=== PATIENT | female | born 1945 | race African-American/Black ===

== ENCOUNTER 2018-12-17 20:14 | Inpatient (IN) | payer MEDICARE ==
--- NOTE | 2018-12-17 20:47 | ER Document Report ---
ED Medical Screen (RME) - General Chief Complaint: Shortness Of Breath Stated Complaint: SHORTNESS OF BREATH,RIGHT HAND NUMBNESS/WEAKNESS Time Seen by Provider: 12/17/18 20:34 Notes: Patient is a 73-year-old female with a history of hypertension, MS, asthma, stroke, chronic bronchitis who presents to the emergency department with a chief complaint of shortness of breath. Patient states that over the past few days she has noticed she has become more short of breath when ambulating. Patient has had a dry cough. Patient states she feels like she can only take shallow breaths. Patient states she has not had a fever or chest pain. Patient denies nausea, vomiting, diarrhea or specific abdominal pain. The daughter who presents to triage with the patient states that the patient is an attic and has been smoking crack cocaine daily for years. They are recently visiting the area and the last use of crack cocaine was 3 to 4 days ago. Patient also smokes marijuana and drinks beer daily as well as smoking cigarettes. Patient states s he would like help with addiction. The daughter states they brought her to [place] and hopes to move to the area and get away from her friends who do drugs. TRAVEL OUTSIDE OF THE [place] IN LAST 30 DAYS: No Physical Exam - Vital signs Vitals: Temp Pulse Resp BP Pulse Ox 98.4 F 103 H 18 131/78 H 97 12/17/18 20:27 12/17/18 20:27 12/17/18 20:27 12/17/18 20:27 12/17/18 20:27 - Respiratory Respiratory status: No respiratory distress Breath sounds: Nonproductive cough, Rhonchi - Rhonchi that clears with cough. Chest palpation: Normal - Abdominal Inspection: Normal Distension: No distension Bowel sounds: Normal Tenderness: Nontender Organomegaly: No organomegaly Course - Re-evaluation Re-evalutation: 12/17/18 20:45 Upon initial evaluation in triage patient is sitting upright on the wheelchair and is able to speak in clear complete sentences. She is nontoxic appearing and is not in any distress. Will obtain basic lab work as well as a chest x-ray and EKG. I have greeted and performed a rapid initial assessment of this patient. A comprehensive ED assessment and evaluation of the patient, analysis of test results and completion of the medical decision making process will be conducted by additional ED providers. - Vital Signs Vital signs: Temp Pulse Resp BP Pulse Ox 98.4 F 103 H 18 131/78 H 97 12/17/18 20:27 12/17/18 20:27 12/17/18 20:27 12/17/18 20:27 12/17/18 20:27
--- NOTE | 2018-12-17 21:42 | RADIOLOGY REPORT (SQ) ---
XR CHEST 2 VIEWS EXAM DATE: 12/17/2018 8:46 PM CDT HISTORY: Shortness of breath, dry cough. COMPARISON: None. FINDINGS: The heart size is within normal limits. No consolidation, pleural effusion, or pneumothorax is seen. Hyperlucent lungs suggestive of emphysema. Compression deformity of lower thoracic vertebra, age indeterminate. IMPRESSION: No evidence of acute cardiopulmonary disease.
[2018-12-17 22:14] LABS: HEMATOCRIT 20.4 % (36.0-47.0); MEAN CORPUSCULAR HEMOGLOBIN 19.7 pg (27.0-33.4); MEAN CORPUSCULAR HGB CONC 30.2 g/dL (32.0-36.0); MEAN CORPUSCULAR VOLUME 65 fl (80-97); PLATELET COUNT 498 10^3/uL (150-450); RED BLOOD COUNT 3.12 10^6/uL (3.72-5.28); RED CELL DISTRIBUTION WIDTH 24.7 % (11.5-14.0); WHITE BLOOD COUNT 8.3 10^3/uL (4.0-10.5)
[2018-12-17 22:20] LABS: APPEARANCE,URINE CLEAR; BILIRUBIN,URINE NEGATIVE (NEGATIVE); COLOR,URINE STRAW; GLUCOSE, URINE NEGATIVE (NEGATIVE); KETONES,URINE NEGATIVE (NEGATIVE); LEUKOCYTE ESTERASE,URINE NEGATIVE (NEGATIVE); NITRITE,URINE NEGATIVE (NEGATIVE); PROTEIN,URINE NEGATIVE (NEGATIVE); URINE SPECIFIC GRAVITY 1.005; UROBILINOGEN,URINE NEGATIVE mg/dL (<2.0)
[2018-12-17 22:28] LABS: HEMOGLOBIN 6.2 g/dL (12.0-15.5)
[2018-12-17 22:31] LABS: URINE AMPHETAMINES SCREEN NEGATIVE; URINE BARBITURATES SCREEN NEGATIVE; URINE BENZODIAZEPINES SCREEN NEGATIVE; URINE MARIJUANA (THC) SCREEN NEGATIVE; URINE METHADONE SCREEN NEGATIVE; URINE PHENCYCLIDINE SCREEN NEGATIVE
[2018-12-17 22:32] LABS: ABSOLUTE MONOCYTES # (MANUAL) 0.5 10^3/uL (0.1-1.4); ALANINE AMINOTRANSFERASE 19 U/L (9-52); ALBUMIN 4.5 g/dL (3.5-5.0); ALKALINE PHOSPHATASE 105 U/L (38-126); ANION GAP 9 (5-19); ASPARTATE AMINO TRANSFERASE 28 U/L (14-36); BASOPHILS % (MANUAL) 1 % (0-2); BILIRUBIN,DIRECT 0.1 mg/dL (0.0-0.4); BILIRUBIN,TOTAL 0.1 mg/dL (0.2-1.3); BLOOD UREA NITROGEN 30 mg/dL (7-20); CALCIUM 9.6 mg/dL (8.4-10.2); CARBON DIOXIDE 27 mmol/L (22-30); CHLORIDE 102 mmol/L (98-107); EOSINOPHILS % (MANUAL) 3 % (0-6); GLUCOSE 105 mg/dL (75-110); LYMPHOCYTES % (MANUAL) 36 % (13-45); MONOCYTES % (MANUAL) 6 % (3-13); POTASSIUM 4.5 mmol/L (3.6-5.0); SEGMENTED NEUTROPHILS % (MAN) 54 % (42-78); TOTAL CELLS COUNTED 100; TOTAL PROTEIN 7.8 g/dL (6.3-8.2)
[2018-12-17 22:33] LABS: POLYCHROMASIA SLIGHT
[2018-12-17 22:34] LABS: ANISOCYTOSIS 3+; HYPOCHROMASIA 3+; OVALOCYTES 1+; PLATELET CLUMPS PRESENT; PLATELET COMMENT ADEQUATE; POIKILOCYTOSIS 1+
[2018-12-17 22:47] LABS: URINE COCAINE SCREEN UNCONFIRMED POSITIVE
[2018-12-17] MEDS ORDERED: NORMAL SALINE 250 ML IV PRN (23:16)
[2018-12-18] MEDS ORDERED: ACETAMINOPHEN 325 MG TABLET PO PRN (00:04)
--- NOTE | 2018-12-18 00:04 | ER Document Report ---
ED General - General Chief Complaint: Shortness Of Breath Stated Complaint: SHORTNESS OF BREATH,RIGHT HAND NUMBNESS/WEAKNESS Time Seen by Provider: 12/17/18 20:34 Notes: Patient is a 73-year-old female that presents to the emergency department for chief complaint of shortness of breath. Patient apparently recently moved down here to stay with her daughter, she is from [place], and is still currently using crack cocaine on a regular basis, her last use was 3 to 4 days ago, she has been more short of breath over the past week, particularly with exertion. She has had a few black stools, and had some nausea but has since resolved, she states that her stool is normal now. She denies any abdominal pain, chest pain, recent fevers, chills, night sweats, dysuria or hematuria. Denies any vaginal bleeding or discharge. No other complaints at this time. Past Medical History: Remote history of CVA, history of anemia, CAD Past Surgical History: Tonsillectomy, appendectomy Social History: Admits to daily crack cocaine use, former smoker, and occasional alcohol use. Family History: Reviewed and noncontributory for presenting illness Allergies: Reviewed, see documented allergy list. REVIEW OF SYSTEMS: Other than noted above, the 12 point review of systems was reviewed with the patient and were negative, all pertinent findings are included in the HPI. PHYSICAL EXAMINATION: Vital signs reviewed, nursing noted reviewed. GENERAL: Frail, elderly female, but in no acute distress. HEAD: Atraumatic, normocephalic. EYES: Eyes appear normal, extraocular movements intact, sclera anicteric, conjunctiva are normal. ENT: nares patent, oropharynx clear without exudates. Moist mucous membranes. NECK: Normal range of motion, supple without lymphadenopathy LUNGS: Breath sounds clear to auscultation bilaterally and equal. No wheezes rales or rhonchi. HEART: Heart rate borderline tachycardic, regular rhythm. ABDOMEN: Soft, nontender, normoactive bowel sounds. No rebound, guarding, or rigidity. No masses appreciated. EXTREMITIES: Nontender, good range of motion, no pitting or edema. NEUROLOGICAL: No focal neurological deficits. Moves all extremities spontaneously Motor and sensory grossly intact on exam. PSYCH: Normal mood, normal affect. SKIN: Warm, Dry, normal turgor, no rashes or lesions noted on exposed skin TRAVEL OUTSIDE OF THE [place] IN LAST 30 DAYS: No Past Medical History - Social History Smoking Status: Current Every Day Smoker Frequency of alcohol use: beer daily Drug Abuse: Cocaine Family History: Reviewed & Not Pertinent Patient has suicidal ideation: No Patient has homicidal ideation: No - Past Medical History Cardiac Medical History: Reports: Hx Hypertension Renal/ Medical History: Denies: Hx Peritoneal Dialysis Past Surgical History: Reports: Hx Appendectomy, Hx Section, Hx Hysterectomy, Hx Tonsillectomy Physical Exam - Vital signs Vitals: Temp Pulse Resp BP Pulse Ox 98.4 F 103 H 18 131/78 H 97 12/17/18 20:27 12/17/18 20:27 12/17/18 20:27 12/17/18 20:27 12/17/18 20:27 Course - Re-evaluation Re-evalutation: Patient seen and examined vital signs reviewed. Laboratory data and imaging were ordered as appropriate for the patient's presenting symptoms and complaint, with consideration of any critical or life threatening conditions that may be associated with their obtained history and exam as noted above. Patient was treated with 2 unit blood transfusion Results were reviewed when available and demonstrated hemoglobin of 6.2, blood work was essentially otherwise unremarkable, negative troponin, negative chest x-ray. The patient was re-evaluated and was stable, blood pressure was remaining stable , heart rate was borderline tachycardic, concern for GI bleeding, causing acute blood loss anemia, under what appears to be and likely underlying iron deficiency anemia given history of chronic anemia given 2 unit blood transfusion, will admit, for likely scope in the morning Results were discussed with the patient at this point after careful consideration I feel that that patient should be admitted to the hospital. This was discussed with the patient that it is in the best interest for their care to be admitted for further evaluation and management. Patient agreed with this plan of care. A call was placed to the admitting physician, Dr. Howard who graciously accepted the patient onto their service. *Note is created using voice recognition software and may contain spelling, syntax or grammatical errors. Laboratory 12/17/18 12/17/18 12/17/18 21:35 21:35 21:35 WBC 8.3 RBC 3.12 L Hgb 6.2 L Hct 20.4 L MCV 65 L MCH 19.7 L MCHC 30.2 L RDW 24.7 H Plt Count 498 H Total Counted 100 Seg Neutrophils % Not Reportable Seg Neuts % (Manual) 54 Lymphocytes % Not Reportable Lymphocytes % (Manual) 36 Monocytes % Not Reportable Monocytes % (Manual) 6 Eosinophils % Not Reportable Eosinophils % (Manual) 3 Basophils % Not Reportable Basophils % (Manual) 1 Absolute Neutrophils Not Reportable Abs Neuts (Manual) 4.5 Absolute Lymphocytes Not Reportable Abs Lymphs (Manual) 3.0 Absolute Monocytes Not Reportable Abs Monocytes (Manual) 0.5 Absolute Eosinophils Not Reportable Absolute Eos (Manual) 0.2 Absolute Basophils Not Reportable Abs Basophils (Manual) 0.1 Clumped Platelets PRESENT Platelet Comment ADEQUATE Polychromasia SLIGHT Hypochromasia 3+ Poikilocytosis 1+ Anisocytosis 3+ Microcytosis 3+ Ovalocytes 1+ Retic Count (auto) Absolute Retic Sodium 138.4 Potassium 4.5 Chloride 102 Carbon Dioxide 27 Anion Gap 9 BUN 30 H Creatinine 1.20 Est GFR ( Amer) 54 L Est GFR (Non-Af Amer) 44 L Glucose 105 Calcium 9.6 Total Bilirubin 0.1 L Direct Bilirubin 0.1 Neonat Total Bilirubin Not Reportable Neonat Direct Bilirubin Not Reportable Neonat Indirect Bili Not Reportable AST 28 ALT 19 Alkaline Phosphatase 105 Troponin I < 0.012 Total Protein 7.8 Albumin 4.5 Lipase 270.3 Urine Color Urine Appearance Urine pH Ur Specific [place] Urine Protein Urine Glucose (UA) Urine Ketones Urine Blood Urine Nitrite Urine Bilirubin Urine Urobilinogen Ur Leukocyte Esterase Urine RBC (Auto) U Hyaline Cast (Auto) Urine Bacteria (Auto) Squamous Epi Cells Auto Urine Ascorbic Acid Urine Opiates Screen Urine Methadone Screen Ur Barbiturates Screen Ur Phencyclidine Scrn Ur Amphetamines Screen U Benzodiazepines Scrn Urine Cocaine Screen U Marijuana (THC) Screen Blood Type Blood Type Confirm Antibody Screen Crossmatch 12/17/18 12/17/18 12/17/18 21:35 21:35 21:35 WBC RBC Hgb Hct MCV MCH MCHC RDW Plt Count Total Counted Seg Neutrophils % Seg Neuts % (Manual) Lymphocytes % Lymphocytes % (Manual) Monocytes % Monocytes % (Manual) Eosinophils % Eosinophils % (Manual) Basophils % Basophils % (Manual) Absolute Neutrophils Abs Neuts (Manual) Absolute Lymphocytes Abs Lymphs (Manual) Absolute Monocytes Abs Monocytes (Manual) Absolute Eosinophils Absolute Eos (Manual) Absolute Basophils Abs Basophils (Manual) Clumped Platelets Platelet Comment Polychromasia Hypochromasia Poikilocytosis Anisocytosis Microcytosis Ovalocytes Retic Count (auto) 2.45 Absolute Retic 0.077 Sodium Potassium Chloride Carbon Dioxide Anion Gap BUN Creatinine Est GFR ( Amer) Est GFR (Non-Af Amer) Glucose Calcium Total Bilirubin Direct Bilirubin Neonat Total Bilirubin Neonat Direct Bilirubin Neonat Indirect Bili AST ALT Alkaline Phosphatase Troponin I Total Protein Albumin Lipase Urine Color STRAW Urine Appearance CLEAR Urine pH 5.0 Ur Specific [place] 1.005 Urine Protein NEGATIVE Urine Glucose (UA) NEGATIVE Urine Ketones NEGATIVE Urine Blood NEGATIVE Urine Nitrite NEGATIVE Urine Bilirubin NEGATIVE Urine Urobilinogen NEGATIVE Ur Leukocyte Esterase NEGATIVE Urine RBC (Auto) 0 U Hyaline Cast (Auto) 1 Urine Bacteria (Auto) TRACE Squamous Epi Cells Auto <1 Urine Ascorbic Acid NEGATIVE Urine Opiates Screen NEGATIVE Urine Methadone Screen NEGATIVE Ur Barbiturates Screen NEGATIVE Ur Phencyclidine Scrn NEGATIVE Ur Amphetamines Screen NEGATIVE U Benzodiazepines Scrn NEGATIVE Urine Cocaine Screen UNCONFIRMED POSITIVE U Marijuana (THC) Screen NEGATIVE Blood Type Blood Type Confirm Antibody Screen Crossmatch 12/17/18 12/17/18 23:18 23:45 WBC RBC Hgb Hct MCV MCH MCHC RDW Plt Count Total Counted Seg Neutrophils % Seg Neuts % (Manual) Lymphocytes % Lymphocytes % (Manual) Monocytes % Monocytes % (Manual) Eosinophils % Eosinophils % (Manual) Basophils % Basophils % (Manual) Absolute Neutrophils Abs Neuts (Manual) Absolute Lymphocytes Abs Lymphs (Manual) Absolute Monocytes Abs Monocytes (Manual) Absolute Eosinophils Absolute Eos (Manual) Absolute Basophils Abs Basophils (Manual) Clumped Platelets Platelet Comment Polychromasia Hypochromasia Poikilocytosis Anisocytosis Microcytosis Ovalocytes Retic Count (auto) Absolute Retic Sodium Potassium Chloride Carbon Dioxide Anion Gap BUN Creatinine Est GFR ( Amer) Est GFR (Non-Af Amer) Glucose Calcium Total Bilirubin Direct Bilirubin Neonat Total Bilirubin Neonat Direct Bilirubin Neonat Indirect Bili AST ALT Alkaline Phosphatase Troponin I Total Protein Albumin Lipase Urine Color Urine Appearance Urine pH Ur Specific [place] Urine Protein Urine Glucose (UA) Urine Ketones Urine Blood Urine Nitrite Urine Bilirubin Urine Urobilinogen Ur Leukocyte Esterase Urine RBC (Auto) U Hyaline Cast (Auto) Urine Bacteria (Auto) Squamous Epi Cells Auto Urine Ascorbic Acid Urine Opiates Screen Urine Methadone Screen Ur Barbiturates Screen Ur Phencyclidine Scrn Ur Amphetamines Screen U Benzodiazepines Scrn Urine Cocaine Screen U Marijuana (THC) Screen Blood Type B POSITIVE Blood Type Confirm B POSITIVE Antibody Screen NEGATIVE Crossmatch See Detail Chest X-Ray 12/17/18 20:46 IMPRESSION: No evidence of acute cardiopulmonary disease. - Vital Signs Vital signs: Temp Pulse Resp BP Pulse Ox 98.4 F 103 H 18 131/78 H 97 12/17/18 20:27 12/17/18 20:27 12/17/18 20:27 12/17/18 20:27 12/17/18 20:27 - Laboratory Result Diagrams: 12/17/18 21:35 12/17/18 21:35 Laboratory results interpreted by me: 12/17/18 12/17/18 12/17/18 21:35 21:35 23:18 RBC 3.12 L Hgb 6.2 L Hct 20.4 L MCV 65 L MCH 19.7 L MCHC 30.2 L RDW 24.7 H Plt Count 498 H BUN 30 H Est GFR ( Amer) 54 L Est GFR (Non-Af Amer) 44 L Total Bilirubin 0.1 L Crossmatch See Detail - EKG Interpretation by Me Additional EKG results interpreted by me: 12/18/18 00:49 EKG demonstrates sinus rhythm with a ventricular rate of 91 bpm, normal axis, normal intervals, T wave inversion in lead III, no ST elevation. No prior for comparison. Discharge - Discharge Clinical Impression: Acute blood loss anemia GI bleeding Qualifiers: GI bleed type/associated pathology: unspecified gastrointestinal hemorrhage type Qualified Code(s): K92.2 - Gastrointestinal hemorrhage, unspecified Condition: Stable Disposition: ADMITTED INPATIENT Admitting Provider: Lee (Hospitalist) Unit Admitted: ICU
[2018-12-18] MEDS ORDERED: PANTOPRAZOLE SODIUM 40 MG VIAL IV PRN (00:08)
[2018-12-18] MEDS ORDERED: NORMAL SALINE 1000 ML 1,000 ML IV PRN (00:15)
[2018-12-18 00:23] LABS: ABSOLUTE RETICS # 0.077 10^6/uL (0.028-0.122); RETICULOCYTE COUNT (AUTO) 2.45 % (0.66-2.85)
[2018-12-18] MEDS ORDERED: IRON SUCROSE COMPLEX INJ/PF 100 MG/5 ML SDV IV ONE ×2 (00:30→00:39)
[2018-12-18] MEDS ORDERED: PANTOPRAZOLE SODIUM 80 MG in NORMAL SALINE 100 ML IV ONE (00:30)
[2018-12-18] MEDS ORDERED: PANTOPRAZOLE SODIUM 40 MG VIAL IV ONE ×2 (00:30→00:39)
[2018-12-18] MEDS ORDERED: DIAZEPAM 5 MG TABLET PO ONE (01:30)
[2018-12-18 01:57] LABS: IRON(TIBC) 16.8 ug/dL (37-170)
--- NOTE | 2018-12-18 03:22 | PDOC H&P ---
History of Present Illness Admission Date/PCP: 12/18/18 00:37 Patient complains of: Shortness of breath History of Present Illness: LOVE RAND is a 73 year old female with an unclear past medical history who presents hypomanic and acutely intoxicated by regular crack cocaine use. Patient is accompanied by her family who has relocated her from [facility] to [facility]. Patient has had complaints of shortness of breath with exertion prompting evaluation in the emergency room. She is found to have hypomania and microcytic anemia. She admits recent vomiting blood and black stools. Her history does include stomach ulcers status requiring surgery of unknown date. She denies abdominal pain current nausea, vomiting or diarrh ea. She is status post hysterectomy and denies dark-colored urine or vaginal bleeding. In the emergency room she is ordered to have 2 units of packed red blood cells and referred to the hospitalist for admission. Past Medical History Cardiac Medical History: Reports: Hypertension Pulmonary Medical History: Reports: Chronic Obstructive Pulmonary Disease (COPD) Psychiatric Medical History: Reports: Substance Abuse, Tobacco Dependency Past Surgical History Past Surgical History: Reports: Appendectomy, Section, Hysterectomy, Tonsillectomy Social History Information Source: Patient, REPLACED BY [facility] Records Smoking Status: Current Every Day Smoker Frequency of Alcohol Use: Social Drugs: Cocaine - Advance Directive Resuscitation Status: Do Not Resuscitate Family History Family History: DM, Hypertension Parental Family History Reviewed: Yes Children Family History Reviewed: Yes Sibling(s) Family History Reviewed.: Yes Review of Systems ROS unobtainable: Due to mental status Physical Exam Vital Signs: Temp Pulse Resp BP Pulse Ox 98.9 F 89 19 149/88 H 100 12/18/18 02:33 12/18/18 02:33 12/18/18 02:33 12/18/18 02:33 12/18/18 02:01 Intake & Output 12/16/18 12/17/18 12/18/18 11:59 11:59 11:59 Intake Total 0 Balance 0 Weight 32.8 kg General appearance: PRESENT: cooperative, mild distress, thin, well-developed, well-nourished. ABSENT: disheveled Head exam: PRESENT: atraumatic, normocephalic Eye exam: PRESENT: conjunctiva pale, EOMI, PERRLA. ABSENT: scleral icterus Ear exam: PRESENT: normal external ear exam Mouth exam: PRESENT: moist, tongue midline Neck exam: ABSENT: carotid bruit, JVD, lymphadenopathy, thyromegaly Respiratory exam: PRESENT: clear to auscultation morteza. ABSENT: rales, rhonchi, wheezes Cardiovascular exam: PRESENT: tachycardia. ABSENT: diastolic murmur, rubs, systolic murmur Pulses: PRESENT: normal dorsalis pedis pul Vascular exam: PRESENT: normal capillary refill GI/Abdominal exam: PRESENT: normal bowel sounds, soft. ABSENT: distended, guarding, mass, organolmegaly, rebound, tenderness Rectal exam: PRESENT: deferred Extremities exam: PRESENT: full ROM. ABSENT: calf tenderness, clubbing, pedal edema Neurological exam: PRESENT: alert, altered, awake, oriented to person, oriented to place, oriented to time, oriented to situation, CN II-XII grossly intact. ABSENT: motor sensory deficit Psychiatric exam: PRESENT: manic, unusual affect. ABSENT: depressed Skin exam: PRESENT: dry, intact, warm. ABSENT: cyanosis, rash Results Laboratory Results: 12/17/18 21:35 12/17/18 21:35 12/17/18 12/17/18 12/17/18 21:35 21:35 21:35 WBC 8.3 RBC 3.12 L Hgb 6.2 L Hct 20.4 L MCV 65 L MCH 19.7 L MCHC 30.2 L RDW 24.7 H Plt Count 498 H Seg Neutrophils % Not Reportable Lymphocytes % Not Reportable Monocytes % Not Reportable Eosinophils % Not Reportable Basophils % Not Reportable Absolute Neutrophils Not Reportable Absolute Lymphocytes Not Reportable Absolute Monocytes Not Reportable Absolute Eosinophils Not Reportable Absolute Basophils Not Reportable Retic Count (auto) Absolute Retic Sodium 138.4 Potassium 4.5 Chloride 102 Carbon Dioxide 27 Anion Gap 9 BUN 30 H Creatinine 1.20 Est GFR ( Amer) 54 L Est GFR (Non-Af Amer) 44 L Glucose 105 Calcium 9.6 Iron TIBC % Saturation Ferritin Total Bilirubin 0.1 L AST 28 ALT 19 Alkaline Phosphatase 105 Total Protein 7.8 Albumin 4.5 Lipase 270.3 Vitamin B12 Folate Urine Color STRAW Urine Appearance CLEAR Urine pH 5.0 Ur Specific [place] 1.005 Urine Protein NEGATIVE Urine Glucose (UA) NEGATIVE Urine Ketones NEGATIVE Urine Blood NEGATIVE Urine Nitrite NEGATIVE Ur Leukocyte Esterase NEGATIVE Urine RBC (Auto) 0 Blood Type Antibody Screen 12/17/18 12/17/18 12/17/18 21:35 21:35 23:18 WBC RBC Hgb Hct MCV MCH MCHC RDW Plt Count Seg Neutrophils % Lymphocytes % Monocytes % Eosinophils % Basophils % Absolute Neutrophils Absolute Lymphocytes Absolute Monocytes Absolute Eosinophils Absolute Basophils Retic Count (auto) 2.45 Absolute Retic 0.077 Sodium Potassium Chloride Carbon Dioxide Anion Gap BUN Creatinine Est GFR ( Amer) Est GFR (Non-Af Amer) Glucose Calcium Iron 16.8 L TIBC 482 H % Saturation 3 Ferritin 27.60 Total Bilirubin AST ALT Alkaline Phosphatase Total Protein Albumin Lipase Vitamin B12 434.0 Folate 10.90 Urine Color Urine Appearance Urine pH Ur Specific [place] Urine Protein Urine Glucose (UA) Urine Ketones Urine Blood Urine Nitrite Ur Leukocyte Esterase Urine RBC (Auto) Blood Type B POSITIVE Antibody Screen NEGATIVE 12/17/18 21:35 Troponin I < 0.012 Impressions: Chest X-Ray 12/17/18 20:46 IMPRESSION: No evidence of acute cardiopulmonary disease. Assessment and Plan - Diagnosis (1) GI bleeding Qualifiers: GI bleed type/associated pathology: unspecified gastrointestinal hemorrhage type Qualified Code(s): K92.2 - Gastrointestinal hemorrhage, unspecified Is this a current diagnosis for this admission?: Yes Plan: Likely upper GI bleed given history, IV Protonix, transfused 2 units of packed red blood cells, follow-up PT/INR, CBC and surgical consult (2) Acute blood loss anemia Is this a current diagnosis for this admission?: Yes Plan: Secondary to #1, clearly microcytic, iron, follow-up posttransfusion CBC (3) Cocaine abuse Is this a current diagnosis for this admission?: Yes Plan: Valium as needed, supportive measures - Time Time Spent with patient: 25-34 minutes - Inpatient Certification Medical Necessity: Need Close Monitoring Due to Risk of Patient Decompensation
[2018-12-18 03:53] LABS: INTERNATIONAL RATION (INR) 0.94; PROTHROMBIN TIME 12.6 SEC (11.4-15.4)
[2018-12-18] MEDS: DIAZEPAM 5 MG TABLET PO PRN ×2 (05:41→14:54)
--- NOTE | 2018-12-18 08:57 | EKG REPORT ---
SEVERITY:- BORDERLINE ECG - SINUS RHYTHM BORDERLINE T ABNORMALITIES, INFERIOR LEADS : Confirmed by: Sean Zuniga MD 18-Dec-2018 08:56:52
[2018-12-18] MEDS: NORMAL SALINE 100 ML with PANTOPRAZOLE SODIUM 80 MG IV PRN ×4 (09:32→18:13)
[2018-12-18 10:39] LABS: HEMATOCRIT 32.9 % (36.0-47.0); MEAN CORPUSCULAR HEMOGLOBIN 23.3 pg (27.0-33.4); MEAN CORPUSCULAR HGB CONC 32.1 g/dL (32.0-36.0); PLATELET COUNT 427 10^3/uL (150-450); RED BLOOD COUNT 4.53 10^6/uL (3.72-5.28); RED CELL DISTRIBUTION WIDTH 26.5 % (11.5-14.0); WHITE BLOOD COUNT 7.6 10^3/uL (4.0-10.5)
[2018-12-18 10:41] LABS: HEMOGLOBIN 10.6 g/dL (12.0-15.5); MEAN CORPUSCULAR VOLUME 73 fl (80-97)
[2018-12-18 11:04] LABS: ABSOLUTE LYMPHOCYTES# (MANUAL) 2.1 10^3/uL (0.5-4.7); ABSOLUTE MONOCYTES # (MANUAL) 0.3 10^3/uL (0.1-1.4); BASOPHILS % (MANUAL) 1 % (0-2); EOSINOPHILS % (MANUAL) 2 % (0-6); LYMPHOCYTES % (MANUAL) 28 % (13-45); MONOCYTES % (MANUAL) 4 % (3-13); NUCLEATED RED BLOOD CELLS 1 /100 WBC (0); SEGMENTED NEUTROPHILS % (MAN) 65 % (42-78); TOTAL CELLS COUNTED 100
[2018-12-18 11:05] LABS: ANISOCYTOSIS 3+; PLATELET COMMENT ADEQUATE; PLATELET LARGE PRESENT; POLYCHROMASIA 1+; TARGET CELLS 2+
[2018-12-18] MEDS ORDERED: GLUCAGON,HUMAN RECOMB 1 MG INJ SUBCUT PRN (12:06)
[2018-12-18] MEDS ORDERED: DEXTROSE 40% GEL 15 GM TUBE PO PRN ×2 (12:06)
[2018-12-18] MEDS ORDERED: DEXTROSE 50%-WATER 25 GM/50 ML DISP.SYRIN IV PRN ×2 (12:06)
[2018-12-18] MEDS ORDERED: PEG 3350/NA SULF,BICARB,CL/KCL 4000 ML PO ONE (15:00)
--- NOTE | 2018-12-19 00:35 | PDOC CONSULTATION ---
Consultation Consult Date: 12/19/18 Provider Consulted: SENA MAZARIEGOS Consult reason:: For endoscopy History of Present Illness Admission Date/PCP: 12/18/18 00:37 History of Present Illness: LOVE RAND is a 73 year old female who claims she has been having dark stools past few days with some dark vomitus. Was seen in ED for shortness of breath. Initial Hb was 6.2 and after 2 Units PRBCs came up to 10.6. She apparently takes crack cocaine and her last use was 3-4 days ago. Past Medical History Cardiac Medical History: Reports: Hypertension Pulmonary Medical History: Reports: Chronic Obstructive Pulmonary Disease (COPD) Psychiatric Medical History: Reports: Substance Abuse, Tobacco Dependency Past Surgical History Past Surgical History: Reports: Appendectomy, Section, Hysterectomy, Tonsillectomy Social History Smoking Status: Current Every Day Smoker Frequency of Alcohol Use: Social Hx Recreational Drug Use: Yes Drugs: Cocaine - Advance Directive Resuscitation Status: Do Not Resuscitate Family History Family History: DM, Hypertension Parental Family History Reviewed: Yes Children Family History Reviewed: No Sibling(s) Family History Reviewed.: No Medication/Allergy Home Medications: Apixaban [Eliquis 5 mg Tablet] 5 mg PO BID 12/18/18 Aspirin [Ecotrin 81 mg EC Tablet] 81 mg PO DAILY 12/18/18 Calcium Carbonate/Vitamin D3 [Calcium 600 + Vit D Tablet] 1 tab PO DAILY 12/18/18 Chlorthalidone [Hygroton 25 mg Tablet] 25 mg PO DAILY 12/18/18 Cholecalciferol (Vitamin D3) [Vitamin D3 2000 unit Tablet] 2,000 unit PO DAILY 12/18/18 Allergies/Adverse Reactions: No Known Allergies Allergy (Unverified 12/18/18 12:40) Review of Systems Constitutional: PRESENT: as per HPI Gastrointestinal: PRESENT: melena, other - denies pains Neurological: PRESENT: weakness Physical Exam Vital Signs: Temp Pulse Resp BP Pulse Ox 98.3 F 89 18 107/65 100 12/19/18 00:05 12/19/18 00:05 12/19/18 00:05 12/19/18 00:05 12/19/18 00:05 Intake & Output 12/17/18 12/18/18 12/19/18 06:59 06:59 06:59 Intake Total 300 400 Output Total 1400 Balance 300 -1000 Weight 32.8 kg General appearance: PRESENT: mild distress Head exam: PRESENT: atraumatic Eye exam: PRESENT: conjunctiva pale Mouth exam: PRESENT: dry mucosa Respiratory exam: PRESENT: clear to auscultation morteza Pulses: PRESENT: normal radial pulses Vascular exam: PRESENT: normal capillary refill GI/Abdominal exam: PRESENT: soft - non tender Rectal exam: PRESENT: deferred Extremities exam: PRESENT: full ROM Musculoskeletal exam: PRESENT: ambulatory Skin exam: PRESENT: normal color, warm Results Laboratory Results: 12/18/18 10:12 12/17/18 21:35 12/17/18 12/17/18 12/18/18 21:35 23:18 10:12 WBC 7.6 RBC 4.53 Hgb 10.6 L D Hct 32.9 L MCV 73 L D MCH 23.3 L MCHC 32.1 RDW 26.5 H Plt Count 427 Seg Neutrophils % Not Reportable Lymphocytes % Not Reportable Monocytes % Not Reportable Eosinophils % Not Reportable Basophils % Not Reportable Absolute Neutrophils Not Reportable Absolute Lymphocytes Not Reportable Absolute Monocytes Not Reportable Absolute Eosinophils Not Reportable Absolute Basophils Not Reportable Iron 16.8 L TIBC 482 H % Saturation 3 Ferritin 27.60 Vitamin B12 434.0 Folate 10.90 Blood Type B POSITIVE Antibody Screen NEGATIVE 12/17/18 21:35 Troponin I < 0.012 Impressions: Chest X-Ray 12/17/18 20:46 IMPRESSION: No evidence of acute cardiopulmonary disease. Assessment & Plan - Diagnosis (1) Acute blood loss anemia Is this a current diagnosis for this admission?: Yes (2) Cocaine abuse Is this a current diagnosis for this admission?: Yes (3) GI bleeding Qualifiers: GI bleed type/associated pathology: unspecified gastrointestinal hemorrhage type Qualified Code(s): K92.2 - Gastrointestinal hemorrhage, unspecified Is this a current diagnosis for this admission?: Yes - Time Time Spent: 30 to 50 Minutes - Plan Summary Plan Summary: Will place on bowel prep for EGD and colonoscopy by Dr Wilcox on 12/19/18.
[2018-12-19] MEDS: NORMAL SALINE 100 ML with PANTOPRAZOLE SODIUM 80 MG IV PRN ×2 (05:36)
[2018-12-19 07:10] LABS: ABSOLUTE EOSINOPHILS # (AUTO) 0.1 10^3/uL (0.0-0.6); ABSOLUTE LYMPHOCYTES (AUTO) 2.4 10^3/uL (0.5-4.7); ABSOLUTE MONOCYTES (AUTO) 0.4 10^3/uL (0.1-1.4); ABSOLUTE NEUT (AUTO) 11.9 10^3/uL (1.7-8.2); BASOPHILS % (AUTO) 0.2 % (0-2); EOSINOPHILS % (AUTO) 0.7 % (0-6); HEMATOCRIT 34.2 % (36.0-47.0); HEMOGLOBIN 10.9 g/dL (12.0-15.5); LYMPHOCYTES % (AUTO) 16.2 % (13-45); MEAN CORPUSCULAR HEMOGLOBIN 23.1 pg (27.0-33.4); MEAN CORPUSCULAR HGB CONC 31.7 g/dL (32.0-36.0); MEAN CORPUSCULAR VOLUME 73 fl (80-97); MONOCYTES % (AUTO) 2.9 % (3-13); PLATELET COUNT 469 10^3/uL (150-450); RED BLOOD COUNT 4.69 10^6/uL (3.72-5.28); RED CELL DISTRIBUTION WIDTH 28.3 % (11.5-14.0); TOTAL CELLS COUNTED % (AUTO) 100 %; WHITE BLOOD COUNT 14.8 10^3/uL (4.0-10.5)
[2018-12-19 08:02] LABS: INTERNATIONAL RATION (INR) 1.03; PROTHROMBIN TIME 13.5 SEC (11.4-15.4)
[2018-12-19 08:03] LABS: ANISOCYTOSIS 3+; PLATELET COMMENT ADEQUATE; PLATELET LARGE PRESENT; TARGET CELLS 2+
[2018-12-19 08:04] LABS: POLYCHROMASIA SLIGHT
--- NOTE | 2018-12-19 14:15 | PDOC PROGRESS REPORT ---
Subjective Progress Note for:: 12/19/18 Subjective:: LOVE RAND is a 73 year old female with an unclear past medical history who presents hypomanic and acutely intoxicated by regular crack cocaine use. Patient is accompanied by her family who has relocated her from [facility] to [facility]. Patient has had complaints of shortness of breath with exertion prompting evaluation in the emergency room. She is found to have hypomania and microcytic anemia. She admits recent vomiting blood and black stools. Her history does include stomach ulcers status requiring surgery of unknown date. She denies abdominal pain current nausea, vomiting or diarrhea. She is status post hysterectomy and denies dark-colored urine or vaginal bleeding. In the emergency room she is ordered to have 2 units of packed red blood cells and referred to the hospitalist for admission. 12/19/2018. Patient has been refusing her bowel prep, not cooperating with nursing staff, she is ambulatory, tolerating p.o. intake, does not seem to be in any acute distress, wants to smoke otherwise threatening to leave AMA. I had 2 encounters with her today once in the morning once in the afternoon when family was around. She had told family that she had abdominal pain but when I went to the room she was sitting in bed in no apparent distress and denying to have any pain, she did agree to take the bowel prep tonight, and agreed to use nicotine patch instead of smoking. Denies any fever, chills, nausea, vomiting, diarrhea, constipation or any urinary symptoms. Reason For Visit: SYMPTOMATIC ANEMIA Physical Exam Vital Signs: Temp Pulse Resp BP Pulse Ox 98.4 F 115 H 18 119/61 98 12/19/18 03:26 12/19/18 07:00 12/19/18 03:26 12/19/18 03:26 12/19/18 03:26 Intake & Output 12/18/18 12/19/18 12/20/18 06:59 06:59 06:59 Intake Total 300 400 Output Total 1400 Balance 300 -1000 Weight 32.8 kg 34.1 kg General appearance: PRESENT: no acute distress, thin Head exam: PRESENT: atraumatic, normocephalic Neck exam: ABSENT: carotid bruit, JVD, lymphadenopathy, thyromegaly Respiratory exam: PRESENT: clear to auscultation morteza. ABSENT: rales, rhonchi, wheezes Pulses: PRESENT: normal dorsalis pedis pul GI/Abdominal exam: PRESENT: normal bowel sounds, soft. ABSENT: distended, guarding, mass, organolmegaly, rebound, tenderness Extremities exam: PRESENT: full ROM. ABSENT: calf tenderness, clubbing, pedal edema Neurological exam: PRESENT: alert, awake, oriented to person, oriented to place, oriented to time, oriented to situation, CN II-XII grossly intact. ABSENT: motor sensory deficit Results Laboratory Results: 12/19/18 05:55 12/17/18 21:35 12/19/18 05:55 WBC 14.8 H RBC 4.69 Hgb 10.9 L Hct 34.2 L MCV 73 L MCH 23.1 L MCHC 31.7 L RDW 28.3 H Plt Count 469 H Seg Neutrophils % 80.0 H Lymphocytes % 16.2 Monocytes % 2.9 L Eosinophils % 0.7 Basophils % 0.2 Absolute Neutrophils 11.9 H Absolute Lymphocytes 2.4 Absolute Monocytes 0.4 Absolute Eosinophils 0.1 Absolute Basophils 0.0 12/17/18 21:35 Troponin I < 0.012 Impressions: Chest X-Ray 12/17/18 20:46 IMPRESSION: No evidence of acute cardiopulmonary disease. Assessment and Plan - Diagnosis (1) GI bleeding Qualifiers: GI bleed type/associated pathology: unspecified gastrointestinal hemorrhage type Qualified Code(s): K92.2 - Gastrointestinal hemorrhage, unspecified Is this a current diagnosis for this admission?: Yes Plan: Likely upper GI bleed given history Continue IV Protonix. Status post 2 PRBC transfusion. H&H stable. PT/INR WNL. Pending upper and lower GI endoscopy. Will initiate bowel prep tonight. Endoscopy tomorrow. Monitor H&H. Supportive transfusions. (2) Acute blood loss anemia Is this a current diagnosis for this admission?: Yes Plan: Secondary to #1. Serum iron 12.6. We will give iron transfusion. Pending upper and lower GI endoscopy. Monitor H&H. Supportive transfusions. Received 100 mg of iron sucrose on admission. Status post 2 PRBC transfusion on admission. (3) Cocaine abuse Is this a current diagnosis for this admission?: Yes Plan: Valium as needed, supportive measures (4) Tobacco abuse Is this a current diagnosis for this admission?: Yes Plan: Counseled on quitting. NicoDerm patch provided. (5) Hypertension Is this a current diagnosis for this admission?: Yes Plan: We will start low-dose lisinopril. With hydralazine PRN. Monitor vitals.
[2018-12-19] MEDS ORDERED: DEXTROSE 5%-NORMAL SALINE 1,000 ML IV PRN (14:19)
[2018-12-19] MEDS ORDERED: PEG 3350/NA SULF,BICARB,CL/KCL 4000 ML PO ONE (18:00)
[2018-12-19] MEDS: LISINOPRIL 5 MG TABLET PO SCH (18:15)
[2018-12-19] MEDS: NICOTINE 21 MG/24 HR PATCH.TD24 TD SCH (18:23)
[2018-12-20 05:37] LABS: HEMATOCRIT 31.5 % (36.0-47.0); HEMOGLOBIN 9.8 g/dL (12.0-15.5); MEAN CORPUSCULAR HGB CONC 31.1 g/dL (32.0-36.0); MEAN CORPUSCULAR VOLUME 74 fl (80-97); PLATELET COUNT 410 10^3/uL (150-450); RED BLOOD COUNT 4.25 10^6/uL (3.72-5.28); RED CELL DISTRIBUTION WIDTH 28.1 % (11.5-14.0); WHITE BLOOD COUNT 11.6 10^3/uL (4.0-10.5)
[2018-12-20 05:38] LABS: INTERNATIONAL RATION (INR) 1.07; PROTHROMBIN TIME 13.9 SEC (11.4-15.4)
[2018-12-20 06:11] LABS: ABSOLUTE LYMPHOCYTES# (MANUAL) 1.7 10^3/uL (0.5-4.7); ABSOLUTE MONOCYTES # (MANUAL) 0.2 10^3/uL (0.1-1.4); BAND NEUTROPHILS % (MANUAL) 1 % (3-5); BASOPHILS % (MANUAL) 0 % (0-2); EOSINOPHILS % (MANUAL) 0 % (0-6); LYMPHOCYTES % (MANUAL) 15 % (13-45); MONOCYTES % (MANUAL) 2 % (3-13); SEGMENTED NEUTROPHILS % (MAN) 82 % (42-78); TOTAL CELLS COUNTED 100
[2018-12-20 06:13] LABS: ANISOCYTOSIS 4+; BURR CELLS SLIGHT; HYPOCHROMASIA 1+; OVALOCYTES SLIGHT; PLATELET COMMENT ADEQUATE; POIKILOCYTOSIS 1+; POLYCHROMASIA SLIGHT; SCHISTOCYTES SLIGHT; TARGET CELLS SLIGHT; TEAR DROP CELLS SLIGHT
[2018-12-20 09:14] LABS: URINE AMPHETAMINES SCREEN NEGATIVE; URINE BARBITURATES SCREEN NEGATIVE; URINE COCAINE SCREEN NEGATIVE; URINE MARIJUANA (THC) SCREEN NEGATIVE; URINE METHADONE SCREEN NEGATIVE; URINE PHENCYCLIDINE SCREEN NEGATIVE
[2018-12-20] MEDS: NICOTINE 21 MG/24 HR PATCH.TD24 TD SCH (09:53)
[2018-12-20] MEDS: LISINOPRIL 5 MG TABLET PO SCH (09:53)
[2018-12-20] MEDS ORDERED: DIPHENHYDRAMINE HCL 50 MG/ML VIAL IV PRN (09:58)
[2018-12-20] MEDS ORDERED: FENTANYL CITRATE INJ/PF 100 MCG/2 ML AMPUL IV PRN ×3 (09:58)
[2018-12-20] MEDS ORDERED: PROMETHAZINE HCL INJ 25 MG/1 ML VIAL IV PRN (09:58)
[2018-12-20] MEDS ORDERED: ONDANSETRON HCL INJ/PF 4 MG/2 ML SDV IV PRN (09:58)
[2018-12-20 10:30] LABS: URINE BENZODIAZEPINES SCREEN UNCONFIRMED POSITIVE
[2018-12-20] MEDS ORDERED: PROPOFOL INJ 200 MG/20 ML VIAL IV ONE (10:34)
[2018-12-20] MEDS ORDERED: MIDAZOLAM 2 MG/2 ML INJ ONE (11:45)
[2018-12-20] MEDS ORDERED: FENTANYL CITRATE INJ/PF 250 MCG/5 ML AMPULE ONE (11:45)
[2018-12-20] MEDS ORDERED: BUPIVACAINE INJ/PF LIPOSOME/PF 266 MG/20 ML SDV ONE (11:46)
[2018-12-20] MEDS ORDERED: AMPICILLIN SOD/SULBACTAM 3 GM VIAL ONE (11:46)
[2018-12-20] MEDS ORDERED: ACETAMINOPHEN 1,000 MG/100 ML RTUPB IV ONE (11:47)
[2018-12-20] MEDS ORDERED: AMPICILLIN SODIUM/SULBACTAM NA 3 GM in NORMAL SALINE 100 ML IV PRN (11:53)
[2018-12-20] MEDS ORDERED: AMPICILLIN SOD/SULBACTAM 3 GM VIAL IV ONE (12:00)
[2018-12-20] MEDS ORDERED: PROPOFOL 1,000 MG/100 ML INFUS..BTL IV ONE (13:17)
--- NOTE | 2018-12-20 13:29 | Operative Report ---
Operative Report DATE OF SURGERY: 12/20/18 PREOPERATIVE DIAGNOSIS: . Gastrointestinal bleed. 2. Blood loss anemia, acut e. 3. Long history of cocaine abuse. 4. History of peptic ulcer disease POSTOPERATIVE DIAGNOSIS: Same with 1. Diffuse gastritis likely source gastrointestinal bleed. 2. Remote history of partial gastrectomy and gastrojejunostomy Billroth II reconstruction. 3. Extensive sigmoid and left colon diverticulosis. 4. Acute perforation of splenic flexure diverticulum wi th limited intraperitoneal contamination OPERATION: 1. Esophagogastroduodenoscopy. 2. Gastric body mucosal biopsy. 3. Colonoscopy to transverse colon. 4. Exploratory laparotomy. 5. Repair of splenic flexure colonic perforation. 6. Drainage of left upper quadrant of the peritoneal cavity. 7. Open lysis of adhesions SURGEON: USMAN ANN ANESTHESIA: GA TISSUE REMOVED OR ALTERED: Gastric mucosal biopsy; intraperitoneal fluid and clot COMPLICATIONS: None ESTIMATED BLOOD LOSS: 5 cc INTRAOPERATIVE FINDINGS: See below PROCEDURE: The patient was taken from the preop holding her to the main operating room where LMAC anesthesia was induced. Patient is placed in the left lateral cubitus position, and instrumentation set up for upper and lower endoscopy Surgical plan and surgical timeout were conducted. Oral mouthpiece inserted. The flexible adult upper endoscope was advanced to the hypopharynx uneventfully, down the esophagus and into the stomach. There was evidence of recent bleeding with minimal clot. The stomach had a fair amount of bile there in. There were 2 gastrojejunal anastomoses, one in the mid body of the stomach and 1 of the more distal body of the stomach. The configuration was most consistent with a previous partial gastrectomy or pyloric exclusion procedure, with the Billroth II loop reconstruction. I cannulated both after Patti E. Farren limbs of the gastrojejunostomy and there was no evidence of tumor stricture bleeding or polyp. I irrigated out as much bile as I could from the retained stomach and I could not see an obvious tumor or specific bleeding source. Again the principal pathologic finding was diffuse gastritis. Photos taken. A random biopsy of the gastric body was formed with bleeding minimal. The scope was brought back to the GE junction which is approximately 35 cm from the incisor. The esophagus was noted to be essentially unremarkable with no evidence of tumor stricture bleeding or clot. No biopsies the esophagus were performed. The patient was repositioned for colonoscopy. A rectal exam was performed and there was no visible or palpable anorectal pathology. There was a fair amount of residual stool. Using a flexible colonoscope, the rectum was cannulated, and the scope advanced with a significant amount of extracorporeal manipulation through the sigmoid colon. There was a significant amount of formed stool requiring region of flushing. There were extensive diverticulosis of the sigmoid colon and left colon. After the scope was advanced up into the left colon, scope retroflexed in a unpredictable fashion. I then got a quick look at what appeared to be small bowel loops. At this moment I felt there was a perforation. It was straightened out, and despite efforts to advance and retract the scope, I could not definitively see a perforation site however. During this time the patient did become more distended, consistent with pneumoperitoneum. Because of these findings, I felt that to abort the colonoscopy, and explore the patient for presumed colonic perforation. The scope was brought back to the left colon, sigmoid colon and anorectal canal. Again, other than some residual stool and extensive diverticular disease, no evidence of bleeding or clot. Because this was deemed an emergency, and there was no family available for conferencing, we elected to proceed with exploratory laparotomy. The upper and lower endoscopy services were performed in the OR under LMAC anesthesia. The anesthesia team very commonly transfer the patient to a operating table, and induced general anesthesia. A Myrick catheter was inserted with the return of clear yellow urine. The abdomen was exposed, prepped and draped in sterile fashion. Of note during this entire preparatory. And throughout the subsequent operation the patient remained hemodynamically stable with good saturations. A second timeout was conducted. The abdomen was opened through a standard midline incision above and below the umbilicus. Upon entering the peritoneal cavity there was a gush of air. We immediately encountered significant adhesions between the transverse colon several loops of small bowel in the anterior abdominal wall. Adhesions were taken down as encountered to permit satisfactory evaluation of the peritoneal cavity. Of note there was no foul smell or visible stool at this point in the exploration. Once the adhesions were taken down, we are able to lyse the patient's previous anatomy. It was apparent that the patient had a previous antecolic gastrojejunostomy, loop configuration consistent with a Billroth II reconstruction. There was significant scarring above the transverse colon, and the right upper quadrant and this area was not taken down. We turned our attention to the left colon and sigmoid colon which appeared to be full of diverticuli but no evidence of free fluid or perforation. Of note the cecum was quite generous with air. Following the descending colon up towards the splenic flexure I saw some stool leaking out of the colon. There are in fact was an anterior perforation and upon further inspection it was apparent that the patient had perforated diverticulum. There was no evidence of trauma, laceration or any anatomic findings to suggest this was directly due to the colonoscope. The surrounding colon was well vascularized. I felt that an inversion of the tic would be the most expeditious way of addressing this local problem. Of note the amount of stool contamination was negligible and the surrounding tissues. The diverticulum was inverted and closed transversely with 3 interrupted 3-0 Vicryl sutures in a Lembert fashion and a second row of interrupted 3-0 PDS sutures. I felt that the repair was secure. I carefully irrigated the left upper quadrant, particularly the sub-phrenic space of clot and some cloudy fluid and then chose to place a large Ike drain in the left upper paracolic gutter. This was instilled through the left mid abdominal wall. The drain was secured to the skin with 2-0 Prolene suture We now irrigated the peritoneal cavity out with 2 L of saline. Of note prior to closure of the diverticular perforation, we did milk a significant amount of gas and a prograde fashion out the perforation. We confirmed now of the appropriate positioning of the nasogastric tube into the body of the stomach. It was taped into position. At this point sponge and needle counts correct. We closed the abdomen with 2 double-stranded #1 PDS sutures and skin approximated with aba. Sterile dressing was applied. Patient tolerated the procedure well, remained and then taken to the care unit in stable condition.
[2018-12-20] MEDS: PROPOFOL 1,000 MG/100 ML INFUS..BTL IV PRN (13:30)
--- NOTE | 2018-12-20 14:08 | RADIOLOGY REPORT (SQ) ---
EXAM DESCRIPTION: CHEST SINGLE VIEW COMPLETED DATE/TIME: 12/20/2018 1:57 pm REASON FOR STUDY: ET Tube Placement / NG Tube Placement COMPARISON: 12/17/2018 EXAM PARAMETERS: NUMBER OF VIEWS: One view. TECHNIQUE: Single frontal radiographic view of the chest acquired. RADIATION DOSE: NA LIMITATIONS: None. FINDINGS: Interval placement of endotracheal tube, tip above the odalis. Interval placement of esop hagogastric tube, tip below the diaphragm, side port above the gastroesophageal junction. Recommend advancement. There is new heterogeneous opacity and volume loss of the left lung with a small associ ated left pleural effusion. Probable emphysema. Cardiomegaly. IMPRESSION: 1. Interval placement of endotracheal tube, tip above the odalis. 2. Interval placement of esophagogastric tube, tip below the diaphragm, side port above the gastroeso phageal junction. Recommend advancement. 3. There is new heterogeneous opacity and volume loss of the left lung with a small associated left p leural effusion, concerning for infection or aspiration. 4. Probable emphysema. 5. Cardiomegaly. TECHNICAL DOCUMENTATION: JOB ID: [id number] [employer]- All Rights Reserved Reading location - IP/workstation name: [email or web address]
[2018-12-20] MEDS ORDERED: FERRIC CARBOXYMALTOSE INJ 750 MG/15 ML VIAL IV ONE (14:16)
[2018-12-20 15:19] LABS: ARTERIAL BLOOD BASE EXCESS -5.3 mmol/L; ARTERIAL BLOOD H2CO3 1.43 mmol/L (1.05-1.35); ARTERIAL BLOOD HCO3 21.5 mmol/L (20-24); ARTERIAL BLOOD O2 SATURATION 91.1 % (94-98); ARTERIAL BLOOD PCO2 47.5 mmHg (35-45); ARTERIAL BLOOD PH 7.27 (7.35-7.45); ARTERIAL BLOOD TOTAL CO2 22.9 mmol/L (21-25)
[2018-12-20 15:20] LABS: ARTERIAL BLOOD FIO2 40%
[2018-12-20] MEDS ORDERED: NORMAL SALINE 1000 ML 1,000 ML IV PRN (16:42)
[2018-12-20] MEDS ORDERED: NORMAL SALINE 1000 ML 1,000 ML IV ONE (16:45)
[2018-12-20] MEDS ORDERED: PHENYLEPHRINE HCL INJ/PF 10 MG/1 ML SDV ONE (16:47)
[2018-12-20] MEDS ORDERED: DEXTROSE 5%-WATER 250 ML with PHENYLEPHRINE HCL 40 MG IV PRN ×2 (16:58)
[2018-12-20] MEDS ORDERED: MIDAZOLAM HCL 50 MG/100 ML RTUINJ ONE (17:03)
[2018-12-20] MEDS: MIDAZOLAM HCL 50 MG/100 ML RTUINJ IV PRN (17:15)
--- NOTE | 2018-12-20 17:32 | PDOC PROGRESS REPORT ---
Subjective Progress Note for:: 12/20/18 Subjective:: Patient presents to the ICU from the operating room. She is intubated post laparotomy for colon perforation. Reason For Visit: SYMPTOMATIC ANEMIA Perforated colon Physical Exam Vital Signs: Temp Pulse Resp BP Pulse Ox 97.2 F 78 16 139/88 H 95 12/20/18 07:52 12/20/18 07:52 12/20/18 13:25 12/20/18 13:25 12/20/18 13:25 Intake & Output 12/19/18 12/20/18 12/21/18 06:59 06:59 06:59 Intake Total 400 1100 1000 Output Total 1400 Balance -1000 1100 1000 Weight 34.1 kg 34.1 kg General appearance: PRESENT: no acute distress, thin, other - Intubated and sedated Head exam: PRESENT: atraumatic, normocephalic Ear exam: PRESENT: normal external ear exam Mouth exam: PRESENT: dry mucosa, other - Endotracheal tube in place. Nasogastric tube in place. Respiratory exam: PRESENT: clear to auscultation morteza, symmetrical, unlabored. ABSENT: rales, rhonchi, tachypnea, wheezes Cardiovascular exam: PRESENT: RRR, +S1, +S2 GI/Abdominal exam: PRESENT: hypoactive bowel sounds, soft, other - Midline abdominal incision with dressing. ABSENT: distended, tenderness Rectal exam: PRESENT: deferred Gentrourinary exam: PRESENT: indwelling catheter Extremities exam: ABSENT: pedal edema Musculoskeletal exam: PRESENT: other - Decreased muscle mass Neurological exam: ABSENT: awake Psychiatric exam: ABSENT: agitated Focused psych exam: ABSENT: restlessness Results Laboratory Results: 12/20/18 04:45 12/17/18 21:35 12/20/18 04:45 WBC 11.6 H RBC 4.25 Hgb 9.8 L Hct 31.5 L MCV 74 L MCH 23.0 L MCHC 31.1 L RDW 28.1 H Plt Count 410 Seg Neutrophils % Not Reportable Lymphocytes % Not Reportable Monocytes % Not Reportable Eosinophils % Not Reportable Basophils % Not Reportable Absolute Neutrophils Not Reportable Absolute Lymphocytes Not Reportable Absolute Monocytes Not Reportable Absolute Eosinophils Not Reportable Absolute Basophils Not Reportable 12/17/18 21:35 Troponin I < 0.012 Impressions: Chest X-Ray 12/17/18 20:46 IMPRESSION: No evidence of acute cardiopulmonary disease. Assessment and Plan - Diagnosis (1) Colon perforation Is this a current diagnosis for this admission?: Yes Plan: 12/20/2018-the patient was being worked up for a GI bleed. She underwent esophagogastroscopy. No evidence of bleeding was noted. She underwent a colonoscopy and was noted to have diverticular disease and suffered a pe rforation. She was immediately taken to the operating room. Dr. Mclaughlin identified the perforation and closed it surgically. The patient remained intubated and transferred to the intensive care unit. We will continue Unasyn 3 g 4 times a day. (2) Acute blood loss anemia Is this a current diagnosis for this admission?: Yes Plan: 12/20/2018-on admission the patient's hemoglobin was 6.2. She received 2 units of packed red blood cells. Her hemoglobin today was 9.8. We will continue to monitor her hemoglobin. There is no melena or hematemesis noted. (3) Cocaine abuse Is this a current diagnosis for this admission?: Yes Plan: 12/20/2018-patient continues to use cocaine. Now that she is intubated we will need to take this into account regarding sedation and pain medications. Monitor for any evidence of withdrawal. (4) Hypertension Qualifiers: Hypertension type: essential hypertension Qualified Code(s): I10 - Essential (primary) hypertension Is this a current diagnosis for this admission?: Yes Plan: 12/20/2018-the patient is evidently on chlorthalidone at home. She is on 2.5 mg of lisinopril with as needed hydralazine. We will monitor the patient's blood pressure and adjust medications accordingly. (5) Tobacco abuse Is this a current diagnosis for this admission?: Yes Plan: 12/20/2018-apply nicotine patch daily. - Time Time Spent with patient: 15-24 minutes Medications reviewed and adjusted accordingly: Yes
[2018-12-20] MEDS: AMPICILLIN SODIUM/SULBACTAM NA 3 GM in NORMAL SALINE 100 ML IV SCH ×2 (17:49→23:55)
--- NOTE | 2018-12-20 17:50 | PDOC PROGRESS REPORT ---
Subjective Progress Note for:: 12/20/18 Subjective:: The patient remains intubated. I was called to the ICU as her systolic blood pressure dropped into the 60s. In addition the blood gas revealed a pH of 7.27 with a PCO2 of 47.5 and a bicarb of 21. Reason For Visit: SYMPTOMATIC ANEMIA Physical Exam Vital Signs: Temp Pulse Resp BP Pulse Ox 97.0 F 89 16 63/54 L 97 12/20/18 16:00 12/20/18 16:00 12/20/18 16:27 12/20/18 16:27 12/20/18 16:27 Intake & Output 12/19/18 12/20/18 12/21/18 06:59 06:59 06:59 Intake Total 400 1100 1017 Output Total 1400 0 Balance -1000 1100 1017 Weight 34.1 kg 34.1 kg 37 kg General appearance: PRESENT: no acute distress, thin Head exam: PRESENT: atraumatic, normocephalic Ear exam: PRESENT: normal external ear exam Mouth exam: PRESENT: other - Endotracheal and nasogastric tubes in place Respiratory exam: PRESENT: symmetrical, unlabored. ABSENT: clear to auscultation morteza - Coarse/congested breath sounds bilaterally, rales, rhonchi, tachypnea, wheezes Cardiovascular exam: PRESENT: RRR, +S1, +S2 GI/Abdominal exam: PRESENT: hypoactive bowel sounds, soft. ABSENT: distended, tenderness Rectal exam: PRESENT: deferred Gentrourinary exam: PRESENT: indwelling catheter Extremities exam: ABSENT: joint swelling, pedal edema Musculoskeletal exam: PRESENT: other - Decreased muscle mass Neurological exam: ABSENT: awake Psychiatric exam: ABSENT: agitated Focused psych exam: ABSENT: restlessness Results Laboratory Results: 12/20/18 04:45 12/17/18 21:35 12/20/18 12/20/18 04:45 15:10 WBC 11.6 H RBC 4.25 Hgb 9.8 L Hct 31.5 L MCV 74 L MCH 23.0 L MCHC 31.1 L RDW 28.1 H Plt Count 410 Seg Neutrophils % Not Reportable Lymphocytes % Not Reportable Monocytes % Not Reportable Eosinophils % Not Reportable Basophils % Not Reportable Absolute Neutrophils Not Reportable Absolute Lymphocytes Not Reportable Absolute Monocytes Not Reportable Absolute Eosinophils Not Reportable Absolute Basophils Not Reportable Carbonic Acid 1.43 H HCO3/H2CO3 Ratio 15:1 ABG pH 7.27 L ABG pCO2 47.5 H ABG pO2 68.0 L ABG HCO3 21.5 ABG O2 Saturation 91.1 L ABG Base Excess -5.3 FiO2 40% 12/17/18 21:35 Troponin I < 0.012 Impressions: Chest X-Ray 12/20/18 13:43 IMPRESSION: 1. Interval placement of endotracheal tube, tip above the odalis. 2. Interval placement of esophagogastric tube, tip below the diaphragm, side port above the gastroesophageal junction. Recommend advancement. 3. There is new heterogeneous opacity and volume loss of the left lung with a small associated left pleural effusion, concerning for infection or aspiration. 4. Probable emphysema. 5. Cardiomegaly. Assessment and Plan - Diagnosis (1) Colon perforation Is this a current diagnosis for this admission?: Yes Plan: 12/20/2018-the patient was being worked up for a GI bleed. She underwent esophagogastroscopy. No evidence of bleeding was noted. She underwent a colonoscopy and was noted to have diverticular disease and suffered a perforation. She was immediately taken to the operating room. Dr. Mclaughlin identified the perforation and closed it surgically. The patient remained intubated and transferred to the intensive care unit. We will continue Unasyn 3 g 4 times a day. (2) Acute blood loss anemia Is this a current diagnosis for this admission?: Yes Plan: 12/20/2018-on admission the patient's hemoglobin was 6.2. She received 2 units of packed red blood cells. Her hemoglobin today was 9.8. We will continue to monitor her hemoglobin. There is no melena or hematemesis noted. (3) Cocaine abuse Is this a current diagnosis for this admission?: Yes Plan: 12/20/2018-patient continues to use cocaine. Now that she is intubated we will need to take this into account regarding sedation and pain medications. Monitor for any evidence of withdrawal. (4) Hypertension Qualifiers: Hypertension type: essential hypertension Qualified Code(s): I10 - Essential (primary) hypertension Is this a current diagnosis for this admission?: Yes Plan: 12/20/2018-the patient is evidently on chlorthalidone at home. She is on 2.5 mg of lisinopril with as needed hydralazine. We will monitor the patient's blood pressure and adjust medications accordingly. 12/20/2018 critical care I was called to the ICU. The patient's systolic blood pressure had dropped into the 60s. Her urine output has fallen. We gave her 1 L of saline wide open and will start a second liter of saline at 150 mL/h. We will then likely decrease the rate and monitor her blood pressure, intake and output. I have also started on Erik-Synephrine and if fluid resuscitation brings her pressure up we will taper her off of the Erik-Synephrine. (5) Tobacco abuse Is this a current diagnosis for this admission?: Yes Plan: 12/20/2018-apply nicotine patch daily. (6) Acute respiratory acidosis Is this a current diagnosis for this admission?: Yes Plan: Critical care The patient's ventilator settings on arrival to the ICU more tidal volume 350 with a rate of 12. A blood gas obtained once the patient was on the ventilator for approximately 1 hour revealed a PCO2 of 7.27 with a PCO2 of 47.5 and a bicarb of 21.5 on an FiO2 40%. I increase the tidal volume to 450 mL an increased her rate to 14. We will obtain a blood gas in approximately 30 to 60 minutes and adjust the ventilator settings if needed. - Time Total Critical Time (Minutes): 25 Medications reviewed and adjusted accordingly: Yes
--- NOTE | 2018-12-20 17:52 | Progress Note ---
Provider Note Provider Note: While on the Erik-Synephrine and after receiving the first liter of saline wide open the patient's blood pressure responded nicely. We wean the propofol injection became agitated. We will add Versed and try and maintain a balance of light sedation. When she was awake she clearly conveyed that she wanted the tube out. We will run the second liter of fluid at 150 mL/h and then reduce to 75 mL/h and monitor her urine output. With the first liter of fluid her urine output did lease picker and she has put out 700 mL of urine. It appears that we will likely be able to taper the Erik-Synephrine to off relatively quickly. Want to try and avoid heavy sedation through the night.
[2018-12-20 18:42] LABS: ARTERIAL BLOOD BASE EXCESS -5.6 mmol/L; ARTERIAL BLOOD H2CO3 0.91 mmol/L (1.05-1.35); ARTERIAL BLOOD HCO3 18.3 mmol/L (20-24); ARTERIAL BLOOD PCO2 30.3 mmHg (35-45); ARTERIAL BLOOD PO2 90.4 mmHg (80-100); ARTERIAL BLOOD TOTAL CO2 19.2 mmol/L (21-25)
[2018-12-20 18:44] LABS: ARTERIAL BLOOD FIO2 40%
[2018-12-20] MEDS: PANTOPRAZOLE SODIUM 40 MG VIAL IV SCH (21:25)
[2018-12-21 04:19] LABS: ARTERIAL BLOOD BASE EXCESS -5.3 mmol/L; ARTERIAL BLOOD H2CO3 0.92 mmol/L (1.05-1.35); ARTERIAL BLOOD HCO3 18.6 mmol/L (20-24); ARTERIAL BLOOD O2 SATURATION 93.5 % (94-98); ARTERIAL BLOOD PCO2 30.5 mmHg (35-45); ARTERIAL BLOOD PO2 66.2 mmHg (80-100); ARTERIAL BLOOD TOTAL CO2 19.5 mmol/L (21-25)
[2018-12-21 04:20] LABS: ARTERIAL BLOOD FIO2 30%
[2018-12-21 04:35] LABS: ABSOLUTE MONOCYTES # (MANUAL) 0.1 10^3/uL (0.1-1.4); BASOPHILS % (MANUAL) 0 % (0-2); EOSINOPHILS % (MANUAL) 0 % (0-6); LYMPHOCYTES % (MANUAL) 10 % (13-45); MONOCYTES % (MANUAL) 1 % (3-13); TOTAL CELLS COUNTED 100
[2018-12-21 04:38] LABS: HEMATOCRIT 32.8 % (36.0-47.0); HEMOGLOBIN 10.4 g/dL (12.0-15.5); MEAN CORPUSCULAR HEMOGLOBIN 23.1 pg (27.0-33.4); MEAN CORPUSCULAR HGB CONC 31.7 g/dL (32.0-36.0); MEAN CORPUSCULAR VOLUME 73 fl (80-97); RED BLOOD COUNT 4.51 10^6/uL (3.72-5.28); RED CELL DISTRIBUTION WIDTH 29.2 % (11.5-14.0); WHITE BLOOD COUNT 9.6 10^3/uL (4.0-10.5)
[2018-12-21 04:41] LABS: ALANINE AMINOTRANSFERASE 38 U/L (9-52); ALBUMIN 2.9 g/dL (3.5-5.0); ALKALINE PHOSPHATASE 57 U/L (38-126); ANION GAP 10 (5-19); ASPARTATE AMINO TRANSFERASE 31 U/L (14-36); BILIRUBIN,DIRECT 0.3 mg/dL (0.0-0.4); BILIRUBIN,TOTAL 0.5 mg/dL (0.2-1.3); BLOOD UREA NITROGEN 11 mg/dL (7-20); CALCIUM 7.3 mg/dL (8.4-10.2); CARBON DIOXIDE 21 mmol/L (22-30); CHLORIDE 110 mmol/L (98-107); GLUCOSE 107 mg/dL (75-110); POTASSIUM 3.7 mmol/L (3.6-5.0); TOTAL PROTEIN 5.7 g/dL (6.3-8.2)
[2018-12-21 04:42] LABS: SEGMENTED NEUTROPHILS % (MAN) 70 % (42-78)
[2018-12-21 04:43] LABS: NUCLEATED RED BLOOD CELLS 1 /100 WBC (0)
[2018-12-21 04:45] LABS: PLATELET CLUMPS PRESENT
[2018-12-21 04:46] LABS: ANISOCYTOSIS 3+; HYPOCHROMASIA 2+; POIKILOCYTOSIS 2+; POLYCHROMASIA 1+; SCHISTOCYTES 2+; TARGET CELLS 1+
[2018-12-21 04:47] LABS: BAND NEUTROPHILS % (MANUAL) 15 % (3-5); BURR CELLS 1+; METAMYELOCYTES % (MANUAL) 3 % (0); MYELOCYTES % (MANUAL) 1 % (0)
[2018-12-21 04:48] LABS: PLATELET COUNT 296 10^3/uL (150-450)
[2018-12-21] MEDS ORDERED: MAGNESIUM SULFATE/D5W 1 GM/100 ML RTUPB IV ONE (04:58)
[2018-12-21] MEDS: AMPICILLIN SODIUM/SULBACTAM NA 3 GM in NORMAL SALINE 100 ML IV SCH ×4 (05:01→23:01)
[2018-12-21] MEDS: MIDAZOLAM HCL 50 MG/100 ML RTUINJ IV PRN (05:01)
[2018-12-21] MEDS: PROPOFOL 1,000 MG/100 ML INFUS..BTL IV PRN (05:01)
[2018-12-21] MEDS: MAGNESIUM SULFATE/D5W 1 GM/100 ML RTUPB IV SCH ×3 (05:08→07:29)
--- NOTE | 2018-12-21 08:26 | RADIOLOGY REPORT (SQ) ---
EXAM DESCRIPTION: CHEST SINGLE VIEW COMPLETED DATE/TIME: 12/21/2018 6:53 am REASON FOR STUDY: intubated, s/p surgery COMPARISON: 12/20/2018. EXAM PARAMETERS: NUMBER OF VIEWS: One view. TECHNIQUE: Single frontal radiographic view of the chest acquired. RADIATION DOSE: NA LIMITATIONS: None. FINDINGS: LUNGS AND PLEURA: Volume loss on the left. Left basilar density and small left pleural ef fusion. No pneumothorax. Right lung clear. MEDIASTINUM AND HILAR STRUCTURES: No masses. Contour normal. HEART AND VASCULAR STRUCTURES: Heart normal in size. Normal vasculature. BONES: No acute findings. HARDWARE: Stable endotracheal tube and nasogastric tube. OTHER: No other significant finding. IMPRESSION: NO SIGNIFICANT INTERVAL CHANGE. TECHNICAL DOCUMENTATION: JOB ID: [id number] [employer]- All Rights Reserved Reading location - IP/workstation name: [email or web address]
[2018-12-21] MEDS: NICOTINE 21 MG/24 HR PATCH.TD24 TD SCH (09:54)
[2018-12-21] MEDS: PANTOPRAZOLE SODIUM 40 MG VIAL IV SCH ×2 (09:54→21:35)
[2018-12-21] MEDS: IPRATROPIUM/ALBUTEROL 0.5-2.5 MG/3 ML AMPUL NEB PRN (13:56)
[2018-12-21] MEDS ORDERED: LORAZEPAM INJ 2 MG/1 ML VIAL ONE (13:58)
[2018-12-21] MEDS ORDERED: FENTANYL CITRATE INJ/PF 100 MCG/2 ML AMPUL ONE (14:26)
[2018-12-21] MEDS ORDERED: FENTANYL CITRATE INJ/PF 100 MCG/2 ML AMPUL IV PRN (14:37)
--- NOTE | 2018-12-21 17:06 | PDOC PROGRESS REPORT ---
Subjective Progress Note for:: 12/21/18 Subjective:: The patient was extubated earlier today. She is tachypnea on BiPAP. I will order benzodiazepine and analgesia therapy. She is back to DNR status after her surgery. Reason For Visit: SYMPTOMATIC ANEMIA Physical Exam Vital Signs: Temp Pulse Resp BP Pulse Ox 99.7 F 102 H 26 H 120/68 100 12/21/18 12:00 12/21/18 13:56 12/21/18 13:56 12/21/18 13:30 12/21/18 13:56 Intake & Output 12/20/18 12/21/18 12/22/18 06:59 06:59 06:59 Intake Total 1100 7412 300 Output Total 4010 115 Balance 1100 3402 185 Weight 34.1 kg 38.6 kg General appearance: PRESENT: mild distress, thin, other - On BiPAP. Sleeping and nonverbal Head exam: PRESENT: atraumatic, normocephalic Ear exam: PRESENT: normal external ear exam Mouth exam: PRESENT: other - On BiPAP Respiratory exam: PRESENT: clear to auscultation morteza, tachypnea. ABSENT: rales, rhonchi, wheezes Cardiovascular exam: PRESENT: +S1, +S2, tachycardia GI/Abdominal exam: PRESENT: distended, hypoactive bowel sounds, soft, other - Midline abdominal incision Rectal exam: PRESENT: deferred Gentrourinary exam: PRESENT: indwelling catheter Extremities exam: ABSENT: pedal edema Musculoskeletal exam: PRESENT: other - Decreased muscle mass Neurological exam: ABSENT: alert, awake Psychiatric exam: PRESENT: other - Unable to assess Results Laboratory Results: 12/21/18 04:10 12/21/18 04:10 12/20/18 12/20/18 12/21/18 15:10 18:35 04:02 WBC RBC Hgb Hct MCV MCH MCHC RDW Plt Count Seg Neutrophils % Lymphocytes % Monocytes % Eosinophils % Basophils % Absolute Neutrophils Absolute Lymphocytes Absolute Monocytes Absolute Eosinophils Absolute Basophils Carbonic Acid 1.43 H 0.91 L 0.92 L HCO3/H2CO3 Ratio 15:1 20:1 20:1 ABG pH 7.27 L 7.40 7.40 ABG pCO2 47.5 H 30.3 L 30.5 L ABG pO2 68.0 L 90.4 66.2 L ABG HCO3 21.5 18.3 L 18.6 L ABG O2 Saturation 91.1 L 97.0 93.5 L ABG Base Excess -5.3 -5.6 -5.3 FiO2 40% 40% 30% Sodium Potassium Chloride Carbon Dioxide Anion Gap BUN Creatinine Est GFR ( Amer) Est GFR (Non-Af Amer) Glucose Calcium Magnesium Total Bilirubin AST ALT Alkaline Phosphatase Total Protein Albumin 12/21/18 12/21/18 04:10 04:10 WBC 9.6 RBC 4.51 Hgb 10.4 L Hct 32.8 L MCV 73 L MCH 23.1 L MCHC 31.7 L RDW 29.2 H Plt Count 296 Seg Neutrophils % Not Reportable Lymphocytes % Not Reportable Monocytes % Not Reportable Eosinophils % Not Reportable Basophils % Not Reportable Absolute Neutrophils Not Reportable Absolute Lymphocytes Not Reportable Absolute Monocytes Not Reportable Absolute Eosinophils Not Reportable Absolute Basophils Not Reportable Carbonic Acid HCO3/H2CO3 Ratio ABG pH ABG pCO2 ABG pO2 ABG HCO3 ABG O2 Saturation ABG Base Excess FiO2 Sodium 141.4 Potassium 3.7 Chloride 110 H Carbon Dioxide 21 L Anion Gap 10 BUN 11 Creatinine 0.71 Est GFR ( Amer) > 60 Est GFR (Non-Af Amer) > 60 Glucose 107 Calcium 7.3 L Magnesium 1.3 L Total Bilirubin 0.5 AST 31 ALT 38 Alkaline Phosphatase 57 Total Protein 5.7 L Albumin 2.9 L 12/17/18 21:35 Troponin I < 0.012 Impressions: Chest X-Ray 12/21/18 06:00 IMPRESSION: NO SIGNIFICANT INTERVAL CHANGE. Assessment and Plan - Diagnosis (1) Colon perforation Is this a current diagnosis for this admission?: Yes Plan: 12/20/2018-the patient was being worked up for a GI bleed. She underwent esophagogastroscopy. No evidence of bleeding was noted. She underwent a colonoscopy and was noted to have diverticular disease and suffered a perforation. She was immediately taken to the operating room. Dr. Mclaughlin identified the perforation and closed it surgically. The patient remained intubated and transferred to the intensive care unit. We will continue Unasyn 3 g 4 times a day. 12/21/2018-she is postop day #1. She has been extubated. She is on BiPAP. She is currently tachypneic but this could be due to pain. I have ordered 2 different doses of fentanyl as well as a benzodiazepine for any anxiety. Defer to surgery for incision management. Her nasogastric tube has dark brown liquid. The nurse reports that this is just in the tube and her NG tube output has decreased almost to nonexistent. (2) Acute blood loss anemia Is this a current diagnosis for this admission?: Yes Plan: 12/20/2018-on admission the patient's hemoglobin was 6.2. She received 2 units of packed red blood cells. Her hemoglobin today was 9.8. We will continue to monitor her hemoglobin. There is no melena or hematemesis noted. 12/21/2018-the hemoglobin is stable. We will continue to monitor. No evidence of kim bleeding. (3) Cocaine abuse Is this a current diagnosis for this admission?: Yes Plan: 12/20/2018-patient continues to use cocaine. Now that she is intubated we will need to take this into account regarding sedation and pain medications. Monitor for any evidence of withdrawal. 12/21/2018-continue current regimen of analgesia and antianxiety medications. (4) Hypertension Qualifiers: Hypertension type: essential hypertension Qualified Code(s): I10 - Essential (primary) hypertension Is this a current diagnosis for this admission?: Yes Plan: 12/20/2018-the patient is evidently on chlorthalidone at home. She is on 2.5 mg of lisinopril with as needed hydralazine. We will monitor the patient's blood pressure and adjust medications accordingly. 12/20/2018 critical care I was called to the ICU. The patient's systolic blood pressure had dropped into the 60s. Her urine output has fallen. We gave her 1 L of saline wide open and will start a second liter of saline at 150 mL/h. We will then likely decrease the rate and monitor her blood pressure, intake and output. I have also started on Erik-Synephrine and if fluid resuscitation brings her pressure up we will taper her off of the Erik-Synephrine. 12/21/2018-the patient's blood pressure appears to stabilize. She was tachypneic and tachycardic during this encounter and her blood pressure systolic was in the 90s. We will continue to monitor. I expect when she is more comfortable and less tachycardic that her blood pressure will improve. She was almost 3.5 L net positive fluid balance yesterday. We will continue to monitor urine output. She was transiently on Erik-Synephrine as noted above. Hopefully we can avoid r estarting this medication. (5) Tobacco abuse Is this a current diagnosis for this admission?: Yes Plan: 12/20/2018-apply nicotine patch daily. 12/21/2018-as above (6) Acute respiratory acidosis Is this a current diagnosis for this admission?: Yes Plan: Critical care The patient's ventilator settings on arrival to the ICU more tidal volume 350 with a rate of 12. A blood gas obtained once the patient was on the ventilator for approximately 1 hour revealed a PCO2 of 7.27 with a PCO2 of 47.5 and a bicarb of 21.5 on an FiO2 40%. I increase the tidal volume to 450 mL an increased her rate to 14. We will obtain a blood gas in approximately 30 to 60 minutes and adjust the ventilator settings if needed. 12/21/2018-pH is back to 7.4 but her PCO2 is still elevated at 66. It is much better than yesterday. She is now extubated. We will recheck a blood gas now that she is on BiPAP. - Time Time Spent with patient: 25-34 minutes Medications reviewed and adjusted accordingly: Yes
[2018-12-21] MEDS ORDERED: NALOXONE HCL INJ 2 MG/2 ML DISP.SYRIN ONE (18:17)
--- NOTE | 2018-12-21 19:36 | PDOC PROGRESS REPORT ---
Subjective Progress Note for:: 12/21/18 Subjective:: Extubated. Drowsy Reason For Visit: SYMPTOMATIC ANEMIA Physical Exam Vital Signs: Temp Pulse Resp BP Pulse Ox 99.1 F 96 21 H 148/86 H 99 12/21/18 16:00 12/21/18 18:00 12/21/18 19:00 12/21/18 18:28 12/21/18 19:00 Intake & Output 12/20/18 12/21/18 12/22/18 06:59 06:59 06:59 Intake Total 1100 7412 381 Output Total 4010 335 Balance 1100 3402 46 Weight 34.1 kg 38.6 kg Exam: On Bipap. VS stable. NGT and Drain small amount of drainage Abdomen is mildly distended but soft Incision dressing is dry Results Laboratory Results: 12/21/18 04:10 12/21/18 04:10 12/21/18 12/21/18 12/21/18 04:02 04:10 04:10 WBC 9.6 RBC 4.51 Hgb 10.4 L Hct 32.8 L MCV 73 L MCH 23.1 L MCHC 31.7 L RDW 29.2 H Plt Count 296 Seg Neutrophils % Not Reportable Lymphocytes % Not Reportable Monocytes % Not Reportable Eosinophils % Not Reportable Basophils % Not Reportable Absolute Neutrophils Not Reportable Absolute Lymphocytes Not Reportable Absolute Monocytes Not Reportable Absolute Eosinophils Not Reportable Absolute Basophils Not Reportable Carbonic Acid 0.92 L HCO3/H2CO3 Ratio 20:1 ABG pH 7.40 ABG pCO2 30.5 L ABG pO2 66.2 L ABG HCO3 18.6 L ABG O2 Saturation 93.5 L ABG Base Excess -5.3 FiO2 30% Sodium 141.4 Potassium 3.7 Chloride 110 H Carbon Dioxide 21 L Anion Gap 10 BUN 11 Creatinine 0.71 Est GFR ( Amer) > 60 Est GFR (Non-Af Amer) > 60 Glucose 107 Calcium 7.3 L Magnesium 1.3 L Total Bilirubin 0.5 AST 31 ALT 38 Alkaline Phosphatase 57 Total Protein 5.7 L Albumin 2.9 L 12/17/18 21:35 Troponin I < 0.012 Impressions: Chest X-Ray 12/21/18 06:00 IMPRESSION: NO SIGNIFICANT INTERVAL CHANGE. Assessment & Plan - Diagnosis (1) Acute blood loss anemia Is this a current diagnosis for this admission?: Yes (2) Cocaine abuse Is this a current diagnosis for this admission?: Yes (3) GI bleeding Qualifiers: GI bleed type/associated pathology: unspecified gastrointestinal hemorrhage type Qualified Code(s): K92.2 - Gastrointestinal hemorrhage, unspecified Is this a current diagnosis for this admission?: Yes (4) Colon perforation Is this a current diagnosis for this admission?: Yes - Time Time Spent with patient: 15-24 minutes - Inpatient Certification Medical Necessity: Need Close Monitoring Due to Risk of Patient Decompensation, Need For IV Fluids, Need for Pain Control - Plan Summary Plan Summary: Continue ICU care overnight Continue NGT and IV antibiotics
[2018-12-21] MEDS: FENTANYL CITRATE INJ/PF 100 MCG/2 ML AMPUL IV PRN (20:28)
[2018-12-21] MEDS: NORMAL SALINE 1000 ML 1,000 ML IV PRN (22:53)
[2018-12-21] MEDS: LORAZEPAM INJ 2 MG/1 ML VIAL IV PRN (23:01)
[2018-12-22] MEDS: FENTANYL CITRATE INJ/PF 100 MCG/2 ML AMPUL IV PRN ×2 (03:24→12:37)
[2018-12-22 04:25] LABS: HEMATOCRIT 30.2 % (36.0-47.0); HEMOGLOBIN 9.4 g/dL (12.0-15.5); MEAN CORPUSCULAR HGB CONC 31.2 g/dL (32.0-36.0); MEAN CORPUSCULAR VOLUME 74 fl (80-97); PLATELET COUNT 272 10^3/uL (150-450); RED BLOOD COUNT 4.09 10^6/uL (3.72-5.28); RED CELL DISTRIBUTION WIDTH 29.9 % (11.5-14.0); WHITE BLOOD COUNT 15.1 10^3/uL (4.0-10.5)
[2018-12-22 04:36] LABS: ABSOLUTE LYMPHOCYTES# (MANUAL) 0.5 10^3/uL (0.5-4.7); ABSOLUTE MONOCYTES # (MANUAL) 0.5 10^3/uL (0.1-1.4); BAND NEUTROPHILS % (MANUAL) 15 % (3-5); BASOPHILS % (MANUAL) 0 % (0-2); EOSINOPHILS % (MANUAL) 0 % (0-6); LYMPHOCYTES % (MANUAL) 3 % (13-45); MONOCYTES % (MANUAL) 3 % (3-13); PLATELET CLUMPS PRESENT; SEGMENTED NEUTROPHILS % (MAN) 79 % (42-78); TOTAL CELLS COUNTED 100
[2018-12-22 04:38] LABS: ANISOCYTOSIS 3+; BURR CELLS 1+; HYPOCHROMASIA 2+; POIKILOCYTOSIS 1+; SCHISTOCYTES 1+; TARGET CELLS 1+; TEAR DROP CELLS SLIGHT
[2018-12-22 04:45] LABS: ALANINE AMINOTRANSFERASE 29 U/L (9-52); ALBUMIN 2.8 g/dL (3.5-5.0); ALKALINE PHOSPHATASE 73 U/L (38-126); ANION GAP 8 (5-19); ASPARTATE AMINO TRANSFERASE 23 U/L (14-36); BILIRUBIN,DIRECT 0.3 mg/dL (0.0-0.4); BILIRUBIN,TOTAL 0.4 mg/dL (0.2-1.3); BLOOD UREA NITROGEN 14 mg/dL (7-20); CALCIUM 7.5 mg/dL (8.4-10.2); CARBON DIOXIDE 20 mmol/L (22-30); CHLORIDE 113 mmol/L (98-107); GLUCOSE 97 mg/dL (75-110); POTASSIUM 3.8 mmol/L (3.6-5.0); TOTAL PROTEIN 5.9 g/dL (6.3-8.2)
[2018-12-22] MEDS: LORAZEPAM INJ 2 MG/1 ML VIAL IV PRN (04:45)
[2018-12-22] MEDS: AMPICILLIN SODIUM/SULBACTAM NA 3 GM in NORMAL SALINE 100 ML IV SCH ×4 (05:04→23:02)
[2018-12-22 05:37] LABS: ARTERIAL BLOOD BASE EXCESS -6.6 mmol/L; ARTERIAL BLOOD H2CO3 1.05 mmol/L (1.05-1.35); ARTERIAL BLOOD HCO3 18.5 mmol/L (20-24); ARTERIAL BLOOD O2 SATURATION 92.7 % (94-98); ARTERIAL BLOOD PCO2 34.9 mmHg (35-45); ARTERIAL BLOOD PH 7.34 (7.35-7.45); ARTERIAL BLOOD PO2 67.6 mmHg (80-100); ARTERIAL BLOOD TOTAL CO2 19.6 mmol/L (21-25)
[2018-12-22 05:48] LABS: ARTERIAL BLOOD FIO2 30%
--- NOTE | 2018-12-22 09:13 | RADIOLOGY REPORT (SQ) ---
EXAM DESCRIPTION: CHEST SINGLE VIEW COMPLETED DATE/TIME: 12/22/2018 6:48 am REASON FOR STUDY: pna COMPARISON: 12/21/2018 NUMBER OF VIEWS: One view. TECHNIQUE: Single frontal radiographic view of the chest acquired. LIMITATIONS: None. FINDINGS: LUNGS AND PLEURA: The patient has been extubated. There small persistent bilateral pleura l effusions not significantly changed. NG tube remains in place. MEDIASTINUM AND HILAR STRUCTURES: Stable in appearance. HEART AND VASCULAR STRUCTURES: Heart normal in size. Normal vasculature. BONES: No acute findings. HARDWARE: None in the chest. OTHER: No other significant finding. IMPRESSION: Endotracheal tube is been removed. No other significant interval change in the chest. TECHNICAL DOCUMENTATION: JOB ID: [id number] [employer]- All Rights Reserved Reading location - IP/workstation name: [email or web address]
--- NOTE | 2018-12-22 09:26 | PDOC PROGRESS REPORT ---
Subjective Progress Note for:: 12/22/18 Subjective:: Patient remains in intensive care; BiPAP currently; no hemodynamic problems overnight; intermittently follows commands. Patient has been made a DNR. Reason For Visit: SYMPTOMATIC ANEMIA Physical Exam Vital Signs: Temp Pulse Resp BP Pulse Ox 98.6 F 97 21 H 157/99 H 94 12/22/18 08:00 12/22/18 08:00 12/22/18 08:00 12/22/18 08:00 12/22/18 08:00 Intake & Output 12/21/18 12/22/18 12/23/18 06:59 06:59 06:59 Intake Total 7412 651 Output Total 4010 1410 45 Balance 3512 -759 -45 Weight 38.6 kg 41.6 kg General appearance: PRESENT: mild distress GI/Abdominal exam: PRESENT: other - Abdomen minimally distended; Ike drain left upper quadrant removed. Appropriate midline tenderness associated with recent incision Results Laboratory Results: 12/22/18 04:13 12/22/18 04:13 12/22/18 12/22/18 12/22/18 04:13 04:13 05:16 WBC 15.1 H RBC 4.09 Hgb 9.4 L Hct 30.2 L MCV 74 L MCH 23.0 L MCHC 31.2 L RDW 29.9 H Plt Count 272 Seg Neutrophils % Not Reportable Lymphocytes % Not Reportable Monocytes % Not Reportable Eosinophils % Not Reportable Basophils % Not Reportable Absolute Neutrophils Not Reportable Absolute Lymphocytes Not Reportable Absolute Monocytes Not Reportable Absolute Eosinophils Not Reportable Absolute Basophils Not Reportable Carbonic Acid 1.05 HCO3/H2CO3 Ratio 17:1 ABG pH 7.34 L ABG pCO2 34.9 L ABG pO2 67.6 L ABG HCO3 18.5 L ABG O2 Saturation 92.7 L ABG Base Excess -6.6 FiO2 30% Sodium 140.8 Potassium 3.8 Chloride 113 H Carbon Dioxide 20 L Anion Gap 8 BUN 14 Creatinine 0.93 Est GFR ( Amer) > 60 Est GFR (Non-Af Amer) 59 L Glucose 97 Calcium 7.5 L Magnesium 2.3 Total Bilirubin 0.4 AST 23 ALT 29 Alkaline Phosphatase 73 Total Protein 5.9 L Albumin 2.8 L 12/17/18 21:35 Troponin I < 0.012 Impressions: Chest X-Ray 12/22/18 06:00 IMPRESSION: Endotracheal tube is been removed. No other significant interval change in the chest. Assessment & Plan - Diagnosis (1) Diverticular disease of intestine with perforation and abscess Is this a current diagnosis for this admission?: Yes Plan: Impression: Patient is 2 days status post exploratory laparotomy, closure of splenic diverticular perforation following incomplete colonoscopy; tolerated extubation; pulmonary function satisfactory; chest x-ray this morning shows no significant infiltrate; leukocytosis concerning. Conditions: 1. We will clamp NG tube; if tolerated, anticipate removal 2. Out of bed to chair. 3. Keep patient in ICU until or ambulatory. 4. We will respect to DO NOT RESUSCITATE request
[2018-12-22] MEDS: LEVOFLOXACIN 500 MG/D5W RTU 500 MG/100 ML RTUPB IV SCH (10:25)
[2018-12-22] MEDS: NICOTINE 21 MG/24 HR PATCH.TD24 TD SCH (10:25)
[2018-12-22] MEDS: FUROSEMIDE INJ/PF 20 MG/2 ML SDV IV SCH (10:25)
[2018-12-22] MEDS: NORMAL SALINE 1000 ML 1,000 ML IV PRN ×2 (10:25→23:01)
[2018-12-22] MEDS: PANTOPRAZOLE SODIUM 40 MG VIAL IV SCH ×2 (10:25→21:18)
[2018-12-22 14:00] LABS: PATH REVIEW PATHOLOGIST REVIEWED
--- NOTE | 2018-12-22 22:32 | PDOC PROGRESS REPORT ---
Subjective Progress Note for:: 12/22/18 Subjective:: Patient is tachypneic and sedated from medications given earlier this morning. Reason For Visit: SYMPTOMATIC ANEMIA Physical Exam Vital Signs: Temp Pulse Resp BP Pulse Ox 98.6 F 100 22 H 123/83 95 12/22/18 08:00 12/22/18 10:00 12/22/18 12:09 12/22/18 11:42 12/22/18 12:09 Intake & Output 12/21/18 12/22/18 12/23/18 06:59 06:59 06:59 Intake Total 7412 1651 Output Total 4010 1410 185 Balance 3402 241 -185 Weight 38.6 kg 41.6 kg General appearance: PRESENT: other - Unresponsive to verbal stimuli. BiPAP in place. Head exam: PRESENT: atraumatic, normocephalic Ear exam: PRESENT: normal external ear exam Respiratory exam: PRESENT: decreased breath sounds - At the left base, rales - Faint rales at the right base, symmetrical, unlabored. ABSENT: rhonchi, tachypnea, wheezes Cardiovascular exam: PRESENT: RRR, +S1, +S2 GI/Abdominal exam: PRESENT: hypoactive bowel sounds, soft, tenderness - Patient winced with palpation of the abdomen, other - Midline abdominal incision. ABSEN T: distended Rectal exam: PRESENT: deferred Gentrourinary exam: PRESENT: indwelling catheter Extremities exam: ABSENT: pedal edema Musculoskeletal exam: PRESENT: other - Decreased muscle mass Neurological exam: ABSENT: awake Results Laboratory Results: 12/22/18 04:13 12/22/18 04:13 12/22/18 12/22/18 12/22/18 04:13 04:13 05:16 WBC 15.1 H RBC 4.09 Hgb 9.4 L Hct 30.2 L MCV 74 L MCH 23.0 L MCHC 31.2 L RDW 29.9 H Plt Count 272 Seg Neutrophils % Not Reportable Lymphocytes % Not Reportable Monocytes % Not Reportable Eosinophils % Not Reportable Basophils % Not Reportable Absolute Neutrophils Not Reportable Absolute Lymphocytes Not Reportable Absolute Monocytes Not Reportable Absolute Eosinophils Not Reportable Absolute Basophils Not Reportable Carbonic Acid 1.05 HCO3/H2CO3 Ratio 17:1 ABG pH 7.34 L ABG pCO2 34.9 L ABG pO2 67.6 L ABG HCO3 18.5 L ABG O2 Saturation 92.7 L ABG Base Excess -6.6 FiO2 30% Sodium 140.8 Potassium 3.8 Chloride 113 H Carbon Dioxide 20 L Anion Gap 8 BUN 14 Creatinine 0.93 Est GFR ( Amer) > 60 Est GFR (Non-Af Amer) 59 L Glucose 97 Calcium 7.5 L Magnesium 2.3 Total Bilirubin 0.4 AST 23 ALT 29 Alkaline Phosphatase 73 Total Protein 5.9 L Albumin 2.8 L 12/17/18 21:35 Troponin I < 0.012 Impressions: Chest X-Ray 12/22/18 06:00 IMPRESSION: Endotracheal tube is been removed. No other significant interval change in the chest. Assessment and Plan - Diagnosis (1) Colon perforation Is this a current diagnosis for this admission?: Yes Plan: 12/20/2018-the patient was being worked up for a GI bleed. She underwent esophagogastroscopy. No evidence of bleeding was noted. She underwent a colonoscopy and was noted to have diverticular disease and suffered a perforation. She was immediately taken to the operating room. Dr. Mclaughlin identified the perforation and closed it surgically. The patient remained intubated and transferred to the intensive care unit. We will continue Unasyn 3 g 4 times a day. 12/21/2018-she is postop day #1. She has been extubated. She is on BiPAP. She is currently tachypneic but this could be due to pain. I have ordered 2 different doses of fentanyl as well as a benzodiazepine for any anxiety. Defer to surgery for incision management. Her nasogastric tube has dark brown liquid. The nurse reports that this is just in the tube and her NG tube output has decreased almost to nonexistent. 12/22/2018-stable from a surgical standpoint. Her drain is been removed. Surgery will monitor the incision. (2) Acute blood loss anemia Is this a current diagnosis for this admission?: Yes Plan: 12/20/2018-on admission the patient's hemoglobin was 6.2. She received 2 units of packed red blood cells. Her hemoglobin today was 9.8. We will continue to monitor her hemoglobin. There is no melena or hematemesis noted. 12/21/2018-the hemoglobin is stable. We will continue to monitor. No evidence of kim bleeding. 12/22/2018-hemoglobin varies but has remained above 9.0. Continue to monitor. No evidence of kim blood loss. (3) Cocaine abuse Is this a current diagnosis for this admission?: Yes Plan: 12/20/2018-patient continues to use cocaine. Now that she is intubated we will need to take this into account regarding sedation and pain medications. Monitor for any evidence of withdrawal. 12/21/2018-continue current regimen of analgesia and antianxiety medications. 12/22/2018-consider rehab/counseling post discharge (4) Hypertension Qualifiers: Hypertension type: essential hypertension Qualified Code(s): I10 - Essential (primary) hypertension Is this a current diagnosis for this admission?: Yes Plan: 12/20/2018-the patient is evidently on chlorthalidone at home. She is on 2.5 mg of lisinopril with as needed hydralazine. We will monitor the patient's blood pressure and adjust medications accordingly. 12/20/2018 critical care I was called to the ICU. The patient's systolic blood pressure had dropped into the 60s. Her urine output has fallen. We gave her 1 L of saline wide open and will start a second liter of saline at 150 mL/h. We will then likely decrease the rate and monitor her blood pressure, intake and output. I have also started on Erik-Synephrine and if fluid resuscitation brings her pressure up we will taper her off of the Erik-Synephrine. 12/21/2018-the patient's blood pressure appears to stabilize. She was tachypneic and tachycardic during this encounter and her blood pressure systolic was in the 90s. We will continue to monitor. I expect when she is more comfortable and less tachycardic that her blood pressure will improve. She was almost 3.5 L net positive fluid balance yesterday. We will continue to monitor urine output. She was transiently on Erik-Synephrine as noted above. Hopefully we can avoid restarting this medication. 12/22/2018-the patient no longer requires pressors. In fact her blood pressure is quite variable and occasionally high. Consider adjustments in medication although with significant variation it may be hard to settle on a single regimen without as needed dosing. (5) Tobacco abuse Is this a current diagnosis for this admission?: Yes Plan: 12/20/2018-apply nicotine patch daily. 12/21/2018-as above 12/22/2018-as above (6) Acute respiratory acidosis Is this a current diagnosis for this admission?: Yes Plan: Critical care The patient's ventilator settings on arrival to the ICU more tidal volume 350 with a rate of 12. A blood gas obtained once the patient was on the ventilator for approximately 1 hour revealed a PCO2 of 7.27 with a PCO2 of 47.5 and a bicarb of 21.5 on an FiO2 40%. I increase the tidal volume to 450 mL an increased her rate to 14. We will obtain a blood gas in approximately 30 to 60 minutes and adjust the ventilator settings if needed. 12/21/2018-pH is back to 7.4 but her PCO2 is still elevated at 66. It is much better than yesterday. She is now extubated. We will recheck a blood gas now that she is on BiPAP. 12/22/2018-the patient still requires BiPAP. We will continue to try and wean from BiPAP as tolerated. PCO2 tends to climb when she has been off of BiPAP for any significant length of time. - Time Time Spent with patient: 25-34 minutes Medications reviewed and adjusted accordingly: Yes Anticipated discharge: SNF
[2018-12-22] MEDS: HYDRALAZINE HCL INJ/PF 20 MG/1 ML SDV IV PRN (23:01)
[2018-12-23] MEDS: HYDRALAZINE HCL INJ/PF 20 MG/1 ML SDV IV PRN ×2 (02:01→09:11)
[2018-12-23] MEDS: FENTANYL CITRATE INJ/PF 100 MCG/2 ML AMPUL IV PRN ×2 (02:24→09:56)
[2018-12-23 04:16] LABS: HEMATOCRIT 30.1 % (36.0-47.0); HEMOGLOBIN 9.4 g/dL (12.0-15.5); MEAN CORPUSCULAR HEMOGLOBIN 22.8 pg (27.0-33.4); MEAN CORPUSCULAR HGB CONC 31.1 g/dL (32.0-36.0); MEAN CORPUSCULAR VOLUME 73 fl (80-97); PLATELET COUNT 245 10^3/uL (150-450); RED CELL DISTRIBUTION WIDTH 29.8 % (11.5-14.0); WHITE BLOOD COUNT 16.1 10^3/uL (4.0-10.5)
[2018-12-23 04:31] LABS: ABSOLUTE LYMPHOCYTES# (MANUAL) 1.6 10^3/uL (0.5-4.7); ABSOLUTE MONOCYTES # (MANUAL) 0.3 10^3/uL (0.1-1.4); ANISOCYTOSIS 4+; BAND NEUTROPHILS % (MANUAL) 4 % (3-5); BASOPHILS % (MANUAL) 0 % (0-2); EOSINOPHILS % (MANUAL) 0 % (0-6); LYMPHOCYTES % (MANUAL) 10 % (13-45); MONOCYTES % (MANUAL) 2 % (3-13); SEGMENTED NEUTROPHILS % (MAN) 84 % (42-78); TOTAL CELLS COUNTED 100
[2018-12-23 04:32] LABS: HYPOCHROMASIA 2+
[2018-12-23 04:33] LABS: PLATELET COMMENT ADEQUATE
[2018-12-23 04:35] LABS: ANION GAP 9 (5-19); BLOOD UREA NITROGEN 12 mg/dL (7-20); CALCIUM 8.2 mg/dL (8.4-10.2); CARBON DIOXIDE 24 mmol/L (22-30); CHLORIDE 108 mmol/L (98-107); GLUCOSE 78 mg/dL (75-110); POTASSIUM 3.2 mmol/L (3.6-5.0)
[2018-12-23 04:35] LABS: ARTERIAL BLOOD BASE EXCESS -3.9 mmol/L; ARTERIAL BLOOD FIO2 50%; ARTERIAL BLOOD H2CO3 1.03 mmol/L (1.05-1.35); ARTERIAL BLOOD HCO3 20.4 mmol/L (20-24); ARTERIAL BLOOD O2 SATURATION 97.1 % (94-98); ARTERIAL BLOOD PCO2 34.3 mmHg (35-45); ARTERIAL BLOOD PH 7.39 (7.35-7.45); ARTERIAL BLOOD TOTAL CO2 21.5 mmol/L (21-25)
[2018-12-23] MEDS: AMPICILLIN SODIUM/SULBACTAM NA 3 GM in NORMAL SALINE 100 ML IV SCH (05:46)
--- NOTE | 2018-12-23 08:14 | RADIOLOGY REPORT (SQ) ---
EXAM DESCRIPTION: CHEST SINGLE VIEW COMPLETED DATE/TIME: 12/23/2018 6:24 am REASON FOR STUDY: pna/effusion COMPARISON: 12/22/2018 NUMBER OF VIEWS: One view. TECHNIQUE: Single frontal radiographic image of the chest acquired. LIMITATIONS: None. FINDINGS: LUNGS AND PLEURA: Stable appearance. MEDIASTINUM AND HILAR STRUCTURES: Stable heart size and mediastinal structures. HEART AND VASCULAR STRUCTURES: Stable appearance. SUPPORT DEVICES: Appropriate location without change. BONES: No acute findings. OTHER: No other significant finding. IMPRESSION: STABLE APPEARANCE OF THE CHEST. SUPPORT DEVICES UNCHANGED. TECHNICAL DOCUMENTATION: JOB ID: [id number] [employer]- All Rights Reserved Reading location - IP/workstation name: [email or web address]
[2018-12-23] MEDS: NORMAL SALINE 1000 ML 1,000 ML IV PRN ×2 (08:53→23:43)
[2018-12-23] MEDS: LEVOFLOXACIN 500 MG/D5W RTU 500 MG/100 ML RTUPB IV SCH (09:10)
[2018-12-23] MEDS: FUROSEMIDE INJ/PF 20 MG/2 ML SDV IV SCH (09:10)
[2018-12-23] MEDS: PANTOPRAZOLE SODIUM 40 MG VIAL IV SCH ×2 (09:11→21:23)
[2018-12-23] MEDS: NICOTINE 21 MG/24 HR PATCH.TD24 TD SCH (09:13)
[2018-12-23] MEDS ORDERED: DIGOXIN INJ 0.5 MG/2 ML AMPULE IV ONE (10:01)
[2018-12-23] MEDS ORDERED: METRONIDAZOLE 500 MG/NS RTU 500 MG/100 ML RTUPB IV ONE (10:12)
[2018-12-23] MEDS: POTASSI CL 20 MEQ/50 ML RIDER 20 MEQ/50 ML RTUPB IV SCH ×2 (10:19→11:50)
[2018-12-23 10:46] LABS: HEMATOCRIT 31.1 % (36.0-47.0); HEMOGLOBIN 9.6 g/dL (12.0-15.5); MEAN CORPUSCULAR HEMOGLOBIN 22.8 pg (27.0-33.4); MEAN CORPUSCULAR VOLUME 74 fl (80-97); PLATELET COUNT 254 10^3/uL (150-450); RED BLOOD COUNT 4.22 10^6/uL (3.72-5.28); RED CELL DISTRIBUTION WIDTH 29.9 % (11.5-14.0); WHITE BLOOD COUNT 16.1 10^3/uL (4.0-10.5)
[2018-12-23] MEDS ORDERED: DEXTROSE 5%-WATER 500 ML with AMIODARONE HCL 900 MG IV PRN ×2 (10:53)
[2018-12-23] MEDS ORDERED: AMIODARONE HCL 150 MG in DEXTROSE 5%-WATER 100 ML IV ONE (10:53)
[2018-12-23 11:16] LABS: ABSOLUTE LYMPHOCYTES# (MANUAL) 1.3 10^3/uL (0.5-4.7); ABSOLUTE MONOCYTES # (MANUAL) 0.2 10^3/uL (0.1-1.4); BASOPHILS % (MANUAL) 0 % (0-2); EOSINOPHILS % (MANUAL) 0 % (0-6); LYMPHOCYTES % (MANUAL) 8 % (13-45); MONOCYTES % (MANUAL) 1 % (3-13); SEGMENTED NEUTROPHILS % (MAN) 91 % (42-78); TOTAL CELLS COUNTED 100
[2018-12-23 11:18] LABS: ANISOCYTOSIS 4+; HYPOCHROMASIA 1+; PLATELET COMMENT ADEQUATE; SCHISTOCYTES 1+; TARGET CELLS 2+
[2018-12-23] MEDS ORDERED: AMIODARONE HCL INJ 150 MG/3 ML VIAL IV ONE (11:34)
[2018-12-23] MEDS: METRONIDAZOLE 500 MG/NS RTU 500 MG/100 ML RTUPB IV SCH ×3 (11:41→23:43)
[2018-12-23] MEDS: LORAZEPAM INJ 2 MG/1 ML VIAL IV PRN (11:43)
[2018-12-23] MEDS ORDERED: NORMAL SALINE 10 ML SDV (AFTER EACH USE) IV PRN (12:00)
--- NOTE | 2018-12-23 12:49 | RADIOLOGY REPORT (SQ) ---
EXAM DESCRIPTION: CHEST SINGLE VIEW COMPLETED DATE/TIME: 12/23/2018 11:43 am REASON FOR STUDY: IV ACCESS COMPARISON: 12/23/2018 NUMBER OF VIEWS: One view. TECHNIQUE: Single frontal radiographic image of the chest acquired. LIMITATIONS: None. FINDINGS: LUNGS AND PLEURA: Stable appearance. MEDIASTINUM AND HILAR STRUCTURES: Stable heart size and mediastinal structures. HEART AND VASCULAR STRUCTURES: Stable appearance. SUPPORT DEVICES: PICC line has been placed via left upper extremity. Catheter tip overlies the SVC. NG tube remains in place. BONES: No acute findings. OTHER: No other significant finding. IMPRESSION: Interval placement of left-sided PICC line. No other interval change. TECHNICAL DOCUMENTATION: JOB ID: [id number] [employer]- All Rights Reserved Reading location - IP/workstation name: [email or web address]
--- NOTE | 2018-12-23 12:59 | RADIOLOGY REPORT (SQ) ---
EXAM DESCRIPTION: PICC INSERTION; U/S GUIDE FOR VASCULAR ACCESS COMPLETED DATE/TIME: 12/23/2018 11:38 am REASON FOR STUDY: IV access; IV ACCESS COMPARISON: None. FLUOROSCOPY TIME: None. 2 images saved to PACS. TECHNIQUE: Fluoroscopic and ultrasound guided PICC placement. LIMITATIONS: None. PROCEDURE: After written consent and assessment were obtained, the patient was brought into the fluo roscopy room and placed supine on the table. Ultrasound evaluation of potential access sites were per formed. After successfully identifying a patent left basilic vein, the left arm was prepped and drape d in a sterile fashion along with the ultrasound probe. The entry site was anesthetized with 1% lidoc lemuel. A 21 gauge 7 cm needle was advanced through the skin and into the basilic vein under live ultra sound guidance. An ultrasound image was saved to PACS confirming access site. A .018 guide wire was then inserted through the needle and into the venous system. The needle was then removed and an 11 b lade scalpel was used to make a 1cm skin incision. A 5 fr peel-away sheath was advanced over the wir e and into the venous system. A measurement was then made using the existing wire and live fluoroscop ic guidance. The wire was then removed and trimmed. The PICC was advanced through the peel-away sheat h and into the venous system. The peel-away sheath was removed and the catheter was adhered to the pa tients arm with a stat lock. The catheter was then aspirated and flushed and a sterile bandage was pl aced over the access site. A fluoroscopic spot image was saved to PACS confirming the catheter tip w ithin the superior vena cava. IMPRESSION: SUCCESSFUL PLACEMENT OF A 5 FR DUAL LUMEN 33 CM PICC IN THE LEFT BASILIC VEIN. COMMENT: Patient medication list reviewed: Yes- Quality ID# 130:Eligible professional attests to doc umenting in the medical record they obtained, updated, or reviewed the patient's current medications. . Quality ID 145: Final reports for procedures using fluoroscopy that document radiation exposure david keith, or exposure time and number of fluorographic images (if radiation exposure indices are not avail able) Quality ID #76: The patient was prepped and draped using maximum sterile barrier technique including cap, mask, sterile gown, sterile gloves, a large sterile sheet, hand hygiene, and 2% Chlorhexidine fo r cutaneous antisepsis. When ultrasound is used, sterile ultrasound techniques are followed requiring sterile gel and sterile probes. TECHNICAL DOCUMENTATION: JOB ID: [id number] [employer] All Rights Reserved rev-10/18 Reading location - IP/workstation name: [email or web address]
--- NOTE | 2018-12-23 13:38 | EKG REPORT ---
SEVERITY:- ABNORMAL ECG - ATRIAL FIBRILLATION WITH RVR LOW VOLTAGE IN FRONTAL LEADS REPOLARIZATION ABNORMALITY, PROB RATE RELATED : Confirmed by: Erendira Dorado 23-Dec-2018 13:36:58
[2018-12-23] MEDS: IPRATROPIUM/ALBUTEROL 0.5-2.5 MG/3 ML AMPUL NEB PRN (14:13)
[2018-12-23] MEDS ORDERED: METRONIDAZOLE 500 MG/NS RTU 500 MG/100 ML RTUPB IV SCH (15:00)
--- NOTE | 2018-12-23 16:51 | PDOC PROGRESS REPORT ---
Subjective Progress Note for:: 12/23/18 Subjective:: No adverse events overnight. Patient has apparently been BiPAP dependent since she was extubated. It is noted that she has a long history of smoking and of crack cocaine use. This morning she got tachycardic and hypotensive. Blood pressure responded to some IV fluids. We replaced her potassium and gave her a dose of digoxin, which did nothing for her. EKG showed atrial fibrillation with RVR. Because of her blood pressure, we decided to put her on amiodarone drip, which has brought her heart rate down into a more acceptable range. Hemoglobin was unchanged. Antibiotic coverage was increased with Flagyl to cover anaerobes. Lactate and troponins were normal. CTA of the chest is pending. Reason For Visit: SYMPTOMATIC ANEMIA Physical Exam Vital Signs: Temp Pulse Resp BP Pulse Ox 97.5 F 99 24 H 121/79 98 12/23/18 14:00 12/23/18 14:13 12/23/18 16:09 12/23/18 16:09 12/23/18 16:14 Intake & Output 12/22/18 12/23/18 12/24/18 06:59 06:59 06:59 Intake Total 1651 1500 1038 Output Total 1410 2535 2115 Balance 241 -4737 -1071 Weight 41.6 kg 41.3 kg General appearance: PRESENT: disheveled, mild distress, thin Teeth exam: PRESENT: poor dentation Respiratory exam: PRESENT: decreased breath sounds, symmetrical, tachypnea. ABSENT: accessory muscle use, crackles, prolonged expiratory phas, rhonchi, wheezes Cardiovascular exam: PRESENT: irregular rhythm Pulses: PRESENT: normal carotid pulses Vascular exam: PRESENT: normal capillary refill GI/Abdominal exam: PRESENT: normal bowel sounds, soft, tenderness - Mild and appropriate, other - Surgical incision is clean, not erythematous, and without oozing. ABSENT: distended, guarding, rebound Extremities exam: ABSENT: clubbing Musculoskeletal exam: PRESENT: normal inspection. ABSENT: deformity Neurological exam: PRESENT: awake, oriented to person Psychiatric exam: PRESENT: agitated Skin exam: PRESENT: dry, warm Results Laboratory Results: 12/23/18 10:33 12/23/18 03:48 12/23/18 12/23/18 12/23/18 03:48 03:48 04:16 WBC 16.1 H RBC 4.10 Hgb 9.4 L Hct 30.1 L MCV 73 L MCH 22.8 L MCHC 31.1 L RDW 29.8 H Plt Count 245 Seg Neutrophils % Not Reportable Lymphocytes % Not Reportable Monocytes % Not Reportable Eosinophils % Not Reportable Basophils % Not Reportable Absolute Neutrophils Not Reportable Absolute Lymphocytes Not Reportable Absolute Monocytes Not Reportable Absolute Eosinophils Not Reportable Absolute Basophils Not Reportable Carbonic Acid 1.03 L HCO3/H2CO3 Ratio 19:1 ABG pH 7.39 ABG pCO2 34.3 L ABG pO2 93.0 ABG HCO3 20.4 ABG O2 Saturation 97.1 ABG Base Excess -3.9 FiO2 50% Sodium 140.5 Potassium 3.2 L Chloride 108 H Carbon Dioxide 24 Anion Gap 9 BUN 12 Creatinine 0.81 Est GFR ( Amer) > 60 Est GFR (Non-Af Amer) > 60 Glucose 78 Lactic Acid Calcium 8.2 L Magnesium 1.6 12/23/18 12/23/18 10:33 10:33 WBC 16.1 H RBC 4.22 Hgb 9.6 L Hct 31.1 L MCV 74 L MCH 22.8 L MCHC 31.0 L RDW 29.9 H Plt Count 254 Seg Neutrophils % Not Reportable Lymphocytes % Not Reportable Monocytes % Not Reportable Eosinophils % Not Reportable Basophils % Not Reportable Absolute Neutrophils Not Reportable Absolute Lymphocytes Not Reportable Absolute Monocytes Not Reportable Absolute Eosinophils Not Reportable Absolute Basophils Not Reportable Carbonic Acid HCO3/H2CO3 Ratio ABG pH ABG pCO2 ABG pO2 ABG HCO3 ABG O2 Saturation ABG Base Excess FiO2 Sodium Potassium Chloride Carbon Dioxide Anion Gap BUN Creatinine Est GFR ( Amer) Est GFR (Non-Af Amer) Glucose Lactic Acid 1.0 Calcium Magnesium 12/17/18 12/23/18 21:35 10:33 Troponin I < 0.012 < 0.012 Impressions: Interventional Vascular Procedure 12/23/18 00:00 IMPRESSION: SUCCESSFUL PLACEMENT OF A 5 FR DUAL LUMEN 33 CM PICC IN THE LEFT BASILIC VEIN. PICC Line Insertion 12/23/18 00:00 IMPRESSION: SUCCESSFUL PLACEMENT OF A 5 FR DUAL LUMEN 33 CM PICC IN THE LEFT BASILIC VEIN. Chest X-Ray 12/23/18 06:00 IMPRESSION: STABLE APPEARANCE OF THE CHEST. SUPPORT DEVICES UNCHANGED. Assessment and Plan - Diagnosis (1) Acute respiratory acidosis Is this a current diagnosis for this admission?: Yes Plan: Currently doing okay on BiPAP, but she does not do well wants the BiPAP is removed. We will continue support and will wean as tolerated. (2) Atrial fibrillation with RVR Is this a current diagnosis for this admission?: Yes Plan: Improved on amiodarone drip. If her blood pressure improves, we will likely switch her over to Cardizem. CT of the chest is pending to rule out PE as a source of her sudden onset tachycardia and tachypnea. (3) Acute blood loss anemia Is this a current diagnosis for this admission?: Yes Plan: Resolved. Hemoglobin has been stable the last several times it has been checked. Suspected to be due to GI bleeding. (4) Cocaine abuse Is this a current diagnosis for this admission?: Yes Plan: Her family moved her down here from [place] and attempt to get her away from her network of Associates in the hopes that she would quit smoking crack. We will offer her counseling services at discharge. (5) Colon perforation Is this a current diagnosis for this admission?: Yes Plan: She came in with some anemia, and through a series of events it seems she had a colon perforation. That has been treated surgically. Incision looks good and her hemoglobin is stable. Because of her condition today, I increased her Levaquin dose and added Flagyl for anaerobic coverage. - Time Time Spent with patient: 35 or more minutes
--- NOTE | 2018-12-23 17:02 | RADIOLOGY REPORT (SQ) ---
EXAM DESCRIPTION: CTA CHEST COMPLETED DATE/TIME: 12/23/2018 2:55 pm REASON FOR STUDY: tachycardia, tachypnea, eval for PE COMPARISON: None. TECHNIQUE: CT scan of the chest performed using helical scanning technique with dynamic intravenous contrast injection. Images reviewed with lung, soft tissue and bone windows. Reconstructed coronal and sagittal MPR images reviewed. Additional 3 dimensional post-processing performed to develop Maximal Intensity Projection images ([place] P). All images stored on PACS. All CT scanners at this facility use dose modulation, iterative reconstruction, and/or weight based d osing when appropriate to reduce radiation dose to as low as reasonably achievable (ALARA). [facility]: Dose Right [facility]: CareDose [facility]: Dose Right [facility]: Teradose 4D [facility]: [employer] CONTRAST TYPE AND DOSE: contrast/concentration: Isovue 350.00 mg/ml; Total Contrast Delivered: 52.0 ml; Total Saline Delivered: 80.0 ml Contrast bolus adequate for pulmonary arteries and aorta. RENAL FUNCTION: BUN 12 creatinine 0.81 RADIATION DOSE: CT Rad equipment meets quality standard of care and radiation dose reduction techniq ues were employed. CTDIvol: 5.8 - 8.4 mGy. DLP: 219 mGy-cm. . LIMITATIONS: None. FINDINGS: LUNGS AND PLEURA: Moderate left pleural effusion. Smaller right pleural effusion. Atelec tatic changes in the left lower lobe with mild right lower lobe atelectasis. AORTA AND GREAT VESSELS: No aneurysm. No dissection. HEART: No pericardial effusion. Moderate to marked coronary artery calcifications. PULMONARY ARTERIES: There emboli in the right upper lobe pulmonary arteries. There is very limited t hrombus in lingular artery on the left. HILAR AND MEDIASTINAL STRUCTURES: No identified masses or abnormal nodes. HARDWARE: None in the chest. UPPER ABDOMEN: 32 mm aneurysm of the abdominal aorta. THYROID AND OTHER SOFT TISSUES: No masses. No adenopathy. BONES: Mild compression changes in the mid to lower thoracic spine. 3D MIPS: Confirm above findings. OTHER: No other significant finding. IMPRESSION: Bilateral pulmonary emboli, right more than left. Low clot burden. Moderate left pleur al effusion with smaller right pleural effusion. Associated atelectasis. Abdominal aortic aneurysm. COMMENT: Quality ID # [id number]: Final reports with documentation of one or more dose reduction techniques (e.g., Automated exposure control, adjustment of the mA and/or kV according to patient size, use of iterative reconstruction technique) TECHNICAL DOCUMENTATION: JOB ID: [id number] [employer] All Rights Reserved Reading location - IP/workstation name: [email or web address]
--- NOTE | 2018-12-23 18:42 | PDOC PROGRESS REPORT ---
Subjective Progress Note for:: 12/23/18 Subjective:: still on bipap. Claims no pains but also no flatus yet. Reason For Visit: SYMPTOMATIC ANEMIA Physical Exam Vital Signs: Temp Pulse Resp BP Pulse Ox 97.7 F 94 24 H 121/79 98 12/23/18 16:00 12/23/18 16:00 12/23/18 16:09 12/23/18 16:09 12/23/18 16:14 Intake & Output 12/22/18 12/23/18 12/24/18 06:59 06:59 06:59 Intake Total 1651 1500 1138 Output Total 1410 1125 2266 Balance 473 -2261 -8711 Weight 41.6 kg 41.3 kg Exam: NGT placed back on suction but only drained about 50 ccs.Will D/C but keep NPO Abdomen mild distention but no tenderness. Incision dressing is dry Results Laboratory Results: 12/23/18 10:33 12/23/18 03:48 12/23/18 12/23/18 12/23/18 03:48 03:48 04:16 WBC 16.1 H RBC 4.10 Hgb 9.4 L Hct 30.1 L MCV 73 L MCH 22.8 L MCHC 31.1 L RDW 29.8 H Plt Count 245 Seg Neutrophils % Not Reportable Lymphocytes % Not Reportable Monocytes % Not Reportable Eosinophils % Not Reportable Basophils % Not Reportable Absolute Neutrophils Not Reportable Absolute Lymphocytes Not Reportable Absolute Monocytes Not Reportable Absolute Eosinophils Not Reportable Absolute Basophils Not Reportable Carbonic Acid 1.03 L HCO3/H2CO3 Ratio 19:1 ABG pH 7.39 ABG pCO2 34.3 L ABG pO2 93.0 ABG HCO3 20.4 ABG O2 Saturation 97.1 ABG Base Excess -3.9 FiO2 50% Sodium 140.5 Potassium 3.2 L Chloride 108 H Carbon Dioxide 24 Anion Gap 9 BUN 12 Creatinine 0.81 Est GFR ( Amer) > 60 Est GFR (Non-Af Amer) > 60 Glucose 78 Lactic Acid Calcium 8.2 L Magnesium 1.6 12/23/18 12/23/18 10:33 10:33 WBC 16.1 H RBC 4.22 Hgb 9.6 L Hct 31.1 L MCV 74 L MCH 22.8 L MCHC 31.0 L RDW 29.9 H Plt Count 254 Seg Neutrophils % Not Reportable Lymphocytes % Not Reportable Monocytes % Not Reportable Eosinophils % Not Reportable Basophils % Not Reportable Absolute Neutrophils Not Reportable Absolute Lymphocytes Not Reportable Absolute Monocytes Not Reportable Absolute Eosinophils Not Reportable Absolute Basophils Not Reportable Carbonic Acid HCO3/H2CO3 Ratio ABG pH ABG pCO2 ABG pO2 ABG HCO3 ABG O2 Saturation ABG Base Excess FiO2 Sodium Potassium Chloride Carbon Dioxide Anion Gap BUN Creatinine Est GFR ( Amer) Est GFR (Non-Af Amer) Glucose Lactic Acid 1.0 Calcium Magnesium 12/17/18 12/23/18 21:35 10:33 Troponin I < 0.012 < 0.012 Impressions: Chest/Abdomen CTA 12/23/18 00:00 IMPRESSION: Bilateral pulmonary emboli, right more than left. Low clot burden. Moderate left pleural effusion with smaller right pleural effusion. Associated atelectasis. Abdominal aortic aneurysm. Interventional Vascular Procedure 12/23/18 00:00 IMPRESSION: SUCCESSFUL PLACEMENT OF A 5 FR DUAL LUMEN 33 CM PICC IN THE LEFT B ASILIC VEIN. PICC Line Insertion 12/23/18 00:00 IMPRESSION: SUCCESSFUL PLACEMENT OF A 5 FR DUAL LUMEN 33 CM PICC IN THE LEFT BASILIC VEIN. Chest X-Ray 12/23/18 06:00 IMPRESSION: STABLE APPEARANCE OF THE CHEST. SUPPORT DEVICES UNCHANGED. Assessment & Plan - Diagnosis (1) Acute blood loss anemia Is this a current diagnosis for this admission?: Yes (2) Cocaine abuse Is this a current diagnosis for this admission?: Yes (3) GI bleeding Qualifiers: GI bleed type/associated pathology: unspecified gastrointestinal hemorrhage type Qualified Code(s): K92.2 - Gastrointestinal hemorrhage, unspecified Is this a current diagnosis for this admission?: Yes (4) Colon perforation Is this a current diagnosis for this admission?: Yes - Time Time Spent with patient: 15-24 minutes - Inpatient Certification Medical Necessity: Need Close Monitoring Due to Risk of Patient Decompensation, Need For IV Fluids, Risk of Complication if Not Cared For in Hospital - Plan Summary Plan Summary: Keep NPO Start clears when passed flatus OK to continue IV antibiotics
[2018-12-23] MEDS: NORMAL SALINE 10 ML SDV (SCHEDULED) IV SCH (21:23)
[2018-12-24] MEDS: HYDRALAZINE HCL INJ/PF 20 MG/1 ML SDV IV PRN (02:31)
[2018-12-24 04:57] LABS: ABSOLUTE LYMPHOCYTES (AUTO) 3.2 10^3/uL (0.5-4.7); ABSOLUTE MONOCYTES (AUTO) 0.5 10^3/uL (0.1-1.4); BASOPHILS % (AUTO) 0.3 % (0-2); EOSINOPHILS % (AUTO) 0.4 % (0-6); HEMATOCRIT 28.4 % (36.0-47.0); HEMOGLOBIN 8.9 g/dL (12.0-15.5); LYMPHOCYTES % (AUTO) 23.3 % (13-45); MEAN CORPUSCULAR HEMOGLOBIN 22.8 pg (27.0-33.4); MEAN CORPUSCULAR HGB CONC 31.1 g/dL (32.0-36.0); MEAN CORPUSCULAR VOLUME 73 fl (80-97); MONOCYTES % (AUTO) 3.8 % (3-13); PLATELET COUNT 261 10^3/uL (150-450); RED BLOOD COUNT 3.89 10^6/uL (3.72-5.28); RED CELL DISTRIBUTION WIDTH 30.7 % (11.5-14.0); SEGMENTED NEUTROPHILS % (AUTO) 72.2 % (42-78); TOTAL CELLS COUNTED % (AUTO) 100 %; WHITE BLOOD COUNT 13.8 10^3/uL (4.0-10.5)
[2018-12-24 05:10] LABS: ARTERIAL BLOOD BASE EXCESS -4.3 mmol/L; ARTERIAL BLOOD FIO2 5L; ARTERIAL BLOOD H2CO3 1.07 mmol/L (1.05-1.35); ARTERIAL BLOOD HCO3 20.3 mmol/L (20-24); ARTERIAL BLOOD O2 SATURATION 88.7 % (94-98); ARTERIAL BLOOD PCO2 35.4 mmHg (35-45); ARTERIAL BLOOD PH 7.38 (7.35-7.45); ARTERIAL BLOOD PO2 55.7 mmHg (80-100); ARTERIAL BLOOD TOTAL CO2 21.4 mmol/L (21-25)
[2018-12-24] MEDS: METRONIDAZOLE 500 MG/NS RTU 500 MG/100 ML RTUPB IV SCH ×3 (05:19→18:26)
[2018-12-24 05:21] LABS: ANISOCYTOSIS 4+; HYPOCHROMASIA 3+; PLATELET COMMENT ADEQUATE; POIKILOCYTOSIS 1+; TARGET CELLS 1+
[2018-12-24 05:23] LABS: ANION GAP 11 (5-19); BLOOD UREA NITROGEN 10 mg/dL (7-20); CALCIUM 8.1 mg/dL (8.4-10.2); CARBON DIOXIDE 21 mmol/L (22-30); CHLORIDE 107 mmol/L (98-107); GLUCOSE 101 mg/dL (75-110); POTASSIUM 3.2 mmol/L (3.6-5.0)
[2018-12-24] MEDS: FUROSEMIDE INJ/PF 20 MG/2 ML SDV IV SCH (10:43)
[2018-12-24] MEDS: LEVOFLOXACIN 750 MG/D5W RTU 750 MG/150 ML RTUPB IV SCH (10:43)
[2018-12-24] MEDS: MAGNESIUM SULFATE/D5W 1 GM/100 ML RTUPB IV SCH ×3 (10:43→13:02)
[2018-12-24] MEDS: NICOTINE 21 MG/24 HR PATCH.TD24 TD SCH (10:44)
[2018-12-24] MEDS: NORMAL SALINE 10 ML SDV (SCHEDULED) IV SCH ×2 (10:44→21:04)
[2018-12-24] MEDS: PANTOPRAZOLE SODIUM 40 MG VIAL IV SCH ×2 (10:45→21:00)
[2018-12-24] MEDS: DILTIAZEM HCL/D5W 125 MG/125 ML RTUINJ IV PRN (10:52)
[2018-12-24] MEDS: POTASSI CL 20 MEQ/50 ML RIDER 20 MEQ/50 ML RTUPB IV SCH ×2 (14:07→16:30)
[2018-12-24] MEDS: IPRATROPIUM/ALBUTEROL 0.5-2.5 MG/3 ML AMPUL NEB PRN (16:38)
--- NOTE | 2018-12-24 16:44 | PDOC PROGRESS REPORT ---
Subjective Progress Note for:: 12/24/18 Subjective:: No adverse events overnight. Vital signs been relatively stable. She is been a little bit more tachypneic today. Her diet has been advanced to clear liquids. Blood pressures have been good. Reason For Visit: SYMPTOMATIC ANEMIA Physical Exam Vital Signs: Temp Pulse Resp BP Pulse Ox 98.8 F 101 H 32 H 131/73 H 94 12/24/18 12:00 12/24/18 14:33 12/24/18 14:33 12/24/18 14:00 12/24/18 16:07 Intake & Output 12/23/18 12/24/18 12/25/18 06:59 06:59 06:59 Intake Total 1500 2638 529 Output Total 2530 3180 1500 Balance -1035 -542 -971 Weight 41.3 kg 40.3 kg General appearance: PRESENT: disheveled, mild distress, thin Teeth exam: PRESENT: poor dentation Respiratory exam: PRESENT: decreased breath sounds, symmetrical, tachypnea. ABSENT: accessory muscle use, crackles, prolonged expiratory phas, rhonchi, wheezes Cardiovascular exam: PRESENT: irregular rhythm Pulses: PRESENT: normal carotid pulses Vascular exam: PRESENT: normal capillary refill GI/Abdominal exam: PRESENT: normal bowel sounds, soft, tenderness - Mild and appropriate, other - Surgical incision is clean, not erythematous, and without oozing. ABSENT: distended, guarding, rebound Extremities exam: ABSENT: clubbing Musculoskeletal exam: PRESENT: normal inspection. ABSENT: deformity Neurological exam: PRESENT: awake, oriented to person, place, and situation Psychiatric exam: PRESENT: agitated Skin exam: PRESENT: dry, warm Results Laboratory Results: 12/24/18 04:43 12/24/18 04:43 12/24/18 12/24/18 12/24/18 04:43 04:43 04:43 WBC 13.8 H RBC 3.89 Hgb 8.9 L Hct 28.4 L MCV 73 L MCH 22.8 L MCHC 31.1 L RDW 30.7 H Plt Count 261 Seg Neutrophils % 72.2 Lymphocytes % 23.3 Monocytes % 3.8 Eosinophils % 0.4 Basophils % 0.3 Absolute Neutrophils 10.0 H Absolute Lymphocytes 3.2 Absolute Monocytes 0.5 Absolute Eosinophils 0.0 Absolute Basophils 0.0 Carbonic Acid 1.07 HCO3/H2CO3 Ratio 18:1 ABG pH 7.38 ABG pCO2 35.4 ABG pO2 55.7 L ABG HCO3 20.3 ABG O2 Saturation 88.7 L ABG Base Excess -4.3 FiO2 5L Sodium 139.3 Potassium 3.2 L Chloride 107 Carbon Dioxide 21 L Anion Gap 11 BUN 10 Creatinine 0.71 Est GFR ( Amer) > 60 Est GFR (Non-Af Amer) > 60 Glucose 101 Calcium 8.1 L Magnesium 1.3 L 12/17/18 12/23/18 21:35 10:33 Troponin I < 0.012 < 0.012 Impressions: Chest/Abdomen CTA 12/23/18 00:00 IMPRESSION: Bilateral pulmonary emboli, right more than left. Low clot burden. Moderate left pleural effusion with smaller right pleural effusion. Associated atelectasis. Abdominal aortic aneurysm. Interventional Vascular Procedure 12/23/18 00:00 IMPRESSION: SUCCESSFUL PLACEMENT OF A 5 FR DUAL LUMEN 33 CM PICC IN THE LEFT BASILIC VEIN. PICC Line Insertion 12/23/18 00:00 IMPRESSION: SUCCESSFUL PLACEMENT OF A 5 FR DUAL LUMEN 33 CM PICC IN THE LEFT BASILIC VEIN. Chest X-Ray 12/23/18 06:00 IMPRESSION: STABLE APPEARANCE OF THE CHEST. SUPPORT DEVICES UNCHANGED. Assessment and Plan - Diagnosis (1) Acute respiratory acidosis Is this a current diagnosis for this admission?: Yes Plan: Resolved. Currently on nasal cannula, but is getting more tachypneic. She does not want to go back on BiPAP, she does not want to go back on the ventilator, and she does not want to be resuscitated. She is trying to refuse nebulizer treatments. We will monitor her closely and see if we can do some conservative therapy to try to decrease her work of breathing. Again is noted her long history of smoking as well as crack cocaine use. She has evidence of lung scarring on her chest x-ray. (2) Atrial fibrillation with RVR Is this a current diagnosis for this admission?: Yes Plan: We have been able to transition her off of the amiodarone drip and onto a Cardizem drip. Once we get the correct dose that controls her heart rate, we will try to transition her over to an oral formulation. (3) Acute blood loss anemia Is this a current diagnosis for this admission?: Yes Plan: Resolved. Hemoglobin has been stable the last several times it has been checked. Suspected to be due to GI bleeding. (4) Cocaine abuse Is this a current diagnosis for this admission?: Yes Plan: Her family moved her down here from [place] and attempt to get her away from her network of Associates in the hopes that she would quit smoking crack. We will offer her counseling services at discharge. (5) Colon perforation Is this a current diagnosis for this admission?: Yes Plan: She came in with some anemia, and through a series of events it seems she had a colon perforation. That has been treated surgically. Incision looks good and her hemoglobin is stable. I increased her Levaquin dose and added Flagyl for anaerobic coverage. Diet has been advanced by surgery. (6) Bilateral pulmonary embolism Is this a current diagnosis for this admission?: Yes Plan: She had a recent diagnosis of this a couple of months ago and had been on Eliquis. We had to stop it because of her bleeding. We will talk to surgery about reintroducing this because of her current trouble breathing. - Time Time Spent with patient: 35 or more minutes
[2018-12-24] MEDS: ENOXAPARIN SODIUM INJ 40 MG/0.4 ML DISP.SYRIN SUBCUT SCH (18:24)
[2018-12-24] MEDS: LEVALBUTEROL HCL NEB 1.25 MG/3 ML AMPUL NEB SCH ×2 (19:04→19:49)
--- NOTE | 2018-12-24 19:42 | PDOC PROGRESS REPORT ---
Subjective Progress Note for:: 12/24/18 Reason For Visit: SYMPTOMATIC ANEMIA Physical Exam Vital Signs: Temp Pulse Resp BP Pulse Ox 97.9 F 104 H 25 H 134/80 H 91 L 12/24/18 16:00 12/24/18 18:00 12/24/18 18:25 12/24/18 18:25 12/24/18 18:25 Intake & Output 12/23/18 12/24/18 12/25/18 06:59 06:59 06:59 Intake Total 1500 2638 629 Output Total 2530 1070 1900 Balance -9969 -129 -5877 Weight 41.3 kg 40.3 kg Results Laboratory Results: 12/24/18 04:43 12/24/18 04:43 12/24/18 12/24/18 12/24/18 04:43 04:43 04:43 WBC 13.8 H RBC 3.89 Hgb 8.9 L Hct 28.4 L MCV 73 L MCH 22.8 L MCHC 31.1 L RDW 30.7 H Plt Count 261 Seg Neutrophils % 72.2 Lymphocytes % 23.3 Monocytes % 3.8 Eosinophils % 0.4 Basophils % 0.3 Absolute Neutrophils 10.0 H Absolute Lymphocytes 3.2 Absolute Monocytes 0.5 Absolute Eosinophils 0.0 Absolute Basophils 0.0 Carbonic Acid 1.07 HCO3/H2CO3 Ratio 18:1 ABG pH 7.38 ABG pCO2 35.4 ABG pO2 55.7 L ABG HCO3 20.3 ABG O2 Saturation 88.7 L ABG Base Excess -4.3 FiO2 5L Sodium 139.3 Potassium 3.2 L Chloride 107 Carbon Dioxide 21 L Anion Gap 11 BUN 10 Creatinine 0.71 Est GFR ( Amer) > 60 Est GFR (Non-Af Amer) > 60 Glucose 101 Calcium 8.1 L Magnesium 1.3 L 12/17/18 12/23/18 21:35 10:33 Troponin I < 0.012 < 0.012 Impressions: Chest/Abdomen CTA 12/23/18 00:00 IMPRESSION: Bilateral pulmonary emboli, right more than left. Low clot burden. Moderate left pleural effusion with smaller right pleural effusion. Associated atelectasis. Abdominal aortic aneurysm. Interventional Vascular Procedure 12/23/18 00:00 IMPRESSION: SUCCESSFUL PLACEMENT OF A 5 FR DUAL LUMEN 33 CM PICC IN THE LEFT BASILIC VEIN. PICC Line Insertion 12/23/18 00:00 IMPRESSION: SUCCESSFUL PLACEMENT OF A 5 FR DUAL LUMEN 33 CM PICC IN THE LEFT BASILIC VEIN. Chest X-Ray 12/23/18 06:00 IMPRESSION: STABLE APPEARANCE OF THE CHEST. SUPPORT DEVICES UNCHANGED. Assessment & Plan - Diagnosis (1) Colon perforation Is this a current diagnosis for this admission?: Yes - Plan Summary Plan Summary: This is a 73-year-old female with a perforation after colonoscopy. She is status post exploratory laparotomy with repair of the perforation. The patient remains slightly distended today. She denies any flatus. She also denies nausea or vomiting. She was started on clear liquids today, and appears to be tolerating them relatively well. Continue clear liquids for now. DVT prophylaxis. We will continue to follow closely with you.
[2018-12-24] MEDS: NORMAL SALINE 1000 ML 1,000 ML IV PRN (22:07)
[2018-12-25] MEDS: LEVALBUTEROL HCL NEB 1.25 MG/3 ML AMPUL NEB SCH ×6 (00:06→19:40)
[2018-12-25] MEDS: METRONIDAZOLE 500 MG/NS RTU 500 MG/100 ML RTUPB IV SCH ×5 (00:11→23:20)
[2018-12-25] MEDS: LORAZEPAM INJ 2 MG/1 ML VIAL IV PRN ×2 (00:44→23:20)
[2018-12-25 04:49] LABS: HEMATOCRIT 26.9 % (36.0-47.0); HEMOGLOBIN 8.7 g/dL (12.0-15.5); MEAN CORPUSCULAR HEMOGLOBIN 23.1 pg (27.0-33.4); MEAN CORPUSCULAR HGB CONC 32.3 g/dL (32.0-36.0); MEAN CORPUSCULAR VOLUME 72 fl (80-97); PLATELET COUNT 279 10^3/uL (150-450); RED BLOOD COUNT 3.77 10^6/uL (3.72-5.28); RED CELL DISTRIBUTION WIDTH 31.1 % (11.5-14.0); WHITE BLOOD COUNT 11.5 10^3/uL (4.0-10.5)
[2018-12-25 04:55] LABS: ANION GAP 9 (5-19); BLOOD UREA NITROGEN 8 mg/dL (7-20); CALCIUM 7.9 mg/dL (8.4-10.2); CARBON DIOXIDE 24 mmol/L (22-30); CHLORIDE 106 mmol/L (98-107); GLUCOSE 133 mg/dL (75-110); POTASSIUM 3.1 mmol/L (3.6-5.0)
[2018-12-25] MEDS: FENTANYL CITRATE INJ/PF 100 MCG/2 ML AMPUL IV PRN (05:14)
[2018-12-25] MEDS ORDERED: POTASSI CL 20 MEQ/50 ML RIDER 20 MEQ/50 ML RTUPB IV ONE ×2 (07:15→18:37)
[2018-12-25 07:24] LABS: ABSOLUTE LYMPHOCYTES# (MANUAL) 1.4 10^3/uL (0.5-4.7); ABSOLUTE MONOCYTES # (MANUAL) 0.6 10^3/uL (0.1-1.4); BASOPHILS % (MANUAL) 0 % (0-2); EOSINOPHILS % (MANUAL) 0 % (0-6); LYMPHOCYTES % (MANUAL) 12 % (13-45); MONOCYTES % (MANUAL) 5 % (3-13); SEGMENTED NEUTROPHILS % (MAN) 83 % (42-78); TOTAL CELLS COUNTED 100
[2018-12-25] MEDS: DILTIAZEM HCL/D5W 125 MG/125 ML RTUINJ IV PRN (07:24)
[2018-12-25 07:26] LABS: ANISOCYTOSIS 4+; BURR CELLS SLIGHT; HYPOCHROMASIA 2+; OVALOCYTES SLIGHT; PLATELET COMMENT ADEQUATE; POIKILOCYTOSIS SLIGHT; SCHISTOCYTES 1+; TARGET CELLS SLIGHT
--- NOTE | 2018-12-25 08:22 | RADIOLOGY REPORT (SQ) ---
EXAM DESCRIPTION: CHEST SINGLE VIEW COMPLETED DATE/TIME: 12/25/2018 7:07 am REASON FOR STUDY: copd COMPARISON: 12/23/2018. EXAM PARAMETERS: NUMBER OF VIEWS: One view. TECHNIQUE: Single frontal radiographic view of the chest acquired. RADIATION DOSE: NA LIMITATIONS: None. FINDINGS: LUNGS AND PLEURA: Patchy basilar densities and pleural effusions, left greater than right. MEDIASTINUM AND HILAR STRUCTURES: No masses. Contour normal. HEART AND VASCULAR STRUCTURES: Heart normal in size. Normal vasculature. BONES: No acute findings. HARDWARE: PICC line. The nasogastric tube has been removed. OTHER: No other significant finding. IMPRESSION: OVERALL NO SIGNIFICANT CHANGE IN APPEARANCE OF THE CHEST. TECHNICAL DOCUMENTATION: JOB ID: [id number] [employer]- All Rights Reserved Reading location - IP/workstation name: [email or web address]
[2018-12-25] MEDS: NORMAL SALINE 1000 ML 1,000 ML IV PRN ×2 (08:45→17:42)
[2018-12-25] MEDS: ENOXAPARIN SODIUM INJ 40 MG/0.4 ML DISP.SYRIN SUBCUT SCH ×2 (09:20→21:54)
[2018-12-25] MEDS: FUROSEMIDE INJ/PF 20 MG/2 ML SDV IV SCH (09:20)
[2018-12-25] MEDS: PANTOPRAZOLE SODIUM 40 MG VIAL IV SCH ×2 (09:20→21:54)
[2018-12-25] MEDS: NORMAL SALINE 10 ML SDV (SCHEDULED) IV SCH ×2 (09:21→22:01)
[2018-12-25] MEDS: NICOTINE 21 MG/24 HR PATCH.TD24 TD SCH (09:21)
--- NOTE | 2018-12-25 18:37 | PDOC PROGRESS REPORT ---
Subjective Progress Note for:: 12/25/18 Subjective:: feels hungry but no flatus yet Reason For Visit: SYMPTOMATIC ANEMIA Physical Exam Vital Signs: Temp Pulse Resp BP Pulse Ox 99.3 F 106 H 29 H 127/85 H 89 L 12/25/18 16:00 12/25/18 16:00 12/25/18 18:13 12/25/18 18:13 12/25/18 18:13 Intake & Output 12/24/18 12/25/18 12/26/18 06:59 06:59 06:59 Intake Total 2638 2829 1503 Output Total 3180 2675 1385 Balance -542 154 118 Weight 40.3 kg 42.1 kg Exam: abdomen is still distended but soft and non tender Results Laboratory Results: 12/25/18 04:08 12/25/18 04:08 12/25/18 12/25/18 04:08 04:08 WBC 11.5 H RBC 3.77 Hgb 8.7 L Hct 26.9 L MCV 72 L MCH 23.1 L MCHC 32.3 RDW 31.1 H Plt Count 279 Seg Neutrophils % Not Reportable Lymphocytes % Not Reportable Monocytes % Not Reportable Eosinophils % Not Reportable Basophils % Not Reportable Absolute Neutrophils Not Reportable Absolute Lymphocytes Not Reportable Absolute Monocytes Not Reportable Absolute Eosinophils Not Reportable Absolute Basophils Not Reportable Sodium 138.6 Potassium 3.1 L Chloride 106 Carbon Dioxide 24 Anion Gap 9 BUN 8 Creatinine 0.58 Est GFR ( Amer) > 60 Est GFR (Non-Af Amer) > 60 Glucose 133 H Calcium 7.9 L Phosphorus 3.0 Magnesium 1.7 12/17/18 12/23/18 21:35 10:33 Troponin I < 0.012 < 0.012 Impressions: Chest/Abdomen CTA 12/23/18 00:00 IMPRESSION: Bilateral pulmonary emboli, right more than left. Low clot burden. Moderate left pleural effusion with smaller right pleural effusion. Associated atelectasis. Abdominal aortic aneurysm. Interventional Vascular Procedure 12/23/18 00:00 IMPRESSION: SUCCESSFUL PLACEMENT OF A 5 FR DUAL LUMEN 33 CM PICC IN THE LEFT BASILIC VEIN. PICC Line Insertion 12/23/18 00:00 IMPRESSION: SUCCESSFUL PLACEMENT OF A 5 FR DUAL LUMEN 33 CM PICC IN THE LEFT BASILIC VEIN. Chest X-Ray 12/25/18 06:00 IMPRESSION: OVERALL NO SIGNIFICANT CHANGE IN APPEARANCE OF THE CHEST. Assessment & Plan - Diagnosis (1) Acute blood loss anemia Is this a current diagnosis for this admission?: Yes (2) Cocaine abuse Is this a current diagnosis for this admission?: Yes (3) GI bleeding Qualifiers: GI bleed type/associated pathology: unspecified gastrointestinal hemorrhage type Qualified Code(s): K92.2 - Gastrointestinal hemorrhage, unspecified Is this a current diagnosis for this admission?: Yes (4) Colon perforation Is this a current diagnosis for this admission?: Yes - Time Time Spent with patient: 15-24 minutes - Inpatient Certification Medical Necessity: Need For IV Fluids, Need for IV Antibiotics - Plan Summary Plan Summary: Still with post op ileus with low K. Ordered 20 meq Will order another KCL 20 meq and repeat BMP in am
--- NOTE | 2018-12-25 18:54 | PDOC PROGRESS REPORT ---
Subjective Progress Note for:: 12/25/18 Subjective:: No adverse events overnight. Her breathing does not look very good but she is refusing to go back on BiPAP. She is willing to take nebulizer treatments. She keeps saying she wants to eat but her gut function does not seem to have completely recovered. She again reiterates her desire to not have BiPAP, not be intubated, and not be resuscitated if her heart stops. Reason For Visit: SYMPTOMATIC ANEMIA Physical Exam Vital Signs: Temp Pulse Resp BP Pulse Ox 99.3 F 106 H 29 H 127/85 H 89 L 12/25/18 16:00 12/25/18 16:00 12/25/18 18:13 12/25/18 18:13 12/25/18 18:13 Intake & Output 12/24/18 12/25/18 12/26/18 06:59 06:59 06:59 Intake Total 2638 2829 1603 Output Total 3180 2675 1385 Balance -542 154 218 Weight 40.3 kg 42.1 kg General appearance: PRESENT: disheveled, mild distress, thin Teeth exam: PRESENT: poor dentation Respiratory exam: PRESENT: decreased breath sounds, symmetrical, tachypnea. ABSENT: accessory muscle use, crackles, prolonged expiratory phas, rhonchi, wheezes Cardiovascular exam: PRESENT: irregular rhythm Pulses: PRESENT: normal carotid pulses Vascular exam: PRESENT: normal capillary refill GI/Abdominal exam: PRESENT: normal bowel sounds, soft, tenderness - Mild and appropriate, other - Surgical incision is clean, not erythematous, and without oozing. ABSENT: distended, guarding, rebound Extremities exam: ABSENT: clubbing Musculoskeletal exam: PRESENT: normal inspection. ABSENT: deformity Neurological exam: PRESENT: awake, oriented to person, place, and situation Psychiatric exam: PRESENT: agitated Skin exam: PRESENT: dry, warm Results Laboratory Results: 12/25/18 04:08 12/25/18 04:08 12/25/18 12/25/18 04:08 04:08 WBC 11.5 H RBC 3.77 Hgb 8.7 L Hct 26.9 L MCV 72 L MCH 23.1 L MCHC 32.3 RDW 31.1 H Plt Count 279 Seg Neutrophils % Not Reportable Lymphocytes % Not Reportable Monocytes % Not Reportable Eosinophils % Not Reportable Basophils % Not Reportable Absolute Neutrophils Not Reportable Absolute Lymphocytes Not Reportable Absolute Monocytes Not Reportable Absolute Eosinophils Not Reportable Absolute Basophils Not Reportable Sodium 138.6 Potassium 3.1 L Chloride 106 Carbon Dioxide 24 Anion Gap 9 BUN 8 Creatinine 0.58 Est GFR ( Amer) > 60 Est GFR (Non-Af Amer) > 60 Glucose 133 H Calcium 7.9 L Phosphorus 3.0 Magnesium 1.7 12/17/18 12/23/18 21:35 10:33 Troponin I < 0.012 < 0.012 Impressions: Chest/Abdomen CTA 12/23/18 00:00 IMPRESSION: Bilateral pulmonary emboli, right more than left. Low clot burden. Moderate left pleural effusion with smaller right pleural effusion. Associated atelectasis. Abdominal aortic aneurysm. Interventional Vascular Procedure 12/23/18 00:00 IMPRESSION: SUCCESSFUL PLACEMENT OF A 5 FR DUAL LUMEN 33 CM PICC IN THE LEFT BASILIC VEIN. PICC Line Insertion 12/23/18 00:00 IMPRESSION: SUCCESSFUL PLACEMENT OF A 5 FR DUAL LUMEN 33 CM PICC IN THE LEFT BASILIC VEIN. Chest X-Ray 12/25/18 06:00 IMPRESSION: OVERALL NO SIGNIFICANT CHANGE IN APPEARANCE OF THE CHEST. Assessment and Plan - Diagnosis (1) Acute respiratory acidosis Is this a current diagnosis for this admission?: Yes Plan: Resolved. Currently on heated high flow nasal cannula but still tachypneic. She does not want to go back on BiPAP as noted above. She was agreeing to do nebulizer treatments. Trying to hold off on starting steroids on her because of her recent surgery, but if her breathing deteriorates we may have to start so mething to see if that will help her breathing at all. (2) Atrial fibrillation with RVR Is this a current diagnosis for this admission?: Yes Plan: Blood pressure is tolerating the Cardizem, she still on the drip at this time. Heart rate is running right around 100 to 110. (3) Acute blood loss anemia Is this a current diagnosis for this admission?: Yes Plan: Resolved. Hemoglobin has been stable the last several times it has been checked. Suspected to be due to GI bleeding. (4) Cocaine abuse Is this a current diagnosis for this admission?: Yes Plan: Her family moved her down here from [place] and attempt to get her away from her network of Associates in the hopes that she would quit smoking crack. We will offer her counseling services at discharge. (5) Colon perforation Is this a current diagnosis for this admission?: Yes Plan: She came in with some anemia, and through a series of events it seems she had a colon perforation. That has been treated surgically. Incision looks good and her hemoglobin is stable. I increased her Levaquin dose and added Flagyl for anaerobic coverage. Diet has been advanced by surgery. (6) Bilateral pulmonary embolism Is this a current diagnosis for this admission?: Yes Plan: She had a recent diagnosis of this a couple of months ago and had been on Eliquis. We had to stop it because of her bleeding. We have restarted Lovenox until she can take p.o. again. Talked about restarting anticoagulation with surgery and they were okay with it. - Time Time Spent with patient: 35 or more minutes
[2018-12-25] MEDS: IPRATROPIUM/ALBUTEROL 0.5-2.5 MG/3 ML AMPUL NEB PRN (23:37)
[2018-12-26] MEDS: LEVALBUTEROL HCL NEB 1.25 MG/3 ML AMPUL NEB SCH ×6 (00:01→19:44)
[2018-12-26] MEDS: FENTANYL CITRATE INJ/PF 100 MCG/2 ML AMPUL IV PRN ×3 (03:06→23:33)
[2018-12-26] MEDS: NORMAL SALINE 1000 ML 1,000 ML IV PRN ×3 (04:03→23:21)
[2018-12-26 04:46] LABS: HEMATOCRIT 26.9 % (36.0-47.0); HEMOGLOBIN 8.7 g/dL (12.0-15.5); MEAN CORPUSCULAR HEMOGLOBIN 23.2 pg (27.0-33.4); MEAN CORPUSCULAR HGB CONC 32.5 g/dL (32.0-36.0); MEAN CORPUSCULAR VOLUME 71 fl (80-97); PLATELET COUNT 299 10^3/uL (150-450); RED BLOOD COUNT 3.78 10^6/uL (3.72-5.28); RED CELL DISTRIBUTION WIDTH 31.3 % (11.5-14.0); WHITE BLOOD COUNT 10.4 10^3/uL (4.0-10.5)
[2018-12-26 04:59] LABS: ANION GAP 9 (5-19); BLOOD UREA NITROGEN 7 mg/dL (7-20); CALCIUM 7.9 mg/dL (8.4-10.2); CARBON DIOXIDE 24 mmol/L (22-30); CHLORIDE 106 mmol/L (98-107); GLUCOSE 89 mg/dL (75-110); POTASSIUM 3.3 mmol/L (3.6-5.0)
[2018-12-26] MEDS: METRONIDAZOLE 500 MG/NS RTU 500 MG/100 ML RTUPB IV SCH ×4 (05:09→23:12)
[2018-12-26 05:16] LABS: ABSOLUTE LYMPHOCYTES# (MANUAL) 1.4 10^3/uL (0.5-4.7); ABSOLUTE MONOCYTES # (MANUAL) 0.3 10^3/uL (0.1-1.4); BAND NEUTROPHILS % (MANUAL) 1 % (3-5); BASOPHILS % (MANUAL) 0 % (0-2); EOSINOPHILS % (MANUAL) 0 % (0-6); LYMPHOCYTES % (MANUAL) 13 % (13-45); MONOCYTES % (MANUAL) 3 % (3-13); SEGMENTED NEUTROPHILS % (MAN) 83 % (42-78); TOTAL CELLS COUNTED 100
[2018-12-26 05:17] LABS: ANISOCYTOSIS 4+; HYPOCHROMASIA 3+; TARGET CELLS 2+
[2018-12-26 05:18] LABS: PLATELET COMMENT ADEQUATE
[2018-12-26] MEDS: DILTIAZEM HCL/D5W 125 MG/125 ML RTUINJ IV PRN (08:01)
[2018-12-26] MEDS ORDERED: BISACODYL 10 MG SUPP.RECT PR ONE (09:30)
[2018-12-26] MEDS: FUROSEMIDE INJ/PF 20 MG/2 ML SDV IV SCH (09:37)
[2018-12-26] MEDS: LEVOFLOXACIN 750 MG/D5W RTU 750 MG/150 ML RTUPB IV SCH (09:37)
[2018-12-26] MEDS: PANTOPRAZOLE SODIUM 40 MG VIAL IV SCH ×2 (09:38→21:12)
[2018-12-26] MEDS: NICOTINE 21 MG/24 HR PATCH.TD24 TD SCH (09:38)
[2018-12-26] MEDS: ENOXAPARIN SODIUM INJ 40 MG/0.4 ML DISP.SYRIN SUBCUT SCH ×2 (09:38→21:12)
[2018-12-26] MEDS: NORMAL SALINE 10 ML SDV (SCHEDULED) IV SCH ×2 (10:37→21:20)
--- NOTE | 2018-12-26 14:16 | PDOC CONSULTATION ---
Consultation Consult Date: 12/20/18 Attending physician:: FILIPPO SANDRA Provider Consulted: MORRO PATEL Consult reason:: COPD/pulmonary hypertension History of Present Illness Admission Date/PCP: 12/18/18 00:37 History of Present Illness: LOVE RAND is a 73 year old female, brought to the emergency room for alteration of the mental status and dyspnea she is reported by family to have had a acute episode of using crack cocaine she is also known to have had recent episodes of GI bleeds with her bright red blood in emesis as well as melanotic stools. It was noted at the time of admission she was also profoundly anemic and 2 units of packed red blood cells were ordered immediately upon receiving her initial laboratory evaluation currently she is currently in ICU on BiPAP possible but unable to sustain a conversation. Past Medical History Cardiac Medical History: Reports: Hypertension Pulmonary Medical History: Reports: Chronic Obstructive Pulmonary Disease (COPD), Respiratory Failure EENT Medical History: Denies: Cataracts, Throat Neurological Medical History: Denies: Hemorrhagic CVA, Ischemic CVA, Multiple Sclerosis, Seizures Endocrine Medical History: Denies: Diabetes Mellitus Type 1, Diabetes Mellitus Type 2, Gestational Diabetes, Hyperthyroidism, Hypothyroidism Renal/ Medical History: Reports: None Malignancy Medical History: Reports: None GI Medical History: Denies: Cirrhosis, Crohn's Disease, Hepatitis, Ulcerative Colitis Musculoskeltal Medical History: Denies: Fibromyalgia, Gout Psychiatric Medical History: Reports: Substance Abuse, Tobacco Dependency Traumatic Medical History: Denies: Gunshot Wound, Pneumothorax, Stab Wound Hematology: Denies: Anemia, Hemophilia, Sickle Cell Disease Infectious Medical History: Denies: Hepatitis B, Hepatitis C, HIV Past Surgical History Past Surgical History: Reports: Appendectomy, Section, Hysterectomy, Tonsillectomy Social History Information Source: [facility] Records Smoking Status: Current Every Day Smoker Cigarettes Packs Per Day: 2 Number of Years Smokin Passive smoke exposure as: Both Frequency of Alcohol Use: Social Hx Recreational Drug Use: Yes Drugs: Cocaine Hx Prescription Drug Abuse: No Do you have pets?: No Have you had any respiratory illnesses as a child?: No Have you been exposed to any sick contacts recently?: No Have you had any recent respiratory illnesses?: No Have you travelled outside of [place] in the past 12 months?: No - Advance Directive Resuscitation Status: Do Not Resuscitate Family History Family History: DM, Hypertension Parental Family History Reviewed: No Children Family History Reviewed: No Sibling(s) Family History Reviewed.: No Medication/Allergy Home Medications: Apixaban [Eliquis 5 mg Tablet] 5 mg PO BID 12/18/18 Aspirin [Ecotrin 81 mg EC Tablet] 81 mg PO DAILY 12/18/18 Calcium Carbonate/Vitamin D3 [Calcium 600 + Vit D Tablet] 1 tab PO DAILY 12/18/18 Chlorthalidone [Hygroton 25 mg Tablet] 25 mg PO DAILY 12/18/18 Cholecalciferol (Vitamin D3) [Vitamin D3 2000 unit Tablet] 2,000 unit PO DAILY 12/18/18 Allergies/Adverse Reactions: No Known Allergies Allergy (Unverified 12/18/18 12:40) Review of Systems ROS unobtainable: Due to mental status Physical Exam Vital Signs: Temp Pulse Resp BP Pulse Ox 91.6 F L 70 16 63/54 L 97 12/20/18 13:53 12/20/18 14:00 12/20/18 16:27 12/20/18 16:27 12/20/18 16:27 Intake & Output 12/19/18 12/20/18 12/21/18 06:59 06:59 06:59 Intake Total 400 1100 1002 Output Total 1400 0 Balance -1000 1100 1002 Weight 34.1 kg 34.1 kg 37 kg General appearance: PRESENT: disheveled, mild distress, thin. ABSENT: cooperative Head exam: PRESENT: atraumatic, normocephalic Eye exam: PRESENT: conjunctiva pale, EOMI. ABSENT: nystagmus, periorbital swelling Mouth exam: PRESENT: dry mucosa, neck supple, tongue midline Teeth exam: PRESENT: poor dentation Neck exam: ABSENT: carotid bruit, full ROM, JVD, lymphadenopathy, meningismus, tenderness, thyromegaly, tracheal deviation, tracheostomy, other Respiratory exam: PRESENT: decreased breath sounds, prolonged expiratory phas, rales, rhonchi, unlabored, wheezes. ABSENT: retraction, stridor Cardiovascular exam: PRESENT: RRR, +S1, +S2, tachycardia Pulses: PRESENT: normal radial pulses GI/Abdominal exam: PRESENT: soft. ABSENT: mass, tenderness Gentrourinary exam: PRESENT: indwelling catheter Extremities exam: ABSENT: calf tenderness, clubbing, joint swelling, pedal edema Musculoskeletal exam: ABSENT: ambulatory, deformity, dislocation Neurological exam: PRESENT: altered Psychiatric exam: PRESENT: agitated Skin exam: PRESENT: dry, warm Results Laboratory Results: 12/20/18 04:45 12/17/18 21:35 12/20/18 12/20/18 04:45 15:10 WBC 11.6 H RBC 4.25 Hgb 9.8 L Hct 31.5 L MCV 74 L MCH 23.0 L MCHC 31.1 L RDW 28.1 H Plt Count 410 Seg Neutrophils % Not Reportable Lymphocytes % Not Reportable Monocytes % Not Reportable Eosinophils % Not Reportable Basophils % Not Reportable Absolute Neutrophils Not Reportable Absolute Lymphocytes Not Reportable Absolute Monocytes Not Reportable Absolute Eosinophils Not Reportable Absolute Basophils Not Reportable Carbonic Acid 1.43 H HCO3/H2CO3 Ratio 15:1 ABG pH 7.27 L ABG pCO2 47.5 H ABG pO2 68.0 L ABG HCO3 21.5 ABG O2 Saturation 91.1 L ABG Base Excess -5.3 FiO2 40% 12/17/18 21:35 Troponin I < 0.012 Impressions: Chest X-Ray 12/20/18 13:43 IMPRESSION: 1. Interval placement of endotracheal tube, tip above the odalis. 2. Interval placement of esophagogastric tube, tip below the diaphragm, side port above the gastroesophageal junction. Recommend advancement. 3. There is new heterogeneous opacity and volume loss of the left lung with a small associated left pleural effusion, concerning for infection or aspiration. 4. Probable emphysema. 5. Cardiomegaly. 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
--- NOTE | 2018-12-26 15:43 | PDOC PROGRESS REPORT ---
Subjective Progress Note for:: 12/26/18 Subjective:: No adverse events overnight. She continues to breathe heavily on the heated high flow nasal cannula but somehow her respiratory rate is staying in the mid 20s and she is keeping her SPO2 greater than 90%. She said her main concern is that she wants something to eat. Surgeries try to get her to have a bowel movement before they advance her diet. She is thus far been tolerating clear liquids without any difficulty. Reason For Visit: SYMPTOMATIC ANEMIA Physical Exam Vital Signs: Temp Pulse Resp BP Pulse Ox 99.1 F 103 H 27 H 122/77 94 12/26/18 14:00 12/26/18 14:00 12/26/18 14:14 12/26/18 14:14 12/26/18 14:14 Intake & Output 12/25/18 12/26/18 12/27/18 06:59 06:59 06:59 Intake Total 2979 2703 1923 Output Total 2675 2905 1300 Balance 304 -202 623 Weight 42.1 kg 41.7 kg General appearance: PRESENT: disheveled, mild distress, thin Teeth exam: PRESENT: poor dentation Respiratory exam: PRESENT: decreased breath sounds, symmetrical, tachypnea. ABSENT: accessory muscle use, crackles, prolonged expiratory phas, rhonchi, wheezes Cardiovascular exam: PRESENT: irregular rhythm Pulses: PRESENT: normal carotid pulses Vascular exam: PRESENT: normal capillary refill GI/Abdominal exam: PRESENT: normal bowel sounds, soft, tenderness - Mild and appropriate, other - Surgical incision is clean, not erythematous, and without oozing. ABSENT: distended, guarding, rebound Extremities exam: ABSENT: clubbing Musculoskeletal exam: PRESENT: normal inspection. ABSENT: deformity Neurological exam: PRESENT: awake, oriented to person, place, and situation Psychiatric exam: PRESENT: agitated Skin exam: PRESENT: dry, warm Results Laboratory Results: 12/26/18 04:00 12/26/18 04:00 12/26/18 12/26/18 04:00 04:00 WBC 10.4 RBC 3.78 Hgb 8.7 L Hct 26.9 L MCV 71 L MCH 23.2 L MCHC 32.5 RDW 31.3 H Plt Count 299 Seg Neutrophils % Not Reportable Lymphocytes % Not Reportable Monocytes % Not Reportable Eosinophils % Not Reportable Basophils % Not Reportable Absolute Neutrophils Not Reportable Absolute Lymphocytes Not Reportable Absolute Monocytes Not Reportable Absolute Eosinophils Not Reportable Absolute Basophils Not Reportable Sodium 139.3 Potassium 3.3 L Chloride 106 Carbon Dioxide 24 Anion Gap 9 BUN 7 Creatinine 0.56 Est GFR ( Amer) > 60 Est GFR (Non-Af Amer) > 60 Glucose 89 Calcium 7.9 L 12/17/18 12/23/18 21:35 10:33 Troponin I < 0.012 < 0.012 Impressions: Chest/Abdomen CTA 12/23/18 00:00 IMPRESSION: Bilateral pulmonary emboli, right more than left. Low clot burden. Moderate left pleural effusion with smaller right pleural effusion. Associated atelectasis. Abdominal aortic aneurysm. Interventional Vascular Procedure 12/23/18 00:00 IMPRESSION: SUCCESSFUL PLACEMENT OF A 5 FR DUAL LUMEN 33 CM PICC IN THE LEFT BASILIC VEIN. PICC Line Insertion 12/23/18 00:00 IMPRESSION: SUCCESSFUL PLACEMENT OF A 5 FR DUAL LUMEN 33 CM PICC IN THE LEFT BASILIC VEIN. Chest X-Ray 12/25/18 06:00 IMPRESSION: OVERALL NO SIGNIFICANT CHANGE IN APPEARANCE OF THE CHEST. Assessment and Plan - Diagnosis (1) Acute respiratory acidosis Is this a current diagnosis for this admission?: Yes Plan: Resolved. Currently on heated high flow nasal cannula but still tachypneic. She does not want to go back on BiPAP as easily noted. She was agreeing to do nebulizer treatments. Trying to hold off on starting steroids on her because of her recent surgery, but if her breathing deteriorates we may have to start something to see if that will help her breathing at all. (2) Atrial fibrillation with RVR Is this a current diagnosis for this admission?: Yes Plan: Blood pressure is tolerating the Cardizem, she still on the drip at this time. Heart rate is running right around 100 to 110. We will transition her to p.o. once surgery advances her diet. (3) Acute blood loss anemia Is this a current diagnosis for this admission?: Yes Plan: Resolved. Hemoglobin has been stable the last several times it has been checked. Suspected to be due to GI bleeding. (4) Cocaine abuse Is this a current diagnosis for this admission?: Yes Plan: Her family moved her down here from [place] and attempt to get her away from her network of Associates in the hopes that she would quit smoking crack. We will offer her counseling services at discharge. (5) Colon perforation Is this a current diagnosis for this admission?: Yes Plan: She came in with some anemia, and through a series of events it seems she had a colon perforation. That has been treated surgically. Incision looks good and her hemoglobin is stable. I increased her Levaquin dose and added Flagyl for anaerobic coverage. Diet advancement per surgical discretion. (6) Bilateral pulmonary embolism Is this a current diagnosis for this admission?: Yes Plan: She had a recent diagnosis of this a couple of months ago and had been on Eliquis. We had to stop it because of her bleeding. We have restarted Lovenox until she can take p.o. again. Talked about restarting anticoagulation with surgery and they were okay with it. We will switch her to Eliquis when she is able to take p.o. - Time Time Spent with patient: 25-34 minutes
[2018-12-27] MEDS: LEVALBUTEROL HCL NEB 1.25 MG/3 ML AMPUL NEB SCH ×7 (00:43→23:52)
[2018-12-27] MEDS: DILTIAZEM HCL/D5W 125 MG/125 ML RTUINJ IV PRN (02:24)
[2018-12-27] MEDS: LORAZEPAM INJ 2 MG/1 ML VIAL IV PRN (03:17)
[2018-12-27 04:41] LABS: HEMATOCRIT 28.3 % (36.0-47.0); HEMOGLOBIN 8.9 g/dL (12.0-15.5); MEAN CORPUSCULAR HEMOGLOBIN 22.6 pg (27.0-33.4); MEAN CORPUSCULAR HGB CONC 31.4 g/dL (32.0-36.0); MEAN CORPUSCULAR VOLUME 72 fl (80-97); PLATELET COUNT 388 10^3/uL (150-450); RED BLOOD COUNT 3.93 10^6/uL (3.72-5.28); RED CELL DISTRIBUTION WIDTH 31.6 % (11.5-14.0); WHITE BLOOD COUNT 11.7 10^3/uL (4.0-10.5)
[2018-12-27 04:43] LABS: ARTERIAL BLOOD BASE EXCESS -3.3 mmol/L; ARTERIAL BLOOD HCO3 21.4 mmol/L (20-24); ARTERIAL BLOOD O2 SATURATION 90.9 % (94-98); ARTERIAL BLOOD PCO2 36.5 mmHg (35-45); ARTERIAL BLOOD PH 7.39 (7.35-7.45); ARTERIAL BLOOD PO2 60.1 mmHg (80-100); ARTERIAL BLOOD TOTAL CO2 22.5 mmol/L (21-25)
[2018-12-27 04:44] LABS: ARTERIAL BLOOD FIO2 15L
[2018-12-27 04:59] LABS: ANION GAP 10 (5-19); BLOOD UREA NITROGEN 7 mg/dL (7-20); CALCIUM 7.9 mg/dL (8.4-10.2); CARBON DIOXIDE 23 mmol/L (22-30); CHLORIDE 105 mmol/L (98-107); POTASSIUM 3.3 mmol/L (3.6-5.0)
[2018-12-27 05:03] LABS: GLUCOSE 65 mg/dL (75-110)
[2018-12-27 05:12] LABS: ABSOLUTE LYMPHOCYTES# (MANUAL) 1.8 10^3/uL (0.5-4.7); ABSOLUTE MONOCYTES # (MANUAL) 0.9 10^3/uL (0.1-1.4); BASOPHILS % (MANUAL) 0 % (0-2); EOSINOPHILS % (MANUAL) 1 % (0-6); LYMPHOCYTES % (MANUAL) 15 % (13-45); MONOCYTES % (MANUAL) 8 % (3-13); SEGMENTED NEUTROPHILS % (MAN) 76 % (42-78); TOTAL CELLS COUNTED 100
[2018-12-27 05:14] LABS: ANISOCYTOSIS 4+; HYPOCHROMASIA 2+; OVALOCYTES SLIGHT; PLATELET COMMENT ADEQUATE; POIKILOCYTOSIS 1+; SCHISTOCYTES SLIGHT; TARGET CELLS 1+
[2018-12-27] MEDS: METRONIDAZOLE 500 MG/NS RTU 500 MG/100 ML RTUPB IV SCH ×4 (05:41→23:11)
[2018-12-27] MEDS ORDERED: MAGNESIUM SULFATE/D5W 1 GM/100 ML RTUPB IV ONE (06:26)
[2018-12-27] MEDS: MAGNESIUM SULFATE/D5W 1 GM/100 ML RTUPB IV SCH ×3 (06:47→08:49)
[2018-12-27] MEDS: POTASSIUM CHLORIDE 20 MEQ/50 ML RTU IV SCH ×2 (06:47→08:22)
[2018-12-27] MEDS: ENOXAPARIN SODIUM INJ 40 MG/0.4 ML DISP.SYRIN SUBCUT SCH ×2 (12:12→21:18)
[2018-12-27] MEDS: NICOTINE 21 MG/24 HR PATCH.TD24 TD SCH (12:13)
[2018-12-27] MEDS: PANTOPRAZOLE SODIUM 40 MG VIAL IV SCH ×2 (12:15→21:18)
[2018-12-27] MEDS: FUROSEMIDE INJ/PF 20 MG/2 ML SDV IV SCH (12:15)
[2018-12-27] MEDS: NORMAL SALINE 10 ML SDV (SCHEDULED) IV SCH ×2 (13:26→21:17)
[2018-12-27] MEDS: FENTANYL CITRATE INJ/PF 100 MCG/2 ML AMPUL IV PRN ×2 (15:36→19:34)
--- NOTE | 2018-12-27 16:23 | PDOC PROGRESS REPORT ---
Subjective Progress Note for:: 12/27/18 Subjective:: No adverse events overnight. She is doing well on her current settings on the heated high flow nasal cannula but were not been able to really get her down too much. She is on about 60 L/min of flow with her oxygen set on about 10 L/min. She is tolerating clear liquids. On the monitor she looks to have converted to a sinus rhythm. Reason For Visit: ACUTE GI BLEED,COLON PERFORATION Physical Exam Vital Signs: Temp Pulse Resp BP Pulse Ox 99.3 F 99 21 H 134/82 H 96 12/27/18 16:00 12/27/18 16:00 12/27/18 16:00 12/27/18 16:00 12/27/18 16:00 Intake & Output 12/26/18 12/27/18 12/28/18 06:59 06:59 06:59 Intake Total 2703 3588 660 Output Total 2905 2280 725 Balance -202 1308 -65 Weight 41.7 kg 41.4 kg General appearance: PRESENT: disheveled, mild distress, thin Teeth exam: PRESENT: poor dentation Respiratory exam: PRESENT: decreased breath sounds, symmetrical, tachypnea. ABSENT: accessory muscle use, crackles, prolonged expiratory phas, rhonchi, whe ezes Cardiovascular exam: PRESENT: Regular rate and rhythm Pulses: PRESENT: normal carotid pulses Vascular exam: PRESENT: normal capillary refill GI/Abdominal exam: PRESENT: normal bowel sounds, soft, tenderness - Mild and appropriate, other - Surgical incision is clean, not erythematous, and without oozing. ABSENT: distended, guarding, rebound Extremities exam: ABSENT: clubbing Musculoskeletal exam: PRESENT: normal inspection. ABSENT: deformity Neurological exam: PRESENT: awake, oriented to person, place, and situation Psychiatric exam: PRESENT: Alert, oriented, a bit cantankerous Skin exam: PRESENT: dry, warm Results Laboratory Results: 12/27/18 03:30 12/27/18 03:30 12/27/18 12/27/18 12/27/18 03:30 03:30 04:35 WBC 11.7 H RBC 3.93 Hgb 8.9 L Hct 28.3 L MCV 72 L MCH 22.6 L MCHC 31.4 L RDW 31.6 H Plt Count 388 Seg Neutrophils % Not Reportable Lymphocytes % Not Reportable Monocytes % Not Reportable Eosinophils % Not Reportable Basophils % Not Reportable Absolute Neutrophils Not Reportable Absolute Lymphocytes Not Reportable Absolute Monocytes Not Reportable Absolute Eosinophils Not Reportable Absolute Basophils Not Reportable Carbonic Acid 1.10 HCO3/H2CO3 Ratio 19:1 ABG pH 7.39 ABG pCO2 36.5 ABG pO2 60.1 L ABG HCO3 21.4 ABG O2 Saturation 90.9 L ABG Base Excess -3.3 FiO2 15L Sodium 138.3 Potassium 3.3 L Chloride 105 Carbon Dioxide 23 Anion Gap 10 BUN 7 Creatinine 0.65 Est GFR ( Amer) > 60 Est GFR (Non-Af Amer) > 60 Glucose 65 L Calcium 7.9 L Magnesium 1.2 L* 12/17/18 12/23/18 21:35 10:33 Troponin I < 0.012 < 0.012 Impressions: Chest/Abdomen CTA 12/23/18 00:00 IMPRESSION: Bilateral pulmonary emboli, right more than left. Low clot burden. Moderate left pleural effusion with smaller right pleural effusion. Associated atelectasis. Abdominal aortic aneurysm. Interventional Vascular Procedure 12/23/18 00:00 IMPRESSION: SUCCESSFUL PLACEMENT OF A 5 FR DUAL LUMEN 33 CM PICC IN THE LEFT BASILIC VEIN. PICC Line Insertion 12/23/18 00:00 IMPRESSION: SUCCESSFUL PLACEMENT OF A 5 FR DUAL LUMEN 33 CM PICC IN THE LEFT BASILIC VEIN. Chest X-Ray 12/25/18 06:00 IMPRESSION: OVERALL NO SIGNIFICANT CHANGE IN APPEARANCE OF THE CHEST. Assessment and Plan - Diagnosis (1) Acute respiratory acidosis Is this a current diagnosis for this admission?: Yes Plan: Resolved. Currently on heated high flow nasal cannula but still tachypneic and if respiratory tries to wean her settings she tends to deteriorate.. She does not want to go back on BiPAP as easily noted. She was agreeing to do nebulizer treatments. Trying to hold off on starting steroids on her because of her recent surgery, but if her breathing deteriorates we may have to start something to see if that will help her breathing at all. (2) Atrial fibrillation with RVR Is this a current diagnosis for this admission?: Yes Plan: Looks to have converted to a sinus rhythm. On p.o. Cardizem. Anticoagulated, will transition to Eliquis when she is able to take p.o. reliably. (3) Acute blood loss anemia Is this a current diagnosis for this admission?: Yes Plan: Resolved. Hemoglobin has been stable the last several times it has been checked. Suspected to be due to GI bleeding. (4) Cocaine abuse Is this a current diagnosis for this admission?: Yes Plan: Her family moved her down here from [place] and attempt to get her away from her network of Associates in the hopes that she would quit smoking crack. We will offer her counseling services at discharge. (5) Colon perforation Is this a current diagnosis for this admission?: Yes Plan: She came in with some anemia, and through a series of events it seems she had a colon perforation. That has been treated surgically. Incision looks good and her hemoglobin is stable. I increased her Levaquin dose and added Flagyl for anaerobic coverage. Diet advancement per surgical discretion. (6) Bilateral pulmonary embolism Is this a current diagnosis for this admission?: Yes Plan: She had a recent diagnosis of this a couple of months ago and had been on Eliquis. We had to stop it because of her bleeding. We have restarted Lovenox until she can take p.o. again. Talked about restarting anticoagulation with surgery and they were okay with it. We will switch her to Eliquis when she is able to take p.o. - Time Time Spent with patient: 25-34 minutes
[2018-12-28] MEDS: FENTANYL CITRATE INJ/PF 100 MCG/2 ML AMPUL IV PRN ×4 (00:35→20:54)
[2018-12-28] MEDS: DILTIAZEM HCL/D5W 125 MG/125 ML RTUINJ IV PRN ×2 (01:10→19:06)
[2018-12-28] MEDS: NORMAL SALINE 1000 ML 1,000 ML IV PRN (01:12)
--- NOTE | 2018-12-28 02:36 | PDOC PROGRESS REPORT ---
Subjective Progress Note for:: 12/27/18 Reason For Visit: ACUTE GI BLEED,COLON PERFORATION Physical Exam Vital Signs: Temp Pulse Resp BP Pulse Ox 99.3 F 113 H 26 H 128/87 H 94 12/27/18 16:00 12/28/18 02:00 12/27/18 23:52 12/27/18 21:46 12/27/18 23:52 Intake & Output 12/26/18 12/27/18 12/28/18 06:59 06:59 06:59 Intake Total 2703 3588 2074 Output Total 2905 2280 1645 Balance -202 1308 429 Weight 41.7 kg 41.4 kg Results Laboratory Results: 12/27/18 03:30 12/27/18 03:30 12/27/18 12/27/18 12/27/18 03:30 03:30 04:35 WBC 11.7 H RBC 3.93 Hgb 8.9 L Hct 28.3 L MCV 72 L MCH 22.6 L MCHC 31.4 L RDW 31.6 H Plt Count 388 Seg Neutrophils % Not Reportable Lymphocytes % Not Reportable Monocytes % Not Reportable Eosinophils % Not Reportable Basophils % Not Reportable Absolute Neutrophils Not Reportable Absolute Lymphocytes Not Reportable Absolute Monocytes Not Reportable Absolute Eosinophils Not Reportable Absolute Basophils Not Reportable Carbonic Acid 1.10 HCO3/H2CO3 Ratio 19:1 ABG pH 7.39 ABG pCO2 36.5 ABG pO2 60.1 L ABG HCO3 21.4 ABG O2 Saturation 90.9 L ABG Base Excess -3.3 FiO2 15L Sodium 138.3 Potassium 3.3 L Chloride 105 Carbon Dioxide 23 Anion Gap 10 BUN 7 Creatinine 0.65 Est GFR ( Amer) > 60 Est GFR (Non-Af Amer) > 60 Glucose 65 L Calcium 7.9 L Magnesium 1.2 L* 12/17/18 12/23/18 21:35 10:33 Troponin I < 0.012 < 0.012 Impressions: Chest/Abdomen CTA 12/23/18 00:00 IMPRESSION: Bilateral pulmonary emboli, right more than left. Low clot burden. Moderate left pleural effusion with smaller right pleural effusion. Associated atelectasis. Abdominal aortic aneurysm. Interventional Vascular Procedure 12/23/18 00:00 IMPRESSION: SUCCESSFUL PLACEMENT OF A 5 FR DUAL LUMEN 33 CM PICC IN THE LEFT BASILIC VEIN. PICC Line Insertion 12/23/18 00:00 IMPRESSION: SUCCESSFUL PLACEMENT OF A 5 FR DUAL LUMEN 33 CM PICC IN THE LEFT BASILIC VEIN. Chest X-Ray 12/25/18 06:00 IMPRESSION: OVERALL NO SIGNIFICANT CHANGE IN APPEARANCE OF THE CHEST. Assessment & Plan - Diagnosis (1) Colon perforation Is this a current diagnosis for this admission?: Yes - Plan Summary Plan Summary: Patient resting comfortably in bed. Abdomen is soft and mildly distended. Tolerating clear liquids. Advance to full liquids. Will follow.
[2018-12-28] MEDS: LEVALBUTEROL HCL NEB 1.25 MG/3 ML AMPUL NEB SCH ×6 (03:55→23:56)
[2018-12-28] MEDS: METRONIDAZOLE 500 MG/NS RTU 500 MG/100 ML RTUPB IV SCH ×3 (05:41→19:00)
[2018-12-28 05:53] LABS: HEMATOCRIT 25.8 % (36.0-47.0); HEMOGLOBIN 8.4 g/dL (12.0-15.5); MEAN CORPUSCULAR HEMOGLOBIN 22.8 pg (27.0-33.4); MEAN CORPUSCULAR HGB CONC 32.4 g/dL (32.0-36.0); MEAN CORPUSCULAR VOLUME 71 fl (80-97); PLATELET COUNT 427 10^3/uL (150-450); RED BLOOD COUNT 3.66 10^6/uL (3.72-5.28); RED CELL DISTRIBUTION WIDTH 31.4 % (11.5-14.0); WHITE BLOOD COUNT 12.3 10^3/uL (4.0-10.5)
[2018-12-28 06:02] LABS: ARTERIAL BLOOD BASE EXCESS 2.5 mmol/L; ARTERIAL BLOOD H2CO3 1.15 mmol/L (1.05-1.35); ARTERIAL BLOOD HCO3 26.4 mmol/L (20-24); ARTERIAL BLOOD O2 SATURATION 86.1 % (94-98); ARTERIAL BLOOD PCO2 38.2 mmHg (35-45); ARTERIAL BLOOD PH 7.46 (7.35-7.45); ARTERIAL BLOOD PO2 48.1 mmHg (80-100); ARTERIAL BLOOD TOTAL CO2 27.6 mmol/L (21-25)
[2018-12-28 06:06] LABS: ARTERIAL BLOOD FIO2 15 LPM
[2018-12-28 06:17] LABS: ABSOLUTE LYMPHOCYTES# (MANUAL) 1.8 10^3/uL (0.5-4.7); ABSOLUTE MONOCYTES # (MANUAL) 0.4 10^3/uL (0.1-1.4); BAND NEUTROPHILS % (MANUAL) 1 % (3-5); BASOPHILS % (MANUAL) 0 % (0-2); EOSINOPHILS % (MANUAL) 1 % (0-6); LYMPHOCYTES % (MANUAL) 15 % (13-45); MONOCYTES % (MANUAL) 3 % (3-13); PLATELET COMMENT ADEQUATE; SEGMENTED NEUTROPHILS % (MAN) 80 % (42-78); TOTAL CELLS COUNTED 100
[2018-12-28 06:19] LABS: ANISOCYTOSIS 4+; BURR CELLS 1+; HYPOCHROMASIA 2+; POIKILOCYTOSIS 2+; POLYCHROMASIA SLIGHT; SCHISTOCYTES 1+; TARGET CELLS 2+
--- NOTE | 2018-12-28 08:54 | RADIOLOGY REPORT (SQ) ---
EXAM DESCRIPTION: CHEST SINGLE VIEW COMPLETED DATE/TIME: 12/28/2018 7:24 am REASON FOR STUDY: copd COMPARISON: 12/25/2018 EXAM PARAMETERS: NUMBER OF VIEWS: One view. TECHNIQUE: Single frontal radiographic view of the chest acquired. RADIATION DOSE: NA LIMITATIONS: None. FINDINGS: LUNGS AND PLEURA: Bibasilar opacities and pleural effusions. Slightly worse than previous . MEDIASTINUM AND HILAR STRUCTURES: No masses. Contour normal. HEART AND VASCULAR STRUCTURES: Heart normal in size. Normal vasculature. BONES: No acute findings. HARDWARE: Venous access catheter unchanged. OTHER: No other significant finding. IMPRESSION: Bibasilar opacities and effusions slightly worse than previous. TECHNICAL DOCUMENTATION: JOB ID: [id number] [employer]- All Rights Reserved Reading location - IP/workstation name: [email or web address]
[2018-12-28] MEDS: NORMAL SALINE 10 ML SDV (SCHEDULED) IV SCH ×2 (09:52→21:39)
[2018-12-28] MEDS: NICOTINE 21 MG/24 HR PATCH.TD24 TD SCH (10:08)
[2018-12-28] MEDS: PANTOPRAZOLE SODIUM 40 MG VIAL IV SCH ×2 (10:09→21:38)
[2018-12-28] MEDS: FUROSEMIDE INJ/PF 20 MG/2 ML SDV IV SCH (10:09)
[2018-12-28] MEDS: ENOXAPARIN SODIUM INJ 40 MG/0.4 ML DISP.SYRIN SUBCUT SCH ×2 (10:09→21:38)
[2018-12-28] MEDS: LEVOFLOXACIN 750 MG/D5W RTU 750 MG/150 ML RTUPB IV SCH (10:10)
--- NOTE | 2018-12-28 11:00 | PDOC PROGRESS REPORT ---
Subjective Progress Note for:: 12/28/18 Subjective:: no pains. Passing flatus Reason For Visit: ACUTE GI BLEED,COLON PERFORATION Physical Exam Vital Signs: Temp Pulse Resp BP Pulse Ox 98.3 F 111 H 32 H 159/79 H 88 L 12/28/18 07:28 12/28/18 08:24 12/28/18 08:24 12/28/18 07:28 12/28/18 08:24 Intake & Output 12/27/18 12/28/18 12/29/18 06:59 06:59 06:59 Intake Total 3588 2174 Output Total 2280 1920 Balance 1308 254 Weight 41.4 kg 41.4 kg Exam: abdomen is soft but still slightly distended Results Laboratory Results: 12/28/18 05:35 12/27/18 03:30 12/28/18 12/28/18 05:35 05:35 WBC 12.3 H RBC 3.66 L Hgb 8.4 L Hct 25.8 L MCV 71 L MCH 22.8 L MCHC 32.4 RDW 31.4 H Plt Count 427 Seg Neutrophils % Not Reportable Lymphocytes % Not Reportable Monocytes % Not Reportable Eosinophils % Not Reportable Basophils % Not Reportable Absolute Neutrophils Not Reportable Absolute Lymphocytes Not Reportable Absolute Monocytes Not Reportable Absolute Eosinophils Not Reportable Absolute Basophils Not Reportable Carbonic Acid 1.15 HCO3/H2CO3 Ratio 22:1 ABG pH 7.46 H ABG pCO2 38.2 ABG pO2 48.1 L ABG HCO3 26.4 H ABG O2 Saturation 86.1 L ABG Base Excess 2.5 FiO2 15 LPM 12/17/18 12/23/18 21:35 10:33 Troponin I < 0.012 < 0.012 Impressions: Chest/Abdomen CTA 12/23/18 00:00 IMPRESSION: Bilateral pulmonary emboli, right more than left. Low clot burden. Moderate left pleural effusion with smaller right pleural effusion. Associated atelectasis. Abdominal aortic aneurysm. Interventional Vascular Procedure 12/23/18 00:00 IMPRESSION: SUCCESSFUL PLACEMENT OF A 5 FR DUAL LUMEN 33 CM PICC IN THE LEFT BASILIC VEIN. PICC Line Insertion 12/23/18 00:00 IMPRESSION: SUCCESSFUL PLACEMENT OF A 5 FR DUAL LUMEN 33 CM PICC IN THE LEFT BASILIC VEIN. Chest X-Ray 07/28/19 06:00 IMPRESSION: Bibasilar opacities and effusions slightly worse than previous. Assessment & Plan - Diagnosis (1) Acute blood loss anemia Is this a current diagnosis for this admission?: Yes (2) Cocaine abuse Is this a current diagnosis for this admission?: Yes (3) GI bleeding Qualifiers: GI bleed type/associated pathology: unspecified gastrointestinal hemorrhage type Qualified Code(s): K92.2 - Gastrointestinal hemorrhage, unspecified Is this a current diagnosis for this admission?: Yes (4) Colon perforation Is this a current diagnosis for this admission?: Yes - Time Time Spent with patient: 15-24 minutes - Plan Summary Plan Summary: Continue full liquids today. K is 3.3 ordered replacement CXR noted.
[2018-12-28] MEDS ORDERED: POTASSI CL 20 MEQ/50 ML RIDER 20 MEQ/50 ML RTUPB IV ONE ×2 (12:00→17:00)
[2018-12-28] MEDS: MAGNESIUM SULFATE/D5W 1 GM/100 ML RTUPB IV SCH ×3 (12:02→15:47)
[2018-12-28] MEDS ORDERED: LORAZEPAM INJ 2 MG/1 ML VIAL IV PRN (17:17)
--- NOTE | 2018-12-28 17:43 | PDOC PROGRESS REPORT ---
Subjective Progress Note for:: 12/28/18 Subjective:: No adverse events overnight. No new complaints. Still remains on heated high flow nasal cannula. Surgery has not advance her diet yet. She wants some real food. She reiterates that she does not want to go on BiPAP or to be intubated or be resuscitated, but she is willing to go to an LTAC. Reason For Visit: ACUTE GI BLEED,COLON PERFORATION Physical Exam Vital Signs: Temp Pulse Resp BP Pulse Ox 97.9 F 119 H 24 H 118/89 H 93 12/28/18 16:10 12/28/18 17:01 12/28/18 16:10 12/28/18 17:01 12/28/18 16:10 Intake & Output 12/27/18 12/28/18 12/29/18 06:59 06:59 06:59 Intake Total 3588 2174 1630 Output Total 2280 1920 1600 Balance 1308 254 30 Weight 41.4 kg 41.4 kg General appearance: PRESENT: disheveled, mild distress, thin Teeth exam: PRESENT: poor dentation Respiratory exam: PRESENT: decreased breath sounds, symmetrical, tachypnea. ABSENT: accessory muscle use, crackles, prolonged expiratory phas, rhonchi, wheezes Cardiovascular exam: PRESENT: Regular rate and rhythm Pulses: PRESENT: normal carotid pulses Vascular exam: PRESENT: normal capillary refill GI/Abdominal exam: PRESENT: normal bowel sounds, soft, tenderness - Mild and appropriate, other - Surgical incision is clean, not erythematous, and without oozing. ABSENT: distended, guarding, rebound Extremities exam: ABSENT: clubbing Musculoskeletal exam: PRESENT: normal inspection. ABSENT: deformity Neurological exam: PRESENT: awake, oriented to person, place, and situation Psychiatric exam: PRESENT: Alert, oriented, a bit cantankerous Skin exam: PRESENT: dry, warm Results Laboratory Results: 12/28/18 05:35 12/27/18 03:30 12/28/18 12/28/18 05:35 05:35 WBC 12.3 H RBC 3.66 L Hgb 8.4 L Hct 25.8 L MCV 71 L MCH 22.8 L MCHC 32.4 RDW 31.4 H Plt Count 427 Seg Neutrophils % Not Reportable Lymphocytes % Not Reportable Monocytes % Not Reportable Eosinophils % Not Reportable Basophils % Not Reportable Absolute Neutrophils Not Reportable Absolute Lymphocytes Not Reportable Absolute Monocytes Not Reportable Absolute Eosinophils Not Reportable Absolute Basophils Not Reportable Carbonic Acid 1.15 HCO3/H2CO3 Ratio 22:1 ABG pH 7.46 H ABG pCO2 38.2 ABG pO2 48.1 L ABG HCO3 26.4 H ABG O2 Saturation 86.1 L ABG Base Excess 2.5 FiO2 15 LPM 12/17/18 12/23/18 21:35 10:33 Troponin I < 0.012 < 0.012 Impressions: Chest/Abdomen CTA 12/23/18 00:00 IMPRESSION: Bilateral pulmonary emboli, right more than left. Low clot burden. Moderate left pleural effusion with smaller right pleural effusion. Associated atelectasis. Abdominal aortic aneurysm. Interventional Vascular Procedure 12/23/18 00:00 IMPRESSION: SUCCESSFUL PLACEMENT OF A 5 FR DUAL LUMEN 33 CM PICC IN THE LEFT BASILIC VEIN. PICC Line Insertion 12/23/18 00:00 IMPRESSION: SUCCESSFUL PLACEMENT OF A 5 FR DUAL LUMEN 33 CM PICC IN THE LEFT BASILIC VEIN. Chest X-Ray 12/28/18 06:00 IMPRESSION: Bibasilar opacities and effusions slightly worse than previous. Assessment and Plan - Diagnosis (1) Acute respiratory acidosis Is this a current diagnosis for this admission?: Yes Plan: Resolved. Currently on heated high flow nasal cannula but still tachypneic and if respiratory tries to wean her settings she tends to deteriorate.. She does not want to go back on BiPAP as easily noted. She was agreeing to do nebulizer treatments. Trying to hold off on starting steroids on her because of her recent surgery, but if her breathing deteriorates we may have to start something to see if that will help her breathing at all. (2) Atrial fibrillation with RVR Is this a current diagnosis for this admission?: Yes Plan: Looks to have converted to a sinus rhythm. On p.o. Cardizem. Anticoagulated, will transition to Eliquis when she is able to take p.o. reliably. (3) Acute blood loss anemia Is this a current diagnosis for this admission?: Yes Plan: Resolved. Hemoglobin has been stable the last several times it has been checked. Suspected to be due to GI bleeding. (4) Cocaine abuse Is this a current diagnosis for this admission?: Yes Plan: Her family moved her down here from [place] and attempt to get her away from her network of Associates in the hopes that she would quit smoking crack. We will offer her counseling services at discharge. (5) Colon perforation Is this a current diagnosis for this admission?: Yes Plan: She came in with some anemia, and through a series of events it seems she had a colon perforation. That has been treated surgically. Incision looks good and her hemoglobin is stable. I increased her Levaquin dose and added Flagyl for anaerobic coverage. Diet advancement per surgical discretion. Once they let her have some food we will switch her medications over to p.o. (6) Bilateral pulmonary embolism Is this a current diagnosis for this admission?: Yes Plan: She had a recent diagnosis of this a couple of months ago and had been on Eliquis. We had to stop it because of her bleeding. We have restarted Lovenox until she can take p.o. again. Talked about restarting anticoagulation with [facility] and they were okay with it. We will switch her to Eliquis when she is able to take p.o. - Time Time Spent with patient: 15-24 minutes
[2018-12-29] MEDS: METRONIDAZOLE 500 MG/NS RTU 500 MG/100 ML RTUPB IV SCH ×2 (00:16→05:35)
[2018-12-29] MEDS: FENTANYL CITRATE INJ/PF 100 MCG/2 ML AMPUL IV PRN ×2 (01:40→08:28)
[2018-12-29] MEDS: LEVALBUTEROL HCL NEB 1.25 MG/3 ML AMPUL NEB SCH ×4 (04:02→16:49)
[2018-12-29] MEDS ORDERED: DILTIAZEM HCL/D5W 125 MG/125 ML RTUINJ IV ONE (06:18)
[2018-12-29] MEDS: DILTIAZEM HCL/D5W 125 MG/125 ML RTUINJ IV PRN (06:28)
[2018-12-29] MEDS: NICOTINE 21 MG/24 HR PATCH.TD24 TD SCH (09:05)
[2018-12-29] MEDS: FUROSEMIDE INJ/PF 20 MG/2 ML SDV IV SCH (09:06)
[2018-12-29] MEDS: ENOXAPARIN SODIUM INJ 40 MG/0.4 ML DISP.SYRIN SUBCUT SCH (09:08)
[2018-12-29] MEDS: PANTOPRAZOLE SODIUM 40 MG VIAL IV SCH (09:08)
[2018-12-29] MEDS ORDERED: LORAZEPAM 0.5 MG TABLET PO PRN (11:05)
[2018-12-29] MEDS: NORMAL SALINE 10 ML SDV (SCHEDULED) IV SCH (11:07)
--- NOTE | 2018-12-29 11:21 | PDOC PROGRESS REPORT ---
Subjective Progress Note for:: 12/21/18 Subjective:: patient on bipap Reason For Visit: ACUTE GI BLEED,COLON PERFORATION Physical Exam Vital Signs: Temp Pulse Resp BP Pulse Ox 99.2 F 96 22 H 116/70 92 12/29/18 09:57 12/29/18 09:57 12/29/18 08:00 12/29/18 09:57 12/29/18 09:57 Intake & Output 12/28/18 12/29/18 12/30/18 06:59 06:59 06:59 Intake Total 2174 2493 Output Total 1920 2800 Balance 254 -307 Weight 41.4 kg 41 kg General appearance: PRESENT: disheveled, mild distress, thin Head exam: PRESENT: atraumatic, normocephalic Eye exam: PRESENT: conjunctiva pink, EOMI, PERRLA. ABSENT: scleral icterus Ear exam: PRESENT: normal external ear exam Mouth exam: PRESENT: moist, tongue midline Neck exam: ABSENT: carotid bruit, JVD, lymphadenopathy, thyromegaly Respiratory exam: PRESENT: decreased breath sounds, rales, rhonchi. ABSENT: wheezes Cardiovascular exam: PRESENT: RRR. ABSENT: diastolic murmur, rubs, systolic murmur Pulses: PRESENT: normal dorsalis pedis pul Vascular exam: PRESENT: normal capillary refill GI/Abdominal exam: PRESENT: normal bowel sounds, soft. ABSENT: distended, guarding, mass, organolmegaly, rebound, tenderness Rectal exam: PRESENT: deferred Extremities exam: PRESENT: full ROM. ABSENT: calf tenderness, clubbing, pedal edema Neurological exam: PRESENT: altered. ABSENT: motor sensory deficit Psychiatric exam: PRESENT: appropriate affect, normal mood. ABSENT: homicidal ideation, suicidal ideation Skin exam: PRESENT: dry, intact, warm. ABSENT: cyanosis, rash Results Laboratory Results: 12/28/18 05:35 12/27/18 03:30 12/17/18 12/23/18 21:35 10:33 Troponin I < 0.012 < 0.012 Impressions: Chest/Abdomen CTA 12/23/18 00:00 IMPRESSION: Bilateral pulmonary emboli, right more than left. Low clot burden. Moderate left pleural effusion with smaller right pleural effusion. Associated atelectasis. Abdominal aortic aneurysm. Interventional Vascular Procedure 12/23/18 00:00 IMPRESSION: SUCCESSFUL PLACEMENT OF A 5 FR DUAL LUMEN 33 CM PICC IN THE LEFT BASILIC VEIN. PICC Line Insertion 12/23/18 00:00 IMPRESSION: SUCCESSFUL PLACEMENT OF A 5 FR DUAL LUMEN 33 CM PICC IN THE LEFT BASILIC VEIN. Chest X-Ray 12/28/18 06:00 IMPRESSION: Bibasilar opacities and effusions slightly worse than previous. 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 Entered by Nina Jalloh, acting as scribe for Dr. Platt.
--- NOTE | 2018-12-29 11:22 | PDOC PROGRESS REPORT ---
Subjective Progress Note for:: 12/22/18 Subjective:: patient on bipap Reason For Visit: ACUTE GI BLEED,COLON PERFORATION Physical Exam Vital Signs: Temp Pulse Resp BP Pulse Ox 99.2 F 93 22 H 104/67 92 12/29/18 09:57 12/29/18 11:00 12/29/18 08:00 12/29/18 11:00 12/29/18 09:57 Intake & Output 12/28/18 12/29/18 12/30/18 06:59 06:59 06:59 Intake Total 2174 2493 Output Total 1920 2800 Balance 254 -307 Weight 41.4 kg 41 kg General appearance: PRESENT: no acute distress, well-developed, well-nourished Head exam: PRESENT: atraumatic, normocephalic Eye exam: PRESENT: conjunctiva pink, EOMI, PERRLA. ABSENT: scleral icterus Ear exam: PRESENT: normal external ear exam Mouth exam: PRESENT: moist, tongue midline Neck exam: ABSENT: carotid bruit, JVD, lymphadenopathy, thyromegaly Respiratory exam: PRESENT: clear to auscultation morteza. ABSENT: rales, rhonchi, wheezes Cardiovascular exam: PRESENT: RRR. ABSENT: diastolic murmur, rubs, systolic murmur Pulses: PRESENT: normal dorsalis pedis pul Vascular exam: PRESENT: normal capillary refill GI/Abdominal exam: PRESENT: normal bowel sounds, soft. ABSENT: distended, guarding, mass, organolmegaly, rebound, tenderness Rectal exam: PRESENT: deferred Extremities exam: PRESENT: full ROM. ABSENT: calf tenderness, clubbing, pedal edema Neurological exam: PRESENT: alert, awake, oriented to person, oriented to place, oriented to time, oriented to situation, CN II-XII grossly intact. ABSENT: motor sensory deficit Psychiatric exam: PRESENT: appropriate affect, normal mood. ABSENT: homicidal ideation, suicidal ideation Skin exam: PRESENT: dry, intact, warm. ABSENT: cyanosis, rash Results Laboratory Results: 12/28/18 05:35 12/27/18 03:30 12/17/18 12/23/18 21:35 10:33 Troponin I < 0.012 < 0.012 Impressions: Chest/Abdomen CTA 12/23/18 00:00 IMPRESSION: Bilateral pulmonary emboli, right more than left. Low clot burden. Moderate left pleural effusion with smaller right pleural effusion. Associated atelectasis. Abdominal aortic aneurysm. Interventional Vascular Procedure 12/23/18 00:00 IMPRESSION: SUCCESSFUL PLACEMENT OF A 5 FR DUAL LUMEN 33 CM PICC IN THE LEFT BASILIC VEIN. PICC Line Insertion 12/23/18 00:00 IMPRESSION: SUCCESSFUL PLACEMENT OF A 5 FR DUAL LUMEN 33 CM PICC IN THE LEFT BASILIC VEIN. Chest X-Ray 12/28/18 06:00 IMPRESSION: Bibasilar opacities and effusions slightly worse than previous. 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 Entered by Nina Jalloh, acting as scribe for Dr. Platt.
--- NOTE | 2018-12-29 11:24 | PDOC PROGRESS REPORT ---
Subjective Progress Note for:: 12/23/18 Subjective:: patient on bipap Reason For Visit: ACUTE GI BLEED,COLON PERFORATION Physical Exam Vital Signs: Temp Pulse Resp BP Pulse Ox 99.2 F 93 22 H 104/67 92 12/29/18 09:57 12/29/18 11:00 12/29/18 08:00 12/29/18 11:00 12/29/18 09:57 Intake & Output 12/28/18 12/29/18 12/30/18 06:59 06:59 06:59 Intake Total 2174 2493 Output Total 1920 2800 Balance 254 -307 Weight 41.4 kg 41 kg General appearance: PRESENT: no acute distress, well-developed, well-nourished Head exam: PRESENT: atraumatic, normocephalic Eye exam: PRESENT: conjunctiva pink, EOMI, PERRLA. ABSENT: scleral icterus Ear exam: PRESENT: normal external ear exam Mouth exam: PRESENT: moist, tongue midline Teeth exam: PRESENT: poor dentation Neck exam: ABSENT: carotid bruit, JVD, lymphadenopathy, thyromegaly Respiratory exam: PRESENT: decreased breath sounds, symmetrical, tachypnea. ABSENT: rales, rhonchi, wheezes Cardiovascular exam: PRESENT: RRR. ABSENT: diastolic murmur, rubs, systolic murmur Pulses: PRESENT: normal dorsalis pedis pul Vascular exam: PRESENT: normal capillary refill GI/Abdominal exam: PRESENT: normal bowel sounds, soft. ABSENT: distended, guarding, mass, organolmegaly, rebound, tenderness Rectal exam: PRESENT: deferred Extremities exam: PRESENT: full ROM. ABSENT: calf tenderness, clubbing, pedal edema Neurological exam: PRESENT: alert, awake, oriented to person, oriented to place, oriented to time, oriented to situation, CN II-XII grossly intact. ABSENT: motor sensory deficit Psychiatric exam: PRESENT: appropriate affect, normal mood. ABSENT: homicidal ideation, suicidal ideation Skin exam: PRESENT: dry, intact, warm. ABSENT: cyanosis, rash Results Laboratory Results: 12/28/18 05:35 12/27/18 03:30 12/17/18 12/23/18 21:35 10:33 Troponin I < 0.012 < 0.012 Impressions: Chest/Abdomen CTA 12/23/18 00:00 IMPRESSION: Bilateral pulmonary emboli, right more than left. Low clot burden. Moderate left pleural effusion with smaller right pleural effusion. Associated atelectasis. Abdominal aortic aneurysm. Interventional Vascular Procedure 12/23/18 00:00 IMPRESSION: SUCCESSFUL PLACEMENT OF A 5 FR DUAL LUMEN 33 CM PICC IN THE LEFT BASILIC VEIN. PICC Line Insertion 12/23/18 00:00 IMPRESSION: SUCCESSFUL PLACEMENT OF A 5 FR DUAL LUMEN 33 CM PICC IN THE LEFT BASILIC VEIN. Chest X-Ray 12/28/18 06:00 IMPRESSION: Bibasilar opacities and effusions slightly worse than previous. Assessment & Plan - Diagnosis (1) Atrial fibrillation with RVR Is this a current diagnosis for this admission?: Yes Plan: stable, has not been anticoagulated (2) Bilateral pulmonary embolism Is this a current diagnosis for this admission?: Yes Plan: lovenox (3) Cocaine abuse Is this a current diagnosis for this admission?: Yes Plan: patient admits to problem (4) Diverticular disease of intestine with perforation and abscess Is this a current diagnosis for this admission?: Yes Plan: s/p colonoscopy with perf and repair (5) Tobacco abuse Is this a current diagnosis for this admission?: Yes Plan: transdermal nicotine and tobacco abuse counseling - Time Total Critical Time (Minutes): 40 Inpatient Scribe Statement - . Entered by Nina Jalloh, acting as scribe for Dr. Platt.
--- NOTE | 2018-12-29 11:27 | PDOC PROGRESS REPORT ---
Subjective Progress Note for:: 12/24/18 Subjective:: patient refusing to utilize the bipap Reason For Visit: ACUTE GI BLEED,COLON PERFORATION Physical Exam Vital Signs: Temp Pulse Resp BP Pulse Ox 99.2 F 93 22 H 104/67 92 12/29/18 09:57 12/29/18 11:00 12/29/18 08:00 12/29/18 11:00 12/29/18 09:57 Intake & Output 12/28/18 12/29/18 12/30/18 06:59 06:59 06:59 Intake Total 2174 2493 Output Total 1920 2800 Balance 254 -307 Weight 41.4 kg 41 kg General appearance: PRESENT: disheveled, mild distress, thin Head exam: PRESENT: atraumatic, normocephalic Eye exam: PRESENT: conjunctiva pink, EOMI, PERRLA. ABSENT: scleral icterus Ear exam: PRESENT: normal external ear exam Mouth exam: PRESENT: moist, tongue midline Neck exam: ABSENT: carotid bruit, JVD, lymphadenopathy, thyromegaly Respiratory exam: PRESENT: decreased breath sounds, symmetrical, tachypnea. ABSENT: rales, rhonchi, wheezes Cardiovascular exam: PRESENT: RRR. ABSENT: diastolic murmur, rubs, systolic murmur Pulses: PRESENT: normal dorsalis pedis pul Vascular exam: PRESENT: normal capillary refill GI/Abdominal exam: PRESENT: normal bowel sounds, soft. ABSENT: distended, guarding, mass, organolmegaly, rebound, tenderness Rectal exam: PRESENT: deferred Extremities exam: PRESENT: full ROM. ABSENT: calf tenderness, clubbing, pedal edema Neurological exam: PRESENT: alert, awake, oriented to person, oriented to place, oriented to time, oriented to situation, CN II-XII grossly intact. ABSENT: motor sensory deficit Psychiatric exam: PRESENT: appropriate affect, normal mood. ABSENT: homicidal ideation, suicidal ideation Skin exam: PRESENT: dry, intact, warm. ABSENT: cyanosis, rash Results Laboratory Results: 12/17/18 12/23/18 21:35 10:33 Troponin I < 0.012 < 0.012 Impressions: Chest/Abdomen CTA 12/23/18 00:00 IMPRESSION: Bilateral pulmonary emboli, right more than left. Low clot burden. Moderate left pleural effusion with smaller right pleural effusion. Associated atelectasis. Abdominal aortic aneurysm. Interventional Vascular Procedure 12/23/18 00:00 IMPRESSION: SUCCESSFUL PLACEMENT OF A 5 FR DUAL LUMEN 33 CM PICC IN THE LEFT BASILIC VEIN. PICC Line Insertion 12/23/18 00:00 IMPRESSION: SUCCESSFUL PLACEMENT OF A 5 FR DUAL LUMEN 33 CM PICC IN THE LEFT BASILIC VEIN. Chest X-Ray 12/28/18 06:00 IMPRESSION: Bibasilar opacities and effusions slightly worse than previous. 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 Entered by Nina Jalloh, acting as scribe for Dr. Platt.
[2018-12-29 11:34] LABS: HEMATOCRIT 24.9 % (36.0-47.0); MEAN CORPUSCULAR HEMOGLOBIN 22.7 pg (27.0-33.4); MEAN CORPUSCULAR HGB CONC 32.2 g/dL (32.0-36.0); MEAN CORPUSCULAR VOLUME 70 fl (80-97); PLATELET COUNT 549 10^3/uL (150-450); RED BLOOD COUNT 3.54 10^6/uL (3.72-5.28); RED CELL DISTRIBUTION WIDTH 31.7 % (11.5-14.0); WHITE BLOOD COUNT 14.1 10^3/uL (4.0-10.5)
[2018-12-29 11:53] LABS: ANION GAP 9 (5-19); BLOOD UREA NITROGEN 4 mg/dL (7-20); CARBON DIOXIDE 28 mmol/L (22-30); CHLORIDE 99 mmol/L (98-107); GLUCOSE 136 mg/dL (75-110); POTASSIUM 3.4 mmol/L (3.6-5.0)
[2018-12-29] MEDS: METRONIDAZOLE 500 MG TABLET PO SCH ×2 (12:03→18:23)
--- NOTE | 2018-12-29 12:16 | PDOC TRANSFER SUMMARY ---
General Admission Date/PCP: 12/18/18 00:37 Transfer Date: 12/29/18 Accepting Facility: Other (Comments) - LTAC Resuscitation Status: Do Not Resuscitate - DNR/DNI - Transfer Diagnosis (1) Acute respiratory acidosis Is this a current diagnosis for this admission?: Yes Diagnosis Summary: When she came to the ICU postoperatively, it took a few days to get her extubated. She was then on BiPAP for a few days and we were eventually able to get her down to a heated high flow nasal cannula. Since then we have not been able to de-escalate to a regular nasal cannula. (2) Atrial fibrillation with RVR Is this a current diagnosis for this admission?: Yes Diagnosis Summary: She was tachycardic postoperatively and went into A. fib with RVR. Initially we had to put her on amiodarone drip because we gave her IV digoxin and it did nothing for her heart rate. She was hypotensive at the time is why amiodarone was chosen. Her heart rate control improved after a day on the amiodarone drip and her blood pressure improved, so she was transitioned over to Cardizem. Since then she has been in and out of atrial fibrillation but her heart rate is been controlled and her blood pressure has remained in the normal range. She was previously anticoagulated for history of PE and so her Eliquis is being continued at this time. (3) Acute blood loss anemia Is this a current diagnosis for this admission?: Yes Diagnosis Summary: This was her initial presentation which required colonoscopy. She is received some packed red blood cells and is no longer bleeding. Talked to surgery before we resumed anticoagulation, and they were okay with doing so and she is tolerated it fine without having any bleeding events. (4) Cocaine abuse Is this a current diagnosis for this admission?: Yes Diagnosis Summary: She has a long history of tobacco abuse and smoking crack cocaine. She has some lung scarring as a result. (5) Colon perforation Is this a current diagnosis for this admission?: Yes Diagnosis Summary: This was noted during her colonoscopy. She had exploratory laparotomy with a partial colectomy and reanastomosis. She is done well postoperatively and her diet is being advanced with good effect. (6) Bilateral pulmonary embolism Is this a current diagnosis for this admission?: Yes Diagnosis Summary: This was present on admission. She was on Eliquis as an outpatient and has now been resumed. - Transfer Medications Home Medications: Aspirin [Ecotrin 81 mg EC Tablet] 81 mg PO DAILY 12/18/18 Calcium Carbonate/Vitamin D3 [Calcium 600 + Vit D Tablet] 1 tab PO DAILY 0 12/18/18 Cholecalciferol (Vitamin D3) [Vitamin D3 2000 unit Tablet] 2,000 unit PO DAILY 12/18/18 Transfer Medications: Current Medications Acetaminophen (Tylenol 325 Mg Tablet) 325 mg PO Q4HP PRN PRN Reason: FOR PAIN OR TEMP Stop: 01/17/19 00:03 Hydrocodone Bitart/Acetaminophen ([place] 5-325 Mg Tablet) 1 tab PO Q6HP PRN PRN Reason: FOR PAIN Stop: 01/05/19 11:04 Albuterol/Ipratropium (Duoneb 3 Ml Ampul) 3 ml NEB [id number] PRN PRN Reason: SHORTNESS OF BREATH Stop: 01/17/19 00:03 Last Admin: 12/25/18 23:37 Dose: 3 ml Documented by: Apixaban (Eliquis 5 Mg Tablet) 5 mg PO BID BLANCHE Stop: 01/28/19 17:59 Dextrose (Dextrose Inj 50% Syringe (25 Gm/50 Ml)) 12.5 gm IV PRN PRN; Protocol PRN Reason: FOR BG 50-69 IN ALERT PATIENT Stop: 01/17/19 12:05 Dextrose (Dextrose Inj 50% Syringe (25 Gm/50 Ml)) 25 gm IV PRN PRN; Protocol PRN Reason: See Label Comments Stop: 01/17/19 12:05 Diltiazem HCl (Cardizem Cd 180 Mg Capsule) 360 mg PO DAILY BLANCHE Stop: 01/28/19 11:59 Furosemide (Lasix 20 Mg Tablet) 20 mg PO DAILY BLANCHE Stop: 01/29/19 09:59 Glucagon (Glucagen Inj 1 Mg Vial) 1 mg SUBCUT PRN PRN; Protocol PRN Reason: Evaluate for BG < 70 Stop: 01/17/19 12:05 Glucose (Glutose 40% Gel 15 Gm Tube) 15 gm PO PRN PRN; Protocol PRN Reason: For BG 50-69 in Alert Patient Stop: 01/17/19 12:05 Glucose (Glutose 40% Gel 15 Gm Tube) 30 gm PO PRN PRN; Protocol PRN Reason: FOR BG < 50 IN ALERT PATIENT Stop: 01/17/19 12:05 Heparin Sodium (Porcine) (Heparin Flush 10 Unit/Ml 5 Ml Disp.Syrg) 30 unit IV Q12 BLANCHE Stop: 01/22/19 21:59 Last Admin: 12/29/18 09:09 Dose: 30 unit Documented by: Heparin Sodium (Porcine) (Heparin Flush 10 Unit/Ml 5 Ml Disp.Syrg) 30 unit IV .AFTER EACH USE PRN Stop: 01/22/19 11:59 Hydralazine HCl (Apresoline Inj/Pf 20 Mg/1 Ml Sdv) 10 mg IV Q3HP PRN PRN Reason: Give For Sbp > [150] Stop: 01/18/19 14:18 Last Admin: 12/24/18 02:31 Dose: 10 mg Documented by: Levalbuterol HCl (Xopenex Neb 1.25 Mg/3 Ml Ampul) 1.25 mg NEB RTQ4 BLANCHE Stop: 01/23/19 16:56 Last Admin: 12/29/18 11:21 Dose: 1.25 mg Documented by: Levofloxacin (Levaquin 750 Mg Tablet) 750 mg PO DAILY BLANCHE Stop: 01/06/19 09:59 Lorazepam (Ativan 0.5 Mg Tablet) 0.5 mg PO Q8HP PRN PRN Reason: ANXIETY/AGITATION Stop: 01/05/19 11:04 Metronidazole (Flagyl 500 Mg Tablet) 500 mg PO Q6 BLANCHE Stop: 01/05/19 11:59 Nicotine (Nicoderm 21 Mg/24 Hr Transderm Patch) 1 each TD DAILY BLANCHE Stop: 01/18/19 14:59 Last Admin: 12/29/18 09:05 Dose: 1 each Documented by: Pantoprazole Sodium (Protonix [address] Tablet) 40 mg PO BID@0600,1700 BLANCHE Stop: 01/28/19 16:59 Sodium Chloride (Nacl 0.9% Inj/Pf 10 Ml Sdv) 10 ml IV Q12 BLANCHE Stop: 01/22/19 21:59 Last Admin: 12/29/18 11:07 Dose: Not Given Documented by: Sodium Chloride (Nacl 0.9% Inj/Pf 10 Ml Sdv) 10 ml IV .AFTER EACH USE PRN Stop: 01/22/19 11:59 - Allergies Allergies/Adverse Reactions: No Known Allergies Allergy (Unverified 12/18/18 12:40) - Diet/Activity Discharge Diet: Full Liquids - advance diet as tolerated to cardiac diet Discharge Activity: Balance Activity w/Rest, No Driving, No Lifting Over 10 Pounds, No Lifting/Push/Pulling, Slowly Increase Activity, Supervised Activity, No tub bath Hospital Course Hospital Course: She was admitted with anemia and GI bleeding. She went for a colonoscopy and at that point the colon perforation was noted, it is being attributed to a diverticular perforation. She underwent a partial colectomy with reanastomosis. She was sent to the ICU postoperatively. She was extubated a couple of days later and put on BiPAP. She was dependent on this for a few days but eventually we were able to get her to a nasal cannula, but she was requiring a lot more oxygen and flow and so we eventually got her on to heated high flow nasal cannula. She has done fine with that, but we have not been able to titrated downwards to get her onto a regular nasal cannula. From the standpoint of her surgery, she will require surgical follow-up in 10 to 14 days. Her diet has been advanced and she is tolerating it well. She is now taking oral medications. She was put on antibiotics for possible intra-abdominal infection and she has completed about a week thus far, and she will need 1 more week of Levaquin and Flagyl. She went into atrial fibrillation while in the ICU, with RVR. She was given a dose of digoxin IV because her blood pressure was low, and it did not have any effect on her heart rate. Therefore, and amiodarone drip was chosen. She was on this for a day and it helped get her heart rate down her blood pressure came up. She was then transitioned over to a Cardizem drip. She is now on oral Cardizem. Her home Eliquis, which had been prescribed for a recent diagnosis of PE, has also been resumed. Because of her persistent hypoxemia, bed placement was sought in a long-term acute care facility. She has a bed and is being transferred today in stable condition. Physical Exam Vital Signs: Temp Pulse Resp BP Pulse Ox 99.2 F 97 22 H 104/67 88 L 12/29/18 09:57 12/29/18 11:27 12/29/18 11:27 12/29/18 11:00 12/29/18 11:27 Intake & Output 12/28/18 12/29/18 12/30/18 06:59 06:59 06:59 Intake Total 217 2493 Output Total 1920 2800 Balance 254 -307 Weight 41.4 kg 41 kg General appearance: PRESENT: disheveled, no acute distress, thin Teeth exam: PRESENT: poor dentation Respiratory exam: PRESENT: decreased breath sounds, symmetrical, tachypnea. ABSENT: accessory muscle use, crackles, prolonged expiratory phase, rhonchi, wheezes Cardiovascular exam: PRESENT: Regular rate and rhythm Pulses: PRESENT: normal carotid pulses Vascular exam: PRESENT: normal capillary refill GI/Abdominal exam: PRESENT: normal bowel sounds, soft, tenderness - Mild and appropriate, other - Surgical incision is clean, not erythematous, and without oozing. ABSENT: distended, guarding, rebound Extremities exam: ABSENT: clubbing Musculoskeletal exam: PRESENT: normal inspection. ABSENT: deformity Neurological exam: PRESENT: awake, oriented to person, place, and situation Psychiatric exam: PRESENT: Alert, oriented, a bit cantankerous Skin exam: PRESENT: dry, warm Results Laboratory Results: 12/29/18 10:54 12/29/18 10:54 12/29/18 12/29/18 10:54 10:54 WBC 14.1 H RBC 3.54 L Hgb 8.0 L Hct 24.9 L MCV 70 L MCH 22.7 L MCHC 32.2 RDW 31.7 H Plt Count 549 H Sodium 135.9 L Potassium 3.4 L Chloride 99 Carbon Dioxide 28 Anion Gap 9 BUN 4 L Creatinine 0.66 Est GFR ( Amer) > 60 Est GFR (Non-Af Amer) > 60 Glucose 136 H Calcium 8.0 L Magnesium 1.6 12/17/18 12/23/18 21:35 10:33 Troponin I < 0.012 < 0.012 Impressions: Chest/Abdomen CTA 12/23/18 00:00 IMPRESSION: Bilateral pulmonary emboli, right more than left. Low clot burden. Moderate left pleural effusion with smaller right pleural effusion. Associated atelectasis. Abdominal aortic aneurysm. Interventional Vascular Procedure 12/23/18 00:00 IMPRESSION: SUCCESSFUL PLACEMENT OF A 5 FR DUAL LUMEN 33 CM PICC IN THE LEFT BASILIC VEIN. PICC Line Insertion 12/23/18 00:00 IMPRESSION: SUCCESSFUL PLACEMENT OF A 5 FR DUAL LUMEN 33 CM PICC IN THE LEFT BASILIC VEIN. Chest X-Ray 12/28/18 06:00 IMPRESSION: Bibasilar opacities and effusions slightly worse than previous. Plan Time Spent: Greater than 30 Minutes
[2018-12-29] MEDS ORDERED: DILTIAZEM HCL 180 MG CAPSULE.CR PO SCH (13:00)
[2018-12-29] MEDS: HYDROCODONE/ACETAMINOPHEN 5-325 MG TABLET PO PRN ×2 (13:06→19:07)
[2018-12-29] MEDS ORDERED: PANTOPRAZOLE SODIUM 40 MG TABLET.DR PO SCH (17:00)
[2018-12-29] MEDS ORDERED: APIXABAN 5 MG TABLET PO SCH (18:00)
[2018-12-29 19:04] VITALS: BP 110/63
--- NOTE | 2018-12-29 19:42 | PDOC PROGRESS REPORT ---
Subjective Progress Note for:: 12/29/18 Subjective:: no pains. small amount of flatus. Tolerating full liquids Reason For Visit: ACUTE GI BLEED,COLON PERFORATION Physical Exam Vital Signs: Temp Pulse Resp BP Pulse Ox 98.1 F 95 22 H 110/63 92 12/29/18 15:24 12/29/18 19:00 12/29/18 16:49 12/29/18 19:00 12/29/18 16:49 Intake & Output 12/28/18 12/29/18 12/30/18 06:59 06:59 06:59 Intake Total 2174 2493 671 Output Total 1920 2800 1150 Balance 704 -939 -194 Weight 41.4 kg 41 kg Exam: abdomen remains soft and non tender,Less distended Results Laboratory Results: 12/29/18 10:54 12/29/18 10:54 12/29/18 12/29/18 10:54 10:54 WBC 14.1 H RBC 3.54 L Hgb 8.0 L Hct 24.9 L MCV 70 L MCH 22.7 L MCHC 32.2 RDW 31.7 H Plt Count 549 H Sodium 135.9 L Potassium 3.4 L Chloride 99 Carbon Dioxide 28 Anion Gap 9 BUN 4 L Creatinine 0.66 Est GFR ( Amer) > 60 Est GFR (Non-Af Amer) > 60 Glucose 136 H Calcium 8.0 L Magnesium 1.6 12/17/18 12/23/18 21:35 10:33 Troponin I < 0.012 < 0.012 Impressions: Chest/Abdomen CTA 12/23/18 00:00 IMPRESSION: Bilateral pulmonary emboli, right more than left. Low clot burden. Moderate left pleural effusion with smaller right pleural effusion. Associated atelectasis. Abdominal aortic aneurysm. Interventional Vascular Procedure 12/23/18 00:00 IMPRESSION: SUCCESSFUL PLACEMENT OF A 5 FR DUAL LUMEN 33 CM PICC IN THE LEFT BASILIC VEIN. PICC Line Insertion 12/23/18 00:00 IMPRESSION: SUCCESSFUL PLACEMENT OF A 5 FR DUAL LUMEN 33 CM PICC IN THE LEFT BASILIC VEIN. Chest X-Ray 12/28/18 06:00 IMPRESSION: Bibasilar opacities and effusions slightly worse than previous. Assessment & Plan - Diagnosis (1) Acute blood loss anemia Is this a current diagnosis for this admission?: Yes (2) Cocaine abuse Is this a current diagnosis for this admission?: Yes (3) GI bleeding Qualifiers: GI bleed type/associated pathology: unspecified gastrointestinal hemorrhage type Qualified Code(s): K92.2 - Gastrointestinal hemorrhage, unspecified Is this a current diagnosis for this admission?: Yes (4) Colon perforation Is this a current diagnosis for this admission?: Yes - Time Time Spent with patient: 15-24 minutes - Plan Summary Plan Summary: OK to transfer to Rehab Increase diet as tolerated
[2018-12-30] MEDS ORDERED: FUROSEMIDE 20 MG TABLET PO SCH (10:00)
[2018-12-30] MEDS ORDERED: LEVOFLOXACIN 750 MG TABLET PO SCH (10:00)
[2018-12-30] MEDS ORDERED: DILTIAZEM HCL 180 MG CAPSULE.CR PO SCH (11:45)
== END 2018-12-29 20:20 | disposition other institution (70) | DRG 329 ==
LOC: ER 20:14 → EH 12-18 00:37 → 5 12-18 17:27 → ICU 12-20 13:13 → 3N 12-28 00:56
PROVIDERS: ADMIT Internal Medicine; ATTEND Internal Medicine
PROC: 30233N1 Transfusion of Nonautologous Red Blood Cells into Peripheral Vein, Percutaneous Approach (ICD-10-PCS; 2018-12-18)
PROC: 0DB68ZX Excision of Stomach, Via Natural or Artificial Opening Endoscopic, Diagnostic (ICD-10-PCS; 2018-12-20)
PROC: 0DJD8ZZ Inspection of Lower Intestinal Tract, Via Natural or Artificial Opening Endoscopic (ICD-10-PCS; 2018-12-20)
PROC: 0DQL0ZZ Repair Transverse Colon, Open Approach (ICD-10-PCS; principal; 2018-12-20 10:27)
PROC: 0DNL0ZZ Release Transverse Colon, Open Approach (ICD-10-PCS; 2018-12-20 10:27)
PROC: 5A09357 Assistance with Respiratory Ventilation, Less than 24 Consecutive Hours, Continuous Positive Airway Pressure (ICD-10-PCS; 2018-12-21)
PROC: 02HV33Z Insertion of Infusion Device into Superior Vena Cava, Percutaneous Approach (ICD-10-PCS; 2018-12-23)
DX: K57.20 Diverticulitis of large intestine with perforation and abscess without bleeding (principal); K29.71 Gastritis, unspecified, with bleeding; I26.99 Other pulmonary embolism without acute cor pulmonale; E87.2 Acidosis; D62 Acute posthemorrhagic anemia; K56.7 Ileus, unspecified; I95.9 Hypotension, unspecified; J44.9 Chronic obstructive pulmonary disease, unspecified; I48.91 Unspecified atrial fibrillation; F30.8 Other manic episodes; D50.9 Iron deficiency anemia, unspecified; I10 Essential (primary) hypertension; F17.200 Nicotine dependence, unspecified, uncomplicated; Z66 Do not resuscitate; R00.0 Tachycardia, unspecified; F14.129 Cocaine abuse with intoxication, unspecified; D72.829 Elevated white blood cell count, unspecified; Z87.11 Personal history of peptic ulcer disease; Z86.73 Personal history of transient ischemic attack (TIA), and cerebral infarction without residual deficits; Z82.49 Family history of ischemic heart disease and other diseases of the circulatory system
CPT/HCPCS: 36415; 36430; 36569; 36600; 43239; 45378; 71045; 71046; 71275; 76937; 790; 80048; 80053; 80307; 81001; 82271; 82607; 82728; 82746; 82803; 82962; 83540; 83550; 83605; 83690; 83735; 84100; 84484; 85025; 85027; 85045; 85610; 86850; 86900; 86901; 86920; 88305; 88342; 93005; 93010; 94002; 94003; 94640; 94660; 94799; 99285; C9290; J0131; J0282; J0295; J0360; J1160; J1642; J1650; J1756; J1940; J1956; J2060; J2250; J2370; J2704; J3010; J3475; J3480; J3490; J7030; J7042; J7050; J7060; J7620; P9016; S0164